=== PATIENT | male | born 1965 | race Caucasian/White ===

== ENCOUNTER 2019-02-21 18:21 | Inpatient (IN) | payer BC, MEDICARE ==
[~2019-02-21] VITALS: Ht 185.4 cm; Wt 113.2 kg
[2019-02-21 19:36] LABS: Basophils # (auto) 0 uL; Basophils % (auto) 0.6 % (0.0-2.0); Eosinophils # (auto) 0.2 uL; Eosinophils % (auto) 2.7 % (0.0-7.0); Hematocrit 32.6 % (41.0-53.0); Hemoglobin 11.1 g/dL (13.5-17.5); Lymphocytes # (auto) 1.1 uL; Lymphocytes % (auto) 12.2 % (10.0-50.0); Mean Corpuscular Hemoglobin 31.3 pg (28.0-32.0); Monocytes # (auto) 0.5 uL; Monocytes % (auto) 5.5 % (0.0-12.0); Neutrophils # (auto) 6.8 uL; Platelet Count (auto) 199 10^3/uL (140-450); Red Blood Cells 3.55 10^6/uL (4.5-5.90); Red Cell Distribution Width 13.8 % (11.8-14.3); White Blood Cell 8.6 10^3/uL (4.4-10.8)
[2019-02-21 20:05] LABS: Albumin 2.5 g/dL (3.4-5.0); BUN/Creatinine Ratio 9.4; Calcium 7.2 mg/dL (8.5-10.1); Potassium 3.9 mmol/L (3.5-5.1)
[2019-02-21 20:08] LABS: Bilirubin, Total 0.2 mg/dL (0.2-1.0); Total Protein 6.2 g/dL (6.4-8.2)
[2019-02-22] MEDS ORDERED: VANCOMYCIN 1GM/250ML 250 ML IV ONE (02:45)
[2019-02-22] MEDS ORDERED: cefTRIAXone 1GM/50ML D5W 50 ML IV ONE (02:45)
[2019-02-22] MEDS ORDERED: NITROGLYCERIN 0.4 MG SL TAB SL PRN (10:30)
[2019-02-22] MEDS ORDERED: MORPHINE SULF INJ 2 MG/ML SYRINGE 1ML IV PRN (10:30)
[2019-02-22] MEDS ORDERED: DEXTROSE (50%) 50ML SYRG IV PRN (10:30)
[2019-02-22] MEDS ORDERED: InsuLIN REG 1unit/0.01ml Soln (100units/ml) SC SCH (11:30)
[2019-02-22] MEDS: ACCU-CHEK COMFORT CURVE STRIP VI SCH ×3 (12:18→21:36)
[2019-02-22] MEDS: PIPERACILLIN-TAZOB 2.25GM 50 ML IV SCH ×3 (12:46→23:56)
[2019-02-22 13:45] VITALS: BP 150/72
[2019-02-22 13:51] VITALS: BP 150/72
[2019-02-22 16:45] VITALS: BP 151/76
[2019-02-22] MEDS: INSULIN 70/30 1unit/0.01ml Susp (100units/ml) SC SCH (17:29)
[2019-02-22] MEDS ORDERED: CARV6.2551 PO (18:56)
[2019-02-22] MEDS ORDERED: LEVO25TA6 PO (18:56)
[2019-02-22] MEDS ORDERED: PAR20T PO (18:56)
[2019-02-22] MEDS ORDERED: FERR1TAB17 PO (18:56)
[2019-02-22] MEDS ORDERED: ATOR20TA50 PO (18:56)
[2019-02-22] MEDS ORDERED: TAMS0.4C36 PO (18:56)
[2019-02-22] MEDS ORDERED: AMLO10TA13 PO (18:56)
[2019-02-22] MEDS ORDERED: HYDR50TA15 PO (18:56)
[2019-02-22] MEDS: INSULIN LANTUS (GLARGINE) 1 /0.01ml (100units/ml) SC SCH (21:36)
[2019-02-22 22:00] VITALS: BP 147/70
[2019-02-23 05:00] VITALS: BP 136/70
[2019-02-23 05:40] LABS: Albumin 2.3 g/dL (3.4-5.0); BUN/Creatinine Ratio 8.8; Calcium 8.4 mg/dL (8.5-10.1); Potassium 4.1 mmol/L (3.5-5.1)
[2019-02-23 05:41] LABS: Bilirubin, Total 0.3 mg/dL (0.2-1.0); Phosphorus 3.7 mg/dL (2.5-4.90); Total Protein 5.8 g/dL (6.4-8.2)
[2019-02-23] MEDS: PIPERACILLIN-TAZOB 2.25GM 50 ML IV SCH ×3 (05:53→17:38)
[2019-02-23] MEDS: ACCU-CHEK COMFORT CURVE STRIP VI SCH ×4 (06:37→21:15)
[2019-02-23] MEDS: INSULIN 70/30 1unit/0.01ml Susp (100units/ml) SC SCH ×3 (08:24→17:30)
[2019-02-23 08:58] VITALS: BP 150/75
[2019-02-23] MEDS: INSULIN LANTUS (GLARGINE) 1 /0.01ml (100units/ml) SC SCH ×2 (11:09→21:14)
[2019-02-23 12:30] VITALS: BP 152/77
[2019-02-23 16:54] VITALS: BP 161/75
[2019-02-23 22:00] VITALS: BP 153/67
[2019-02-23] MEDS: HYDROcodone-ACET 10/325MG TAB PO PRN (22:05)
[2019-02-24] MEDS: PIPERACILLIN-TAZOB 2.25GM 50 ML IV SCH ×2 (00:45→06:01)
[2019-02-24 05:00] VITALS: BP 154/72
[2019-02-24] MEDS: HYDROcodone-ACET 10/325MG TAB PO PRN ×2 (06:01→22:19)
[2019-02-24 08:00] VITALS: BP 157/83
[2019-02-24] MEDS: INSULIN 70/30 1unit/0.01ml Susp (100units/ml) SC SCH ×3 (08:00→17:30)
[2019-02-24] MEDS: ACCU-CHEK COMFORT CURVE STRIP VI SCH ×4 (08:01→22:11)
[2019-02-24 08:50] VITALS: BP 157/83
[2019-02-24] MEDS: INSULIN LANTUS (GLARGINE) 1 /0.01ml (100units/ml) SC SCH ×2 (10:31→22:11)
[2019-02-24 13:00] VITALS: BP 145/74
[2019-02-24] MEDS ORDERED: HEPARIN 1,000 UNITS/ml 1ML VIAL IV ONE ×2 (14:00)
[2019-02-24 17:00] VITALS: BP 150/70
[2019-02-24] MEDS: ceFAZolin 1GM/50ML 50 ML IV SCH (17:47)
[2019-02-24 22:00] VITALS: BP 141/66
[2019-02-25 05:34] VITALS: BP 139/68
[2019-02-25] MEDS: ACCU-CHEK COMFORT CURVE STRIP VI SCH ×2 (07:08→11:26)
[2019-02-25] MEDS: INSULIN 70/30 1unit/0.01ml Susp (100units/ml) SC SCH ×2 (08:00→12:51)
[2019-02-25 08:04] VITALS: BP 149/73
[2019-02-25 09:00] VITALS: BP 149/73
[2019-02-25] MEDS: ceFAZolin 1GM/50ML 50 ML IV SCH (10:06)
[2019-02-25] MEDS: INSULIN LANTUS (GLARGINE) 1 /0.01ml (100units/ml) SC SCH (10:07)
[2019-02-25 13:00] VITALS: BP 157/75
[2019-02-25 15:02] VITALS: BP 149/73
== END 2019-02-25 16:00 | disposition home health service (06) | DRG 314 ==
LOC: ER 18:21 → WEST WING 18:22 → TELE-WESTW 02-22 16:13 → WEST WING 02-24 11:22
PROVIDERS: ADMIT Specialist; ATTEND Specialist
PROC: 5A1D70Z Performance of Urinary Filtration, Intermittent, Less than 6 Hours Per Day (ICD-10-PCS; principal; 2019-02-24)
DX: T82.7XXA Infection and inflammatory reaction due to other cardiac and vascular devices, implants and grafts, initial encounter (principal); N18.6 End stage renal disease; I13.2 Hypertensive heart and chronic kidney disease with heart failure and with stage 5 chronic kidney disease, or end stage renal disease; L03.114 Cellulitis of left upper limb; D63.8 Anemia in other chronic diseases classified elsewhere; E10.22 Type 1 diabetes mellitus with diabetic chronic kidney disease; E10.65 Type 1 diabetes mellitus with hyperglycemia; L03.012 Cellulitis of left finger; Y83.2 Surgical operation with anastomosis, bypass or graft as the cause of abnormal reaction of the patient, or of later complication, without mention of misadventure at the time of the procedure; B95.61 Methicillin susceptible Staphylococcus aureus infection as the cause of diseases classified elsewhere; I50.9 Heart failure, unspecified; Z79.4 Long term (current) use of insulin; Z99.2 Dependence on renal dialysis; Y92.098 Other place in other non-institutional residence as the place of occurrence of the external cause
CPT/HCPCS: 36415; 80053; 82306; 82962; 83036; 83605; 83880; 83970; 84100; 84550; 85025; 87040; 87077; 87186; 87205; 93930; 96367; 96374; 96375; G0378; J0690; J0696; J1815; J2543

== ENCOUNTER 2019-08-04 15:00 | Emergency (ER) | payer BC, MEDICARE ==
[~2019-08-04] VITALS: Ht 185.4 cm; Wt 99.8 kg
[~2019-08-04 15:00] MED LIST: AMLO10TA13 PO; ATOR20TA50 PO; CARV6.2551 PO; FERR1TAB17 PO; HYDR50TA15 PO; LEVO25TA6 PO; PAR20T PO; TAMS0.4C36 PO
[2019-08-04 15:15] VITALS: BP 150/82
[2019-08-04 16:05] LABS: Basophils # (auto) 0 uL; Basophils % (auto) 0.6 % (0.0-2.0); Eosinophils # (auto) 0.2 uL; Eosinophils % (auto) 3.5 % (0.0-7.0); Hematocrit 33.6 % (41.0-53.0); Hemoglobin 11.6 g/dL (13.5-17.5); Lymphocytes # (auto) 1.7 uL; Lymphocytes % (auto) 24.6 % (10.0-50.0); Mean Corpuscular Hemoglobin 31.1 pg (28.0-32.0); Mean Corpuscular Hgb Conc. 34.4 g/dL (32.0-36.0); Mean Corpuscular Volume 90.3 fL (80.0-100.0); Monocytes # (auto) 0.5 uL; Neutrophils # (auto) 4.5 uL; Neutrophils % (auto) 64.3 % (37.0-80.0); Nucleated Red Blood Cells % 0.1 %; Platelet Count (auto) 224 10^3/uL (140-450); Red Blood Cells 3.72 10^6/uL (4.5-5.90); Red Cell Distribution Width 13.2 % (11.8-14.3)
[2019-08-04 16:24] LABS: Albumin 2.5 g/dL (3.4-5.0); Anion Gap 3 (5-15); Blood Urea Nitrogen 18 mg/dL (7-18); Calcium 7.7 mg/dL (8.5-10.1); Carbon Dioxide 32 mmol/L (21-32); Chloride 105 mmol/L (98-107); Glucose 81 mg/dL (74-106); Potassium 3.8 mmol/L (3.5-5.1); Sodium 140 mmol/L (136-145)
[2019-08-04 16:30] LABS: Alanine Aminotransferase 25 U/L (16-61); Alkaline Phosphatase 142 U/L (45-117); Aspartate Aminotransferase 21 U/L (15-37); BUN/Creatinine Ratio 6.9; Bilirubin, Total 0.2 mg/dL (0.2-1.0); GFR African American 33 mL/min; GFR Non-African American 27 mL/min; Total Protein 6.3 g/dL (6.4-8.2)
== END 2019-08-04 20:47 | disposition home or self-care (01) ==
LOC: EDBD 15:00 → ER 15:00
DX: R10.11 Right upper quadrant pain (principal); R10.31 Right lower quadrant pain; E44.0 Moderate protein-calorie malnutrition; I12.0 Hypertensive chronic kidney disease with stage 5 chronic kidney disease or end stage renal disease; E11.22 Type 2 diabetes mellitus with diabetic chronic kidney disease; N18.6 End stage renal disease; Z99.2 Dependence on renal dialysis
CPT/HCPCS: 36415; 71045; 74176; 80053; 82962; 83880; 84484; 85025

== ENCOUNTER → 2019-11-03 | Emergency (ER) | payer MEDICARE, MEDICAID ==
[~2019-11-03] VITALS: Ht 185.4 cm; Wt 108.9 kg
[~2019-11-03] MED LIST changes: +amLODIPine BESYLATE 5 MG TAB PO ONE
[2019-11-03 17:27] LABS: Basophils # (auto) 0 10 ^3/uL (0-0.2); Basophils % (auto) 0.7 % (0.0-2.0); Eosinophils # (auto) 0.2 10 ^3/uL (0-0.8); Eosinophils % (auto) 3.1 % (0.0-7.0); Hematocrit 28.3 % (41.0-53.0); Hemoglobin 9.4 g/dL (13.5-17.5); Lymphocytes # (auto) 1.4 10 ^3/uL (0.4-5.4); Lymphocytes % (auto) 20.7 % (10.0-50.0); Mean Corpuscular Hemoglobin 31.4 pg (28.0-32.0); Mean Corpuscular Hgb Conc. 33.3 g/dL (32.0-36.0); Mean Corpuscular Volume 94.2 fL (80.0-100.0); Monocytes # (auto) 0.5 10 ^3/uL (0-1.3); Monocytes % (auto) 6.5 % (0.0-12.0); Neutrophils # (auto) 4.8 10 ^3/uL (1.6-8.6); Platelet Count (auto) 232 10^3/uL (140-450); Red Cell Distribution Width 13.5 % (11.8-14.3); White Blood Cell 6.9 10^3/uL (4.4-10.8)
[2019-11-03 17:39] LABS: Albumin 2.3 g/dL (3.4-5.0); Anion Gap 6 (5-15); Calcium 7.3 mg/dL (8.5-10.1); Carbon Dioxide 29 mmol/L (21-32); Chloride 103 mmol/L (98-107); Glucose 156 mg/dL (74-106); Potassium 3.3 mmol/L (3.5-5.1); Sodium 138 mmol/L (136-145)
[2019-11-03 17:50] LABS: Alanine Aminotransferase 17 U/L (16-61); Alkaline Phosphatase 98 U/L (45-117); Aspartate Aminotransferase 14 U/L (15-37); BUN/Creatinine Ratio 6.5; Bilirubin, Total 0.3 mg/dL (0.2-1.0); Blood Urea Nitrogen 29 mg/dL (7-18); GFR African American 18 mL/min; GFR Non-African American 15 mL/min
[2019-11-03 18:00] VITALS: BP 176/72
== END | disposition home or self-care (01) ==
LOC: EDUNIT# 16:23 → EDBD 16:29 → ER 16:29
DX: E11.649 Type 2 diabetes mellitus with hypoglycemia without coma (principal); I12.0 Hypertensive chronic kidney disease with stage 5 chronic kidney disease or end stage renal disease; E11.22 Type 2 diabetes mellitus with diabetic chronic kidney disease; N18.6 End stage renal disease; E78.5 Hyperlipidemia, unspecified
CPT/HCPCS: 36415; 71045; 80053; 83735; 85025; 93005

== ENCOUNTER 2022-01-02 13:46 | Inpatient (IN) | payer MEDICARE, MEDICAID ==
[~2022-01-02] VITALS: Ht 185.4 cm; Wt 77.9 kg
[~2022-01-02 13:46] MED LIST changes: +AMLO-496 PO; -AMLO10TA13 PO; -amLODIPine BESYLATE 5 MG TAB PO ONE
[2022-01-02] MEDS ORDERED: LORazepam 2MG/ML-1ML VIAL IV ONE ×2 (14:00→18:30)
[2022-01-02] MEDS ORDERED: hydrALAZINE HCL 20 MG/ML VL IV ONE (16:00)
[2022-01-02 16:19] LABS: Basophils # (auto) 0 10 ^3/uL (0-0.2); Basophils % (auto) 0.5 % (0.0-2.0); Eosinophils # (auto) 0.1 10 ^3/uL (0-0.8); Eosinophils % (auto) 2.3 % (0.0-7.0); Hemoglobin 13.8 g/dL (13.5-17.5); Lymphocytes # (auto) 0.6 10 ^3/uL (0.4-5.4); Lymphocytes % (auto) 12.7 % (10.0-50.0); Mean Corpuscular Hemoglobin 32.3 pg (28.0-32.0); Mean Corpuscular Hgb Conc. 32.8 g/dL (32.0-36.0); Mean Corpuscular Volume 98.5 fL (80.0-100.0); Monocytes # (auto) 0.3 10 ^3/uL (0-1.3); Monocytes % (auto) 6.7 % (0.0-12.0); Neutrophils # (auto) 3.6 10 ^3/uL (1.6-8.6); Neutrophils % (auto) 77.8 % (37.0-80.0); Nucleated Red Blood Cells % 0.1 %; Red Blood Cells 4.27 10^6/uL (4.5-5.90); Red Cell Distribution Width 16.3 % (11.8-14.3); White Blood Cell 4.6 10^3/uL (4.4-10.8)
[2022-01-02 16:34] LABS: Albumin 2.8 g/dL (3.4-5.0); Anion Gap 7 (5-15); BUN/Creatinine Ratio 10.3; Blood Alcohol < 3.0 mg/dL (0-5); Blood Urea Nitrogen 28 mg/dL (7-18); Calcium 8.4 mg/dL (8.5-10.1); Carbon Dioxide 29 mmol/L (21-32); Chloride 103 mmol/L (98-107); GFR African American 31 mL/min; GFR Non-African American 26 mL/min; Glucose 52 mg/dL (74-106); Magnesium 2.3 mg/dL (1.6-2.6); Potassium 4.1 mmol/L (3.5-5.1); Sodium 139 mmol/L (136-145)
[2022-01-02 16:36] LABS: Alanine Aminotransferase 15 U/L (16-61); Alkaline Phosphatase 139 U/L (45-117); Aspartate Aminotransferase 12 U/L (15-37); Bilirubin, Total 0.3 mg/dL (0.2-1.0); Total Protein 6.9 g/dL (6.4-8.2)
[2022-01-02 16:40] LABS: INR 1.05 (0.9-1.15); Partial Thromboplastin Time 34.2 sec (24.6-33.4)
[2022-01-02] MEDS ORDERED: DEXTROSE (25%) 10 ML SYRG IV ONE (17:15)
[2022-01-02] MEDS ORDERED: DEXTROSE 10% 250 ML IV ONE (17:30)
[2022-01-02] MEDS ORDERED: NITROGLYCERIN 0.4 MG SL TAB SL PRN (21:30)
[2022-01-02] MEDS ORDERED: ACETAMINOPHEN 650 MG RECT SUPP PR PRN (21:30)
[2022-01-02] MEDS ORDERED: MORPHINE SULFATE INJ 2 MG/ml SYRG IV PRN (21:30)
[2022-01-02] MEDS ORDERED: PHENYTOIN IV DILANTIN 500 MG in SODIUM CHL 0.9% 100 ML IV ONE (21:30)
[2022-01-02] MEDS ORDERED: VANCOMYCIN 1GM/250ML 250 ML IV ONE (21:30)
[2022-01-02] MEDS ORDERED: VANCOMYCIN PER PHARMACY 0 MG IV SCH (21:30)
[2022-01-03] MEDS ORDERED: LABETALOL HCL 5 MG/ML 4ML SYRINGE IV ONE (00:15)
[2022-01-03] MEDS: MEROPENEM 500MG IVPB 50 ML IV SCH (01:28)
[2022-01-03] MEDS: hydrALAZINE HCL 20 MG/ML VL IV PRN ×3 (03:01→20:51)
[2022-01-03 04:31] LABS: Albumin 2.4 g/dL (3.4-5.0); Calcium 8.5 mg/dL (8.5-10.1); Potassium 4.7 mmol/L (3.5-5.1)
[2022-01-03 04:37] LABS: Phosphorus 2.9 mg/dL (2.5-4.90)
[2022-01-03] MEDS: DEXTROSE 10% 250 ML IV PRN ×4 (05:10→17:25)
[2022-01-03] MEDS ORDERED: ALBUTEROL SULF 2.5 MG/0.5ML(0.5%) NEB SOLN NEB PRN (09:15)
[2022-01-03] MEDS ORDERED: PHENYTOIN SODIUM 50 MG/ML 2ML VIAL IV ONE (09:45)
[2022-01-03] MEDS ORDERED: LORazepam 2MG/ML-1ML VIAL IV PRN ×2 (09:45)
[2022-01-03] MEDS: ASPirin 81 mg TAB PO SCH (10:00)
[2022-01-03] MEDS ORDERED: PHENYTOIN SODIUM 100 MG CAP PO SCH (10:00)
[2022-01-03 10:36] VITALS: BP 153/69
[2022-01-03] MEDS: PANTOPRAZOLE 40 MG/10 ML VIAL INJ IV SCH (10:45)
[2022-01-03] MEDS: PHENYTOIN SODIUM 50 MG/ML 2ML VIAL IV SCH ×2 (15:57→22:00)
[2022-01-03] MEDS: DEXTROSE 10% 1,000 ML IV SCH (15:58)
[2022-01-03] MEDS ORDERED: VANCOMYCIN 1GM/250ML 250 ML IV ONE (17:00)
[2022-01-03] MEDS: ATORVASTATIN 20 MG TAB PO SCH (22:00)
[2022-01-04 00:09] VITALS: BP 164/79
[2022-01-04] MEDS: MEROPENEM 500MG IVPB 50 ML IV SCH (01:56)
[2022-01-04 04:00] VITALS: BP 162/71
[2022-01-04] MEDS: hydrALAZINE HCL 20 MG/ML VL IV PRN (04:23)
[2022-01-04] MEDS: DEXTROSE 10% 250 ML IV PRN (06:08)
[2022-01-04 06:40] LABS: Albumin 2.3 g/dL (3.4-5.0); Calcium 8.3 mg/dL (8.5-10.1); Potassium 4.8 mmol/L (3.5-5.1)
[2022-01-04 06:42] LABS: BUN/Creatinine Ratio 9.3
[2022-01-04] MEDS: PHENYTOIN SODIUM 50 MG/ML 2ML VIAL IV SCH ×3 (06:46→22:17)
[2022-01-04 06:53] LABS: Basophils # (auto) 0 10 ^3/uL (0-0.2); Basophils % (auto) 0.6 % (0.0-2.0); Eosinophils # (auto) 0.2 10 ^3/uL (0-0.8); Eosinophils % (auto) 3.7 % (0.0-7.0); Hemoglobin 12.6 g/dL (13.5-17.5); Lymphocytes # (auto) 0.7 10 ^3/uL (0.4-5.4); Lymphocytes % (auto) 12.9 % (10.0-50.0); Mean Corpuscular Hemoglobin 33.4 pg (28.0-32.0); Mean Corpuscular Hgb Conc. 34.1 g/dL (32.0-36.0); Monocytes # (auto) 0.5 10 ^3/uL (0-1.3); Monocytes % (auto) 8.7 % (0.0-12.0); Neutrophils # (auto) 4.3 10 ^3/uL (1.6-8.6); Neutrophils % (auto) 74.1 % (37.0-80.0); Red Blood Cells 3.77 10^6/uL (4.5-5.90); Red Cell Distribution Width 16.1 % (11.8-14.3); White Blood Cell 5.8 10^3/uL (4.4-10.8)
[2022-01-04 09:00] VITALS: BP 178/57
[2022-01-04] MEDS: PANTOPRAZOLE 40 MG/10 ML VIAL INJ IV SCH (09:29)
[2022-01-04] MEDS: ASPirin 81 mg TAB PO SCH (09:36)
[2022-01-04] MEDS ORDERED: DEXTROSE (50%) 50ML SYRG IV PRN (10:30)
[2022-01-04] MEDS ORDERED: SODIUM CHL 0.9% 1000 ML BAG XX ONE (11:00)
[2022-01-04 13:00] VITALS: BP 165/78
[2022-01-04] MEDS: ACCU-CHEK COMFORT CURVE STRIP VI SCH ×3 (13:26→20:24)
[2022-01-04] MEDS: DEXTROSE 10% 1,000 ML IV SCH (16:10)
[2022-01-04 17:00] VITALS: BP 148/74
[2022-01-04] MEDS ORDERED: VANCOMYCIN 500 MG in D5W 5% 100 ML IV ONE (18:15)
[2022-01-04 22:00] VITALS: BP 129/48
[2022-01-04] MEDS: ATORVASTATIN 20 MG TAB PO SCH (22:00)
[2022-01-05] MEDS: MEROPENEM 500MG IVPB 50 ML IV SCH ×2 (00:07→23:43)
[2022-01-05] MEDS: ACCU-CHEK COMFORT CURVE STRIP VI SCH ×7 (00:07→23:43)
[2022-01-05 05:00] VITALS: BP 182/46
[2022-01-05 05:22] LABS: Basophils # (auto) 0 10 ^3/uL (0-0.2); Eosinophils # (auto) 0.2 10 ^3/uL (0-0.8); Eosinophils % (auto) 4.4 % (0.0-7.0); Hemoglobin 11.9 g/dL (13.5-17.5); Lymphocytes # (auto) 0.6 10 ^3/uL (0.4-5.4); Lymphocytes % (auto) 17.1 % (10.0-50.0); Mean Corpuscular Hgb Conc. 33.9 g/dL (32.0-36.0); Mean Corpuscular Volume 97.3 fL (80.0-100.0); Monocytes # (auto) 0.4 10 ^3/uL (0-1.3); Monocytes % (auto) 10.3 % (0.0-12.0); Neutrophils # (auto) 2.5 10 ^3/uL (1.6-8.6); Neutrophils % (auto) 67.2 % (37.0-80.0); Red Blood Cells 3.59 10^6/uL (4.5-5.90); Red Cell Distribution Width 15.9 % (11.8-14.3); White Blood Cell 3.8 10^3/uL (4.4-10.8)
[2022-01-05 05:42] LABS: Potassium 4.2 mmol/L (3.5-5.1)
[2022-01-05 05:47] LABS: Folate (Folic Acid) 14.86 ng/mL (5.38-24)
[2022-01-05] MEDS: PHENYTOIN SODIUM 50 MG/ML 2ML VIAL IV SCH ×3 (05:48→20:53)
[2022-01-05 05:49] LABS: BUN/Creatinine Ratio 7.9; Calcium 7.9 mg/dL (8.5-10.1)
[2022-01-05] MEDS: LABETALOL HCL 5 MG/ML 4ML SYRINGE IV PRN (06:05)
[2022-01-05 09:00] VITALS: BP 166/73
[2022-01-05] MEDS: ASPirin 81 mg TAB PO SCH (09:07)
[2022-01-05] MEDS: PANTOPRAZOLE 40 MG/10 ML VIAL INJ IV SCH (09:08)
[2022-01-05] MEDS: hydrALAZINE HCL 20 MG/ML VL IV PRN ×3 (12:43→21:51)
[2022-01-05 13:00] VITALS: BP 177/72
[2022-01-05] MEDS: DEXTROSE 10% 1,000 ML IV SCH (14:50)
[2022-01-05 17:00] VITALS: BP 176/72
[2022-01-05 19:00] VITALS: BP 176/72
[2022-01-05] MEDS: ATORVASTATIN 20 MG TAB PO SCH (20:54)
[2022-01-05 22:00] VITALS: BP_SYST 170; BP_SYST 176; BP_DIAS 65; BP_DIAS 72
[2022-01-06] VITALS: BP 168/65
[2022-01-06] MEDS ORDERED: DEXTROSE (50%) 50ML SYRG IV ONE (01:15)
[2022-01-06] MEDS: hydrALAZINE HCL 20 MG/ML VL IV PRN ×3 (04:17→22:53)
[2022-01-06 05:00] VITALS: BP 178/54
[2022-01-06] MEDS: InsuLIN REG 1unit/0.01ml Soln (100units/ml) SC SCH ×3 (06:20→17:00)
[2022-01-06] MEDS: PHENYTOIN SODIUM 50 MG/ML 2ML VIAL IV SCH ×3 (06:20→21:52)
[2022-01-06] MEDS: LABETALOL HCL 5 MG/ML 4ML SYRINGE IV PRN (06:22)
[2022-01-06] MEDS ORDERED: ACCU-CHEK COMFORT CURVE STRIP VI ONE (07:00)
[2022-01-06 09:00] VITALS: BP 158/69
[2022-01-06] MEDS: ASPirin 81 mg TAB PO SCH (09:41)
[2022-01-06] MEDS: PANTOPRAZOLE 40 MG/10 ML VIAL INJ IV SCH (09:41)
[2022-01-06 13:00] VITALS: BP 159/74
[2022-01-06 16:30] VITALS: BP 155/65
[2022-01-06] MEDS: ATORVASTATIN 20 MG TAB PO SCH (21:21)
[2022-01-06 22:00] VITALS: BP 158/65
[2022-01-07] MEDS: MEROPENEM 500MG IVPB 50 ML IV SCH (00:09)
[2022-01-07 01:33] VITALS: BP 158/65
[2022-01-07 05:00] VITALS: BP 164/68
[2022-01-07] MEDS: PHENYTOIN SODIUM 50 MG/ML 2ML VIAL IV SCH (05:57)
[2022-01-07] MEDS: InsuLIN REG 1unit/0.01ml Soln (100units/ml) SC SCH (06:16)
[2022-01-07 09:00] VITALS: BP 141/62
[2022-01-07] MEDS: PANTOPRAZOLE 40 MG/10 ML VIAL INJ IV SCH (10:00)
[2022-01-07] MEDS: ASPirin 81 mg TAB PO SCH (10:38)
== END 2022-01-07 11:30 | disposition home or self-care (01) | DRG 871 ==
LOC: EDBD 13:46 → ER 13:46 → TELE 21:26 → TELE-WESTW 01-03 22:51
PROVIDERS: ADMIT Specialist; ATTEND Specialist
PROC: 5A1D70Z Performance of Urinary Filtration, Intermittent, Less than 6 Hours Per Day (ICD-10-PCS; 2022-01-04)
PROC: 5A1D70Z Performance of Urinary Filtration, Intermittent, Less than 6 Hours Per Day (ICD-10-PCS; principal; 2022-01-06)
DX: A41.9 Sepsis, unspecified organism (principal); J18.9 Pneumonia, unspecified organism; N18.6 End stage renal disease; J96.00 Acute respiratory failure, unspecified whether with hypoxia or hypercapnia; I69.354 Hemiplegia and hemiparesis following cerebral infarction affecting left non-dominant side; I12.0 Hypertensive chronic kidney disease with stage 5 chronic kidney disease or end stage renal disease; J44.0 Chronic obstructive pulmonary disease with (acute) lower respiratory infection; J98.11 Atelectasis; G40.409 Other generalized epilepsy and epileptic syndromes, not intractable, without status epilepticus; E11.22 Type 2 diabetes mellitus with diabetic chronic kidney disease; E11.649 Type 2 diabetes mellitus with hypoglycemia without coma; G93.89 Other specified disorders of brain; E78.5 Hyperlipidemia, unspecified; E66.9 Obesity, unspecified; D63.1 Anemia in chronic kidney disease; R25.2 Cramp and spasm; F32.A Depression, unspecified; M10.9 Gout, unspecified; Z20.822 Contact with and (suspected) exposure to COVID-19; Z79.82 Long term (current) use of aspirin; Z99.2 Dependence on renal dialysis; Z79.899 Other long term (current) drug therapy; Z83.3 Family history of diabetes mellitus; Z90.49 Acquired absence of other specified parts of digestive tract; Z68.22 Body mass index [BMI] 22.0-22.9, adult
CPT/HCPCS: 36415; 70450; 70551; 71045; 80048; 80053; 80061; 80069; 80185; 80202; 80320; 82607; 82746; 82962; 83605; 83735; 85025; 85610; 85730; 87040; 87077; 87186; 90935; 92610; 93005; 95819; 96361; 96374; 96375; 96376; C9113; G0378; J1815; J2185; J3490; J7060

== ENCOUNTER 2022-01-23 21:37 | Emergency (ER) | payer MEDICARE, MEDICAID ==
[~2022-01-23] VITALS: Ht 177.8 cm; Wt 75.0 kg
[2022-01-23 23:23] LABS: Basophils # (auto) 0 10 ^3/uL (0-0.2); Basophils % (auto) 0.7 % (0.0-2.0); Eosinophils # (auto) 0.1 10 ^3/uL (0-0.8); Eosinophils % (auto) 1.9 % (0.0-7.0); Hematocrit 37.6 % (41.0-53.0); Hemoglobin 12.2 g/dL (13.5-17.5); Lymphocytes # (auto) 0.6 10 ^3/uL (0.4-5.4); Lymphocytes % (auto) 11.5 % (10.0-50.0); Mean Corpuscular Hemoglobin 31.5 pg (28.0-32.0); Mean Corpuscular Hgb Conc. 32.3 g/dL (32.0-36.0); Mean Corpuscular Volume 97.4 fL (80.0-100.0); Monocytes # (auto) 0.2 10 ^3/uL (0-1.3); Monocytes % (auto) 4.6 % (0.0-12.0); Neutrophils # (auto) 4.3 10 ^3/uL (1.6-8.6); Neutrophils % (auto) 81.3 % (37.0-80.0); Red Blood Cells 3.86 10^6/uL (4.5-5.90); Red Cell Distribution Width 14.4 % (11.8-14.3); White Blood Cell 5.3 10^3/uL (4.4-10.8)
[2022-01-23] MEDS ORDERED: hydrALAZINE HCL 20 MG/ML VL IV ONE (23:30)
[2022-01-23] MEDS ORDERED: PHENYTOIN SODIUM 50 MG/ML 2ML VIAL IV ONE (23:30)
[2022-01-23 23:39] LABS: INR 1.04 (0.9-1.15)
[2022-01-23 23:43] LABS: Alanine Aminotransferase 22 U/L (16-61); Albumin 2.5 g/dL (3.4-5.0); Anion Gap 8 (5-15); BUN/Creatinine Ratio 10.1; Blood Alcohol < 3.0 mg/dL (0-5); Blood Urea Nitrogen 29 mg/dL (7-18); Calcium 7.9 mg/dL (8.5-10.1); Carbon Dioxide 29 mmol/L (21-32); Chloride 102 mmol/L (98-107); GFR African American 29 mL/min; GFR Non-African American 24 mL/min; Glucose 100 mg/dL (74-106); Potassium 4.8 mmol/L (3.5-5.1); Sodium 139 mmol/L (136-145)
[2022-01-23 23:45] LABS: Alkaline Phosphatase 156 U/L (45-117); Aspartate Aminotransferase 19 U/L (15-37); Bilirubin, Total 0.3 mg/dL (0.2-1.0); Total Protein 6.6 g/dL (6.4-8.2)
[2022-01-24] MEDS ORDERED: PHENYTOIN SODIUM 50 MG/ML 2ML VIAL IV ONE (00:30)
[2022-01-24] MEDS ORDERED: hydrALAZINE HCL 20 MG/ML VL IV ONE (00:30)
[2022-01-24] MEDS ORDERED: IOHEXOL 350 MG/ML 100ML IJ ONE (02:50)
[2022-01-24] MEDS ORDERED: DEXTROSE 50% SYRINGE 50 ML IV ONE ×2 (07:08→07:33)
[2022-01-24 07:09] VITALS: BP 169/51
== END 2022-01-24 12:36 | disposition admitted as inpatient to this hospital (09) ==
LOC: ER 21:37 → EDUNIT# 21:37 → EDBD 21:37 → ER 01-24 12:36
DX: I63.89 Other cerebral infarction (principal); I16.0 Hypertensive urgency; I12.0 Hypertensive chronic kidney disease with stage 5 chronic kidney disease or end stage renal disease; E11.22 Type 2 diabetes mellitus with diabetic chronic kidney disease; N18.6 End stage renal disease; E78.5 Hyperlipidemia, unspecified; Z20.822 Contact with and (suspected) exposure to COVID-19; Z99.2 Dependence on renal dialysis; Z86.73 Personal history of transient ischemic attack (TIA), and cerebral infarction without residual deficits; Z79.899 Other long term (current) drug therapy
CPT/HCPCS: 36415; 70450; 70496; 70498; 71045; 80053; 80185; 80320; 82962; 84484; 85025; 85610; 87426; 93005; 96374; 96375; 96376; 99291; J0360; J1165; J7042; Q9967

== ENCOUNTER 2022-04-05 13:03 | Inpatient (IN) | payer MEDICARE, MEDICAID ==
[~2022-04-05] VITALS: Ht 175.3 cm; Wt 76.3 kg
[2022-04-05] MEDS ORDERED: SODIUM CHLORIDE 0.9% 1,000 ML IV ONE ×2 (13:15)
[2022-04-05] MEDS ORDERED: hydrALAZINE HCL 20 MG/ML VL IV ONE (13:30)
[2022-04-05 14:00] LABS: Basophils # (auto) 0 10 ^3/uL (0-0.2); Eosinophils # (auto) 0.1 10 ^3/uL (0-0.8); Hematocrit 25.3 % (41.0-53.0); Lymphocytes # (auto) 0.5 10 ^3/uL (0.4-5.4); Monocytes # (auto) 0.3 10 ^3/uL (0-1.3); Red Blood Cells 2.71 10^6/uL (4.5-5.90)
[2022-04-05 14:01] LABS: Eosinophils % (auto) 2.8 % (0.0-7.0); Hemoglobin 8.4 g/dL (13.5-17.5); Lymphocytes % (auto) 13.3 % (10.0-50.0); Mean Corpuscular Hemoglobin 31.1 pg (28.0-32.0); Mean Corpuscular Hgb Conc. 33.3 g/dL (32.0-36.0); Mean Corpuscular Volume 93.4 fL (80.0-100.0); Monocytes % (auto) 9.1 % (0.0-12.0); Neutrophils # (auto) 2.7 10 ^3/uL (1.6-8.6); Neutrophils % (auto) 73.8 % (37.0-80.0); Red Cell Distribution Width 19.7 % (11.8-14.3); White Blood Cell 3.7 10^3/uL (4.4-10.8)
[2022-04-05 14:30] LABS: Albumin 2.1 g/dL (3.4-5.0); Calcium 7.1 mg/dL (8.5-10.1); Potassium 4.3 mmol/L (3.5-5.1)
[2022-04-05 14:34] LABS: BUN/Creatinine Ratio 12.5; Bilirubin, Total 0.2 mg/dL (0.2-1.0); Total Protein 5.2 g/dL (6.4-8.2)
[2022-04-05] MEDS ORDERED: MAGNESIUM SULFATE 1GM/100ML 100 ML IV ONE (16:45)
[2022-04-05] MEDS ORDERED: ONDANSETRON HCL 4 MG/2 ML VIAL IV PRN (19:45)
[2022-04-05] MEDS ORDERED: MORPHINE SULFATE INJ 2 MG/ml SYRG IV PRN (19:45)
[2022-04-05] MEDS ORDERED: NITROGLYCERIN 0.4 MG SL TAB SL PRN (19:45)
[2022-04-05] MEDS: PHENYTOIN SODIUM 100 MG CAP PO SCH (22:49)
[2022-04-05] MEDS: CARVEDILOL 3.125 MG TAB PO SCH (22:50)
[2022-04-06 00:36] VITALS: BP 191/74
[2022-04-06] MEDS: hydrALAZINE HCL 25 MG TAB PO SCH ×4 (01:38→22:00)
[2022-04-06 05:00] VITALS: BP 189/80
[2022-04-06 06:33] LABS: Basophils # (auto) 0 10 ^3/uL (0-0.2); Eosinophils # (auto) 0.1 10 ^3/uL (0-0.8); Hemoglobin 7.9 g/dL (13.5-17.5); Monocytes # (auto) 0.3 10 ^3/uL (0-1.3)
[2022-04-06 06:34] LABS: Eosinophils % (auto) 3.1 % (0.0-7.0); Hematocrit 22.8 % (41.0-53.0); Lymphocytes # (auto) 0.7 10 ^3/uL (0.4-5.4); Lymphocytes % (auto) 16.2 % (10.0-50.0); Mean Corpuscular Hemoglobin 32.4 pg (28.0-32.0); Mean Corpuscular Hgb Conc. 34.8 g/dL (32.0-36.0); Mean Corpuscular Volume 93.2 fL (80.0-100.0); Monocytes % (auto) 7.8 % (0.0-12.0); Neutrophils % (auto) 71.9 % (37.0-80.0); Red Blood Cells 2.45 10^6/uL (4.5-5.90); Red Cell Distribution Width 19.9 % (11.8-14.3); White Blood Cell 4.2 10^3/uL (4.4-10.8)
[2022-04-06 06:39] LABS: Albumin 2.3 g/dL (3.4-5.0); Calcium 7.8 mg/dL (8.5-10.1)
[2022-04-06 06:43] LABS: BUN/Creatinine Ratio 13.9; Bilirubin, Total 0.3 mg/dL (0.2-1.0); Total Protein 5.5 g/dL (6.4-8.2)
[2022-04-06 06:50] LABS: Potassium 5.7 mmol/L (3.5-5.1)
[2022-04-06] MEDS ORDERED: LEVOTHYROXINE SODIUM 25 MCG TAB PO SCH (07:00)
[2022-04-06] MEDS ORDERED: SODIUM ZIRCONIUM CYCL 10 GM PAK PO ONE (08:00)
[2022-04-06] MEDS: amLODIPine BESYLATE 5 MG TAB PO SCH (08:55)
[2022-04-06] MEDS: FERROUS SULFATE 325mg EC TAB PO SCH ×2 (08:55→12:09)
[2022-04-06] MEDS: CARVEDILOL 3.125 MG TAB PO SCH (08:56)
[2022-04-06] MEDS: ATORVASTATIN 20 MG TAB PO SCH (08:56)
[2022-04-06] MEDS: PARoxetine 20 MG TAB PO SCH (08:56)
[2022-04-06] MEDS ORDERED: TAMSULOSIN HYDROCHLORIDE 0.4 MG CAP PO SCH (10:00)
[2022-04-06] MEDS ORDERED: PHE100C PO (10:05)
[2022-04-06 12:20] VITALS: BP 151/73
[2022-04-06 12:21] VITALS: BP 174/87
[2022-04-06] MEDS ORDERED: B-COMPLEX W/ C & FOLIC ACID(NEPHROVITE TAB) PO ONE (13:00)
[2022-04-06] MEDS ORDERED: GABA100C9 PO (13:14)
[2022-04-06] MEDS ORDERED: ASPI-498 PO (13:14)
[2022-04-06] MEDS ORDERED: POM PO (13:14)
[2022-04-06] MEDS ORDERED: FER325T PO (13:14)
[2022-04-06] MEDS ORDERED: PANTOPRAZOLE 40 MG TAB PO ONE (13:15)
[2022-04-06] MEDS: ACCU-CHEK COMFORT CURVE STRIP VI SCH ×2 (16:48→21:53)
[2022-04-06] MEDS: InsuLIN REG 1unit/0.01ml Soln (100units/ml) SC SCH ×2 (16:48→21:52)
[2022-04-06 17:06] VITALS: BP 185/72
[2022-04-06] MEDS ORDERED: PHENYTOIN IV DILANTIN 500 MG in SODIUM CHL 0.9% 100 ML IV ONE (21:15)
[2022-04-06] MEDS ORDERED: LORazepam 2MG/ML-1ML VIAL IV PRN (21:30)
[2022-04-06 21:40] VITALS: BP 190/70
[2022-04-06] MEDS: CARVEDILOL 12.5 MG TAB PO SCH (22:00)
[2022-04-06] MEDS: PHENYTOIN SODIUM 100 MG CAP PO SCH (22:00)
[2022-04-06] MEDS: hydrALAZINE HCL 20 MG/ML VL IV PRN (22:53)
[2022-04-07 01:00] VITALS: BP 170/80
[2022-04-07 04:59] VITALS: BP 169/75
[2022-04-07 05:50] LABS: Basophils # (auto) 0.1 10 ^3/uL (0-0.2); Eosinophils # (auto) 0.2 10 ^3/uL (0-0.8); Eosinophils % (auto) 3.3 % (0.0-7.0); Hematocrit 25.7 % (41.0-53.0); Hemoglobin 8.6 g/dL (13.5-17.5); Lymphocytes # (auto) 1.2 10 ^3/uL (0.4-5.4); Lymphocytes % (auto) 23.4 % (10.0-50.0); Mean Corpuscular Hemoglobin 31.4 pg (28.0-32.0); Mean Corpuscular Hgb Conc. 33.5 g/dL (32.0-36.0); Monocytes # (auto) 0.3 10 ^3/uL (0-1.3); Monocytes % (auto) 6.6 % (0.0-12.0); Neutrophils # (auto) 3.4 10 ^3/uL (1.6-8.6); Neutrophils % (auto) 65.7 % (37.0-80.0); Nucleated Red Blood Cells % 0.1 %; Red Blood Cells 2.73 10^6/uL (4.5-5.90); Red Cell Distribution Width 21.4 % (11.8-14.3); White Blood Cell 5.1 10^3/uL (4.4-10.8)
[2022-04-07 06:12] LABS: % Iron Saturation 27.3 % (20-55)
[2022-04-07 06:28] LABS: BUN/Creatinine Ratio 13.6; Calcium 8.3 mg/dL (8.5-10.1)
[2022-04-07] MEDS: InsuLIN REG 1unit/0.01ml Soln (100units/ml) SC SCH ×4 (06:32→21:08)
[2022-04-07] MEDS: ACCU-CHEK COMFORT CURVE STRIP VI SCH ×4 (06:32→21:08)
[2022-04-07] MEDS: DEXTROSE (50%) 50ML SYRG IV PRN (06:35)
[2022-04-07] MEDS: LEVOTHYROXINE SODIUM 25 MCG TAB PO SCH (06:54)
[2022-04-07] MEDS: hydrALAZINE HCL 20 MG/ML VL IV PRN (06:55)
[2022-04-07] MEDS ORDERED: SODIUM ZIRCONIUM CYCL 10 GM PAK PO ONE ×2 (07:15→08:00)
[2022-04-07] MEDS ORDERED: DEXTROSE 10% 1,000 ML IV ONE (08:00)
[2022-04-07] MEDS ORDERED: CALCIUM GLUC 1,000mg/50ml-NS 50 ML IV ONE (08:00)
[2022-04-07] MEDS: PANTOPRAZOLE 40 MG TAB PO SCH (08:52)
[2022-04-07] MEDS: amLODIPine BESYLATE 5 MG TAB PO SCH (08:52)
[2022-04-07] MEDS: PARoxetine 20 MG TAB PO SCH (08:53)
[2022-04-07] MEDS: B-COMPLEX W/ C & FOLIC ACID(NEPHROVITE TAB) PO SCH (08:53)
[2022-04-07] MEDS: CARVEDILOL 12.5 MG TAB PO SCH ×2 (08:54→21:38)
[2022-04-07] MEDS: ATORVASTATIN 20 MG TAB PO SCH (08:55)
[2022-04-07 13:00] VITALS: BP 187/84
[2022-04-07] MEDS: hydrALAZINE HCL 25 MG TAB PO SCH ×2 (13:20→21:37)
[2022-04-07] MEDS: PHENYTOIN SODIUM 100 MG CAP PO SCH (21:38)
[2022-04-07 21:46] VITALS: BP 151/58
[2022-04-08] MEDS: hydrALAZINE HCL 20 MG/ML VL IV PRN ×2 (04:31→13:35)
[2022-04-08 04:51] VITALS: BP 173/69
[2022-04-08] MEDS: LEVOTHYROXINE SODIUM 25 MCG TAB PO SCH (06:26)
[2022-04-08] MEDS: InsuLIN REG 1unit/0.01ml Soln (100units/ml) SC SCH ×2 (06:26→12:31)
[2022-04-08] MEDS: ACCU-CHEK COMFORT CURVE STRIP VI SCH ×2 (06:27→12:44)
[2022-04-08] MEDS: DEXTROSE (50%) 50ML SYRG IV PRN (06:28)
[2022-04-08] MEDS: B-COMPLEX W/ C & FOLIC ACID(NEPHROVITE TAB) PO SCH (08:49)
[2022-04-08] MEDS: hydrALAZINE HCL 25 MG TAB PO SCH (08:50)
[2022-04-08] MEDS: CARVEDILOL 12.5 MG TAB PO SCH (08:51)
[2022-04-08] MEDS: ATORVASTATIN 20 MG TAB PO SCH (08:51)
[2022-04-08] MEDS: amLODIPine BESYLATE 5 MG TAB PO SCH (08:52)
[2022-04-08] MEDS: PARoxetine 20 MG TAB PO SCH (08:52)
[2022-04-08] MEDS: PANTOPRAZOLE 40 MG TAB PO SCH (08:52)
[2022-04-08 09:18] VITALS: BP 176/70
[2022-04-08 12:37] VITALS: BP 164/64
[2022-04-08 14:40] VITALS: BP 150/64
[2022-04-09 12:46] LABS: Hepatitis A Ab IgM Negative; Hepatitis B Core IgM Negative; Hepatitis C Antibody Negative (Negative)
== END 2022-04-08 15:30 | disposition home or self-care (01) | DRG 100 ==
LOC: ER 13:03 → EDBD 13:03 → TELE 19:48 → TELE-WESTW 23:17
PROVIDERS: ADMIT Nurse Practitioner Family; ATTEND Internal Medicine
PROC: 5A1D70Z Performance of Urinary Filtration, Intermittent, Less than 6 Hours Per Day (ICD-10-PCS; principal; 2022-04-07)
DX: G40.409 Other generalized epilepsy and epileptic syndromes, not intractable, without status epilepticus (principal); I50.41 Acute combined systolic (congestive) and diastolic (congestive) heart failure; N18.6 End stage renal disease; I47.21 Torsades de pointes; J98.11 Atelectasis; I13.2 Hypertensive heart and chronic kidney disease with heart failure and with stage 5 chronic kidney disease, or end stage renal disease; E44.0 Moderate protein-calorie malnutrition; I69.354 Hemiplegia and hemiparesis following cerebral infarction affecting left non-dominant side; I16.0 Hypertensive urgency; D63.8 Anemia in other chronic diseases classified elsewhere; E11.22 Type 2 diabetes mellitus with diabetic chronic kidney disease; E03.9 Hypothyroidism, unspecified; E11.649 Type 2 diabetes mellitus with hypoglycemia without coma; E78.5 Hyperlipidemia, unspecified; E87.5 Hyperkalemia; F32.A Depression, unspecified; M10.9 Gout, unspecified; Z79.82 Long term (current) use of aspirin; Z79.899 Other long term (current) drug therapy; Z83.3 Family history of diabetes mellitus; Z90.49 Acquired absence of other specified parts of digestive tract; Z99.2 Dependence on renal dialysis; Z68.24 Body mass index [BMI] 24.0-24.9, adult; Z79.84 Long term (current) use of oral hypoglycemic drugs
CPT/HCPCS: 36415; 70450; 71045; 80048; 80053; 80074; 80185; 82962; 83036; 83540; 83550; 84443; 84484; 85025; 87426; 90935; 93005; 93306; 95819; 96365; 96375; G0378; J1815

== ENCOUNTER 2024-05-28 13:40 | Inpatient (IN) | payer MEDICARE, MEDICAID ==
[~2024-05-28] VITALS: Ht 182.9 cm; Wt 71.6 kg
[~2024-05-28 13:40] MED LIST changes: -AMLO-496 PO; +AMLO1TAB23 PO; +ASPI-498 PO; +FER325T PO; -FERR1TAB17 PO; +GABA-1308 PO; -HYDR50TA15 PO; +HYDR50TA47 PO; -LEVO25TA6 PO; +PHEN1CAP38 PO; +POM PO; -TAMS0.4C36 PO
[2024-05-28 14:49] LABS: Basophils # (auto) 0 10 ^3/uL (0-0.2); Lymphocytes # (auto) 0.6 10 ^3/uL (0.4-5.4); Nucleated Red Blood Cells % 0.1 %; Platelet Count (auto) 156 10^3/uL (140-450); White Blood Cell 3.3 10^3/uL (4.4-10.8)
[2024-05-28 14:51] LABS: Basophils % (auto) 0.8 % (0.0-2.0); Eosinophils # (auto) 0.2 10 ^3/uL (0-0.8); Eosinophils % (auto) 6.9 % (0.0-7.0); Hematocrit 20.7 % (41.0-53.0); Lymphocytes % (auto) 19.2 % (10.0-50.0); Mean Corpuscular Hemoglobin 33.4 pg (28.0-32.0); Mean Corpuscular Volume 98.4 fL (80.0-100.0); Monocytes # (auto) 0.2 10 ^3/uL (0-1.3); Monocytes % (auto) 7.5 % (0.0-12.0); Neutrophils # (auto) 2.2 10 ^3/uL (1.6-8.6); Neutrophils % (auto) 65.6 % (37.0-80.0); Red Blood Cells 2.11 10^6/uL (4.5-5.90); Red Cell Distribution Width 13.2 % (11.8-14.3)
[2024-05-28 14:58] LABS: Chloride 106 mmol/L (98-107); Potassium 3.9 mmol/L (3.5-5.1); Sodium 144 mmol/L (136-145)
[2024-05-28 14:59] LABS: Anion Gap 7 (5-15); Carbon Dioxide 31 mmol/L (20-31)
--- NOTE | 2024-05-28 15:01 | ED.PDOC ---
History of Present Illness HPI Comments 59 year old male brought in by presents to the ED with chief complaint of abnormal labs. reports patient was at dialysis today when they were informed that the patient's hemoglobin was noted to be 6.6 and needed to come to the ED for further evaluation. Patient relays that he feels fine at this time. Patient denies any chest pain, weakness, dizziness, N/V/D, bleeding, or SOB. Chief Complaint: Abnormal LAB's Time Seen by MD: 14:56 Primary Care Provider: UNKNOWN Reviewed Notes: Nurses Notes, Medications, Allergies Allergies: Coded Allergies: NO KNOWN ALLERGIES (Unverified , 02/21/19) Home Meds Reported Medications Aspirin (ASPIRIN 81) 81 Mg Tab, 81 MG PO DAILY, TAB 04/06/22 Gabapentin (Gabapentin) 100 Mg Cap, 100 MG PO EOD for 30 Days, MG 04/06/22 Patients Own Medication (PATIENTS OWN MEDICATION) ., 0.05 MCG PO DAILY PTS OWN MED-OBTAIN FROM PT AND SEND TO RX DRUG: FREQ: RX# EXP: DATE DISP: TECH: [facility]: 04/06/22 Ferrous Sulfate (FERROUS SULFATE) 325 Mg Tb, 1 TAB PO DAILY, #30 TAB 3 Refills 04/06/22 Phenytoin Sodium (DILANTIN CAPSULE) 100 Mg Cp, 300 MG PO DAILY, CAP 04/06/22 Atorvastatin Calcium (ATORVASTATIN CALCIUM) 20 Mg Tab, 1 TAB PO DAILY, #90 TAB 1 Refill 02/22/19 Hydralazine Hcl (Hydralazine Hcl) 50 Mg Tab, 100 MG PO BID, TAB 02/22/19 Carvedilol (Carvedilol) 6.25 Mg Tab, 2 TAB PO BID, #60 TAB 5 Refills 02/22/19 Paroxetine (PAXIL TABLET) 20 Mg Tb, 1 TAB PO DAILY, #90 TAB 3 Refills 02/22/19 Amlodipine Besylate (Amlodipine Besylate) 10 Mg Tab, 1 TAB PO DAILY, #90 TAB 3 Refills 02/22/19 Information Source: Patient, Spouse Mode of Arrival: Wheelchair Severity: Moderate Timing: Hours Duration: Since onset Prehospital treatment: None Past Medical History PAST MEDICAL HISTORY: CVA, DM, ESRD, Gout, High Lipids, HTN Surgical History: Appendectomy Family History Family History: Reviewed,noncontributory to illness, No family hx of Cancer Social History Smoker: Non-Smoker Alcohol: Denies ETOH Use Drugs: Denies Drug Use Lives In: Home Constitutional: denies: chills, diaphoresis, fatigue, fever, malaise, sweats, weakness, others EENTM: denies: blurred vision, double vision, ear bleeding, ear discharge, ear drainage, ear pain, ear ringing, eye pain, eye redness, hearing loss, mouth pain, mouth swelling, nasal discharge, nose bleeding, nose congestion, nose pa in, photophobia, tearing, throat pain, throat swelling, voice changes, others Respiratory: denies: cough, hemoptysis, orthopnea, SOB at rest, shortness of breath, SOB with excertion, stridor, wheezing, others Cardiovascular: denies: chest pain, dizzy spells, diaphoresis, Dyspnea on exertion, edema, irregular heart beat, left arm pain, lightheadedness, palpitations, PND, syncope, others Gastrointestinal: denies: abdomen distended, abdominal pain, blood streaked bowels, constipated, diarrhea, dysphagia, difficulty swallowing, hematemesis, melena, nausea, poor appetite, poor fluid intake, rectal bleeding, rectal pain, vomiting, others Genitourinary: denies: burning, dysuria, flank pain, frequency, hematuria, incontinence, penile discharge, penile sore, pain, testicle pain, testicle swelling, urgency, others Neurological: denies: dizziness, fainting, headache, left sided numbness, left sided weakness, numbness, paresthesia, pre-existing deficit, right sided numbness, right sided weakness, seizure, speech problems, tingling, tremors, weakness, others Musculoskeletal: denies: back pain, gout, joint pain, joint swelling, muscle pain, muscle stiffness, neck pain, others Integumetry: denies: bruises, change in color, change in hair/nails, dryness, laceration, lesions, lumps, rash, wounds, others Allergic/Immunocompromised: denies: Difficulty Healing, Frequent Infections, Hives, Itching, others Hematologic/Lymphatic: denies: anemia, blood clots, easy bleeding, easy bruising, swollen glands, others Endocrine: denies: excessive hunger, excessive sweating, excessive thirst, excessive urination, flushing, intolerance to cold, intolerance to heat, unexplained weight gain, unexplained weight loss, others Psychiatric: denies: anxiety, bipolar disorder, depression, hopeless, panic disorder, schizophrenia, sleepless, suicidal, others All Other Systems: Reviewed and Negative Physical Exam General Appearance: Moderate Distress, Normal HEENT: Normal ENT Inspection, PERRL/EOMI Neck: Full Range of Motion, Non-Tender, Normal, Normal Inspection Respiratory: Chest Non-Tender, Lungs Clear, No Accessory Muscle Use, No Respiratory Distress, Normal Breath Sounds Cardiovascular: No Edema, No JVD, No Murmur, No Gallop, Normal Peripheral Pulses, Regular Rate/Rhythm Breast Exam: Deferred Gastrointestinal: No Organomegaly, Non Tender, No Pulsatile Mass, Normal Bowel Sounds, Soft Genitalia: Deferred Pelvic: Deferred Rectal: Deferred Extremities: Decreased range of motion, No calf tenderness, Normal capillary refill Musculoskeletal : Apperance: Normal Neurologic: Alert Cerebellar Function: NOT DONE Reflexes: NOT DONE Skin: Dry, Normal Color, Warm Peripheral Pulses: 3+ Radial (R), 3+ Radial (L) Lymphatic: No Adenopathy Was a procedure done? Was a procedure done?: No Differential Dx Considerations may include: Anemia X-Ray, Labs, Meds, VS Vital Signs Date Time Temp Pulse Resp B/P (MAP) Pulse Ox O2 Delivery O2 Flow Rate FiO2 05/28/24 14:11 97.9 63 18 153/64 (93) 97 Lab Test 05/28/24 14:30 Range/Units White Blood Count 3.3 L 4.4-10.8 10^3/uL Red Blood Count 2.11 L 4.5-5.90 10^6/uL Hemoglobin 7.0 *L 13.5-17.5 g/dL Hematocrit 20.7 L 41.0-53.0 % Mean Corpuscular Volume 98.4 80.0-100.0 fL Mean Corpuscular Hemoglobin 33.4 H 28.0-32.0 pg Mean Corpuscular Hemoglobin Concent 34.0 32.0-36.0 g/dL Red Cell Distribution Width 13.2 11.8-14.3 % Platelet Count 156 140-450 10^3/uL Mean Platelet Volume 6.8 L 6.9-10.8 fL Neutrophils (%) (Auto) 65.6 37.0-80.0 % Lymphocytes (%) (Auto) 19.2 10.0-50.0 % Monocytes (%) (Auto) 7.5 0.0-12.0 % Eosinophils (%) (Auto) 6.9 0.0-7.0 % Basophils (%) (Auto) 0.8 0.0-2.0 % Neutrophils # (Auto) 2.2 1.6-8.6 10 ^3/uL Lymphocytes # (Auto) 0.6 0.4-5.4 10 ^3/uL Monocytes # (Auto) 0.2 0-1.3 10 ^3/uL Eosinophils # (Auto) 0.2 0-0.8 10 ^3/uL Basophils # (Auto) 0 0-0.2 10 ^3/uL Nucleated Red Blood Cells 0.1 % Sodium Level 144 136-145 mmol/L Potassium Level 3.9 3.5-5.1 mmol/L Chloride Level 106 98-107 mmol/L Carbon Dioxide Level 31 20-31 mmol/L Anion Gap 7 5-15 Blood Urea Nitrogen 23 9-23 mg/dL Creatinine 2.61 H 0.700-1.30 mg/dL Glomerular Filtration Rate Calc 27 >90 mL/min BUN/Creatinine Ratio 8.8 L 10.0-20.0 Serum Glucose 126 H 74-106 mg/dL Calcium Level 8.3 L 8.7-10.4 mg/dL Troponin I High Sensitivity 19 </=54 ng/L Patient alert. Sent from dialysis center for anemia. Hemoglobin 7. Vitals stable. Speech not affected from stroke. Extremities accept with the right upper extremity affected. Blood transfusion. Cardiac marker within normal limits. Reviewed his previous visit. Blood pressure slightly elevated. Explained to the family. Continue cardiac monitoring. Time of 1ST Reevaluation: 15:56 Reevaluation 1ST: Unchanged Patient Education/Counseling: Diagnosis, Treatment Family Education/Counseling: Diagnosis, Treatment Departure 1 Departure Time of Disposition: 17:54 Impression: Primary Impression: Severe anemia Additional Impressions: Acute CVA (cerebrovascular accident) Severe malnutrition Disposition: ADMITTED INPATIENT Admit to: Med Surg Condition: Guarded Critical Care Note Critical Care Time?: Yes (45 min-critical care time only) Stability Stability form required: No Heart Score Heart Score: Heart Score Response (Comments) Value History N/A 0 EKG N/A 0 Age N/A 0 Risk Factors N/A 0 Troponin N/A 0 Total 0 I personally scribed for SABRINA PERES MD ([email or web address]) on 05/28/24 at 15:01. Electronically submitted by Francisco J Mooney ([email or web address]). SABRINA PERES MD May 28, 2024 15:01
[2024-05-28 15:04] LABS: BUN/Creatinine Ratio 8.8 (10.0-20.0); Blood Urea Nitrogen 23 mg/dL (9-23); Calcium 8.3 mg/dL (8.7-10.4); Glucose 126 mg/dL (74-106)
[2024-05-28] MEDS ORDERED: DEXTROSE (50%) 50ML SYRG IV PRN (16:30)
[2024-05-28] MEDS ORDERED: TEMAZEPAM 15 MG CAP PO PRN (16:30)
[2024-05-28] MEDS ORDERED: ACETAMINOPHEN 325 MG TAB PO PRN (16:30)
[2024-05-28] MEDS ORDERED: DOCUSATE SOD 100 MG CAP PO PRN (16:30)
[2024-05-28] MEDS ORDERED: MAALOX PLUS or MAALOX 30 ML PO PRN (16:30)
[2024-05-28] MEDS ORDERED: HYDROcodone-ACET 5/325MG TAB PO PRN (16:30)
[2024-05-28] MEDS ORDERED: MORPHINE SULFATE INJ 2 MG/ml SYRG IV PRN (16:30)
[2024-05-28] MEDS ORDERED: ONDANSETRON HCL 4 MG/2 ML VIAL IV PRN (16:30)
--- NOTE | 2024-05-28 17:00 | DVHHP2 ---
History of Present Illness Reason for Visit: Abnormal lab History of Present Illness 59-year-old male with a past medical history of diabetes, hypertension, ESRD, hyperlipidemia, and CVA patient came to the ED stating that he was notified that his hemoglobin levels are way too low when he was evaluated in dialysis the previous day patient was stated to have a hemoglobin of 6.6 and was recommended to go to the ED for evaluation patient states that he feels fine has no other complaints no shortness a breath no chest pain but is noted to have ESRD and a low-level hemoglobin plan as of now is to admit the patient as per EP recommendations Heme/Onc: Iron deficiency Anemia Renal/: Chronic renal failure Review of Systems Constitutional: Yes: Weakness; No: Fever, Chills, Sweats, Malaise, Other Eyes: No: Pain, Vision change, Conjunctivae inflammation, Eyelid inflammation, Other, Redness ENT: No: Ear pain, Ear discharge, Nose pain, Nose discharge, Nose congestion, Mouth pain, Mouth swelling, Throat pain, Throat swelling, Other Respiratory: No: Cough, Dry, Shortness of breath, SOB with excertion, Wheezing, Hemoptysis, Pleuritic Pain, Sputum, Wheezing, Other Cardiovascular: No: Chest Pain, Palpitations, Orthopnea, Paroxysmal Noc. Dyspnea, Edema, Lt Headedness, Other Gastrointestinal: No: Nausea, Vomiting, Abdominal Pain, Diarrhea, Constipation, Melena, Hematochezia, Other Genitourinary: No Dysuria, No Frequency, No Incontinence, No Hematuria, No Retention, No Other Musculoskeletal: No: other, neck pain, shoulder pain, arm pain, back pain, hand pain, leg pain, foot pain Skin: No: Rash, Lesions, Jaundice, Bruising, Other Neurological: No: Weakness, Numbness, Incoordination, Change in speech, Confusion, Seizures, Other Allergies: Coded Allergies: NO KNOWN ALLERGIES (Unverified , 02/21/19) Exam Vital Signs Vital Signs Date Time Temp Pulse Resp B/P (MAP) Pulse Ox O2 Delivery O2 Flow Rate FiO2 05/28/24 14:11 97.9 63 18 153/64 (93) 97 General Appearance: Alert, Oriented X3, Cooperative HEENT: Atraumatic, PERRLA, EOMI Respiratory: Clear to auscultation, Normal air movement Cardiovascular: Regular rate, Normal S1, Normal S2 Abdominal: Normal bowel sounds, Soft, No tenderness Extremities: No clubbing, No cyanosis, No edema Skin: No rashes, No breakdown Neuro: Normal gait, Normal speech Psych/Mental Status: Mood NL Labs/Xrays Labs Test 05/28/24 14:30 Range/Units White Blood Count 3.3 L 4.4-10.8 10^3/uL Red Blood Count 2.11 L 4.5-5.90 10^6/uL Hemoglobin 7.0 *L 13.5-17.5 g/dL Hematocrit 20.7 L 41.0-53.0 % Mean Corpuscular Volume 98.4 80.0-100.0 fL Mean Corpuscular Hemoglobin 33.4 H 28.0-32.0 pg Mean Corpuscular Hemoglobin Concent 34.0 32.0-36.0 g/dL Red Cell Distribution Width 13.2 11.8-14.3 % Platelet Count 156 140-450 10^3/uL Mean Platelet Volume 6.8 L 6.9-10.8 fL Neutrophils (%) (Auto) 65.6 37.0-80.0 % Lymphocytes (%) (Auto) 19.2 10.0-50.0 % Monocytes (%) (Auto) 7.5 0.0-12.0 % Eosinophils (%) (Auto) 6.9 0.0-7.0 % Basophils (%) (Auto) 0.8 0.0-2.0 % Neutrophils # (Auto) 2.2 1.6-8.6 10 ^3/uL Lymphocytes # (Auto) 0.6 0.4-5.4 10 ^3/uL Monocytes # (Auto) 0.2 0-1.3 10 ^3/uL Eosinophils # (Auto) 0.2 0-0.8 10 ^3/uL Basophils # (Auto) 0 0-0.2 10 ^3/uL Nucleated Red Blood Cells 0.1 % Sodium Level 144 136-145 mmol/L Potassium Level 3.9 3.5-5.1 mmol/L Chloride Level 106 98-107 mmol/L Carbon Dioxide Level 31 20-31 mmol/L Anion Gap 7 5-15 Blood Urea Nitrogen 23 9-23 mg/dL Creatinine 2.61 H 0.700-1.30 mg/dL Glomerular Filtration Rate Calc 27 >90 mL/min BUN/Creatinine Ratio 8.8 L 10.0-20.0 Serum Glucose 126 H 74-106 mg/dL Calcium Level 8.3 L 8.7-10.4 mg/dL Troponin I High Sensitivity 19 </=54 ng/L Assessment/Plan Assessment/Plan [facility] Anemia suspected due chronic kidney failure IV hydration Type and screen 1 unit packed RBCs History of ESRD Renal consult Plan discussed with: Patient My Orders Orders - SIMON LARIOS MD Procedure Category Date Status Time Glucose Blood PHA 05/28/24 Logged (Accu-Chek Comfort 20:00 Insulin R (Human) PHA 05/28/24 Logged (Insulin R) 20:00 Dextrose 50% Syringe PHA 05/28/24 Logged 16:30 Admit ADMIT 05/28/24 Transmitted 16:29 Code Status CODE 05/28/24 Transmitted 16:29 Vital Signs [facility] 05/28/24 In Process 16:29 Review Orders With JAMILA 05/28/24 In Process Adm.Md 16:29 Regular Diet DIET 05/28/24 Transmitted Dinner Alum & Mag PHA 05/28/24 Logged Hydrox-Simethicone 16:30 Docusate Sodium [facility] 05/28/24 Logged Capsule (Colace 16:30 Acetaminophen Tablet PHA 05/28/24 Logged (Tylenol Tablet) 16:30 Temazepam (Restoril) PHA 05/28/24 Logged 16:30 Notify Md Of Changes [facility] 05/28/24 In Process From Base 16:29 Advance Directive JAMILA 05/28/24 In Process 16:29 Basic Metabolic Panel LAB 05/29/24 Verified 04:00 Urinalysis LAB 05/28/24 Logged 16:29 Complete Blood Count LAB 05/29/24 Verified 04:00 Patient Condition ORDERS 05/28/24 Transmitted 16:29 Allergies JAMILA 05/28/24 In Process 16:29 Hydrocodone-Acet PHA 05/28/24 Logged 5/325mg Tab ([place] 16:30 Ondansetron Hcl PHA 05/28/24 Logged (Zofran) 16:30 Morphine Sulfate PHA 05/28/24 Logged Injection 16:30 Notify Of Changes [facility] 05/28/24 In Process From Base 16:29 Oxygen By Nasal RT 05/28/24 Transmitted Cannula 16:29 Packedcell-Noactive BBK 05/28/24 Logged Bleeding 16:29 Type And Screen BBK 05/28/24 Logged 16:29 Atorvastatin (Lipitor) PHA 05/29/24 Logged 10:00 Ferrous Sulfate Tablet PHA 05/29/24 Logged 10:00 Gabapentin Capsule PHA 05/30/24 Logged (Neurontin Capsule) 10:00 Paroxetine Tablet PHA 05/29/24 Logged (Paxil Tablet) 10:00 Phenytoin Capsule PHA 05/29/24 Logged (Dilantin Capsule) 10:00 (Nf) Amlodipine PHA 05/29/24 Logged Besylate 10:00 (Nf) Carvedilol PHA 05/28/24 Logged 22:00 (Nf) Hydralazine Hcl PHA 05/28/24 Logged 22:00 *[facility] CONS 05/28/24 Transmitted -[place] 16:41 Problem List: (1) Anemia due to chronic kidney disease (2) End stage chronic kidney disease (3) Severe malnutrition Date of Service: May 28, 2024 Billing Provider: SIMON LAROIS MD Common Visit Codes: [id number] INP/OBS CARE (HIGH) SIMON LARIOS MD May 28, 2024 17:00
[2024-05-28 19:05] VITALS: PULSE 67; RESP 12; O2SAT 92
[2024-05-28 19:30] VITALS: PULSE 67; RESP 12; O2SAT 92
[2024-05-28] MEDS: ACCU-CHEK COMFORT CURVE STRIP VI SCH (20:00)
[2024-05-28] MEDS: InsuLIN REG 1unit/0.01ml Soln (100units/ml) SC SCH (20:00)
[2024-05-28] MEDS: levETIRAcetam 500 MG TAB PO SCH (20:35)
[2024-05-28] MEDS: hydrALAZINE HCL 25 MG TAB PO SCH (20:35)
[2024-05-28] MEDS: CARVEDILOL 12.5 MG TAB PO SCH (20:36)
[2024-05-28 23:30] VITALS: BP 195/68; PULSE 67; RESP 10; TEMP 97.6
[2024-05-28 23:45] VITALS: BP 180/71; PULSE 63; RESP 10; TEMP 97.6
[2024-05-29] VITALS (8 sets, daily range): BP systolic 156–179; BP diastolic 55–69; PULSE 62–65; RESP 12–20; TEMP 97.9–98.7; O2SAT 95–100
[2024-05-29] MEDS ORDERED: cloNIDine HCL 0.1 MG TAB PO PRN (00:30)
[2024-05-29] MEDS: TRESIBA SC SCH (08:30)
[2024-05-29] MEDS: FERROUS SULFATE 325mg EC TAB PO SCH (08:53)
[2024-05-29] MEDS: amLODIPine BESYLATE 5 MG TAB PO SCH (08:54)
[2024-05-29] MEDS: ATORVASTATIN 20 MG TAB PO SCH (08:54)
[2024-05-29] MEDS: PARoxetine 20 MG TAB PO SCH (08:54)
[2024-05-29 09:08] LABS: Basophils # (auto) 0 10 ^3/uL (0-0.2); Eosinophils # (auto) 0.2 10 ^3/uL (0-0.8); Lymphocytes # (auto) 0.7 10 ^3/uL (0.4-5.4); Monocytes # (auto) 0.3 10 ^3/uL (0-1.3); Neutrophils # (auto) 2.1 10 ^3/uL (1.6-8.6); Nucleated Red Blood Cells % 0.2 %
[2024-05-29 09:11] LABS: Basophils % (auto) 0.9 % (0.0-2.0); Eosinophils % (auto) 5.9 % (0.0-7.0); Hematocrit 23.7 % (41.0-53.0); Lymphocytes % (auto) 21.7 % (10.0-50.0); Mean Corpuscular Hemoglobin 32.4 pg (28.0-32.0); Mean Corpuscular Hgb Conc. 33.8 g/dL (32.0-36.0); Monocytes % (auto) 8.2 % (0.0-12.0); Neutrophils % (auto) 63.3 % (37.0-80.0); Platelet Count (auto) 150 10^3/uL (140-450); Red Blood Cells 2.47 10^6/uL (4.5-5.90); Red Cell Distribution Width 15.5 % (11.8-14.3); White Blood Cell 3.4 10^3/uL (4.4-10.8)
[2024-05-29 09:19] LABS: Chloride 107 mmol/L (98-107); Potassium 4.3 mmol/L (3.5-5.1); Sodium 144 mmol/L (136-145)
[2024-05-29 09:20] LABS: Anion Gap 5 (5-15)
[2024-05-29 09:25] LABS: BUN/Creatinine Ratio 10.2 (10.0-20.0); Glucose 86 mg/dL (74-106)
[2024-05-29 09:37] LABS: Blood Urea Nitrogen 38 mg/dL (9-23); Calcium 8.2 mg/dL (8.7-10.4); Carbon Dioxide 32 mmol/L (20-31)
[2024-05-29] MEDS ORDERED: PHENYTOIN SODIUM 100 MG CAP PO SCH (10:00)
--- NOTE | 2024-05-29 13:15 | DVHPN2 ---
Reviewed: Care Plan, H&P, Labs, Medications, Previous Orders, Radiology Changes from previous H/P or p: No Changes Eyes: No Pain, No Vision change, No Conjunctivae inflammation, No Eyelid inflammation, No Other, No Redness ENT: No Ear pain, No Ear discharge, No Nose pain, No Nose discharge, No Nose congestion, No Mouth pain, No Mouth swelling, No Throat pain, No Throat swelling, No Other Cardiovascular: No Chest Pain, No Palpitations, No Orthopnea, No Paroxysmal Noc. Dyspnea, No Edema, No Lt Headedness, No Other Respiratory: No Cough, No Dry, No Shortness of breath, No SOB with excertion, No Wheezing, No Hemoptysis, No Pleuritic Pain, No Sputum, No Other Gastrointestinal: No Nausea, No Vomiting, No Abdominal Pain, No Diarrhea, No Constipation, No Melena, No Hematochezia, No Other Genitourinary: No Dysuria, No Frequency, No Incontinence, No Hematuria, No Retention, No Other Musculoskeletal: No other, No neck pain, No shoulder pain, No arm pain, No back pain, No hand pain, No leg pain, No foot pain Skin: No Rash, No Lesions, No Jaundice, No Bruising, No Other Objective Vitals Vital Signs Date Time Temp Pulse Resp B/P (MAP) Pulse Ox O2 Delivery O2 Flow Rate FiO2 05/29/24 09:00 98.1 65 18 173/67 (102) 95 98.1 05/28/24 19:30 Room Air* 0 21 Intake/Output Intake and Output 05/29/24 07:00 Intake Total 720 ml Output Total 0 ml Balance 720 ml Intake Oral 120 ml Blood Product 600 ml Output Urine Total 0 ml Medications Current Medications Medications Dose Ordered Sig/Tomasa Route Start Time Stop Time Status Last Admin Dose Admin Diagnostic Test (Pha) 1 strip IQ4HR 05/28/24 20:00 05/29/24 08:39 1 STRIP Insulin Human Regular IQ4HR SC 05/28/24 20:00 Dextrose 50 ml UD PRN IV 05/28/24 16:30 Al Hydrox/Mg Hydrox/Simethicone 30 ml Q6HP PRN PO 05/28/24 16:30 Docusate Sodium 100 mg BIDPRN PRN PO 05/28/24 16:30 Acetaminophen 650 mg Q6HP PRN PO 05/28/24 16:30 Temazepam 15 mg QHSP PRN PO 05/28/24 16:30 Acetaminophen/ Hydrocodone Bitart 1 tab Q4HP PRN PO 05/28/24 16:30 Ondansetron HCl 4 mg Q4HP PRN IV 05/28/24 16:30 Morphine Sulfate 2 mg Q4HPRN PRN IV 05/28/24 16:30 Atorvastatin Calcium 20 mg DAILY PO 05/29/24 10:00 05/29/24 08:54 20 MG Ferrous Sulfate 325 mg DAILY PO 05/29/24 10:00 05/29/24 08:53 325 MG Gabapentin 100 mg EOD PO 05/30/24 10:00 Paroxetine HCl 20 mg DAILY PO 05/29/24 10:00 05/29/24 08:54 20 MG Phenytoin Sodium 200 mg DAILY PO 05/29/24 10:00 Hold Amlodipine Besylate 10 mg DAILY PO 05/29/24 10:00 05/29/24 08:54 10 MG Carvedilol 12.5 mg BID PO 05/28/24 22:00 05/29/24 08:43 12.5 MG Hydralazine HCl 100 mg BID PO 05/28/24 22:00 05/29/24 08:53 100 MG Levetiracetam 250 mg Q12H PO 05/28/24 20:00 05/29/24 08:35 250 MG Patient Own Medication 12 unit DAILY SC 05/29/24 08:30 Clonidine HCl 0.2 mg Q6HP PRN PO 05/29/24 00:30 Laboratory Results Laboratory Tests 05/29/24 08:37 Chemistry Test 05/28/24 14:30 05/29/24 08:37 Calcium Level 8.3 mg/dL (8.7-10.4) L 8.2 mg/dL (8.7-10.4) L Labs and/or images reviewed: Labs reviewed by me, Image(s) reviewed by me Assessment/Plan Assessment/Plan Severe symptomatic anemia hemoglobin 7.0, improved to 8.0 after 1 unit RBC transfusion Diabetes Hypertension ESRD on hemodialysis , consult for Dr. Sebastien Horne Hypercholesterolemia History of CVA History of seizures Severe malnutrition Condition guarded Time spent 65 minutes Advanced care planning time 20 minutes Patient is full code Plan discussed with: Patient Date of Service: May 29, 2024 Billing Provider: EULALIA LAND MD Common Visit Codes: [id number] CARE 30-74 MIN EULALIA LAND MD May 29, 2024 13:15
[2024-05-29] MEDS: PHENYTOIN SODIUM 100 MG CAP PO SCH (15:00)
--- NOTE | 2024-05-29 16:05 | DVHINCON2 ---
Date of service: May 29, [address] Kaiser Reason for Consultation ESRD History of Present Illness Mr. 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 He received 1 unit packed RBCs currently seen in his room awake alert conversant, patient's is at the bedside. There is no history of enteral blood loss. Past Medical History ESRD Diabetes Anemia Hypertension Allergies: Coded Allergies: NO KNOWN ALLERGIES (Unverified , 02/21/19) Home Meds Reported Medications Aspirin (ASPIRIN 81) 81 Mg Tab, 81 MG PO DAILY, TAB 04/06/22 Gabapentin (Gabapentin) 100 Mg Cap, 100 MG PO EOD for 30 Days, MG 04/06/22 Patients Own Medication (PATIENTS OWN MEDICATION) ., 0.05 MCG PO DAILY PTS OWN MED-OBTAIN FROM PT AND SEND TO RX DRUG: FREQ: RX# EXP: DATE DISP: TECH: RPH: 04/06/22 Ferrous Sulfate (FERROUS SULFATE) 325 Mg Tb, 1 TAB PO DAILY, #30 TAB 3 Refills 04/06/22 Phenytoin Sodium (DILANTIN CAPSULE) 100 Mg Cp, 300 MG PO DAILY, CAP 04/06/22 Atorvastatin Calcium (ATORVASTATIN CALCIUM) 20 Mg Tab, 1 TAB PO DAILY, #90 TAB 1 Refill 02/22/19 Hydralazine Hcl (Hydralazine Hcl) 50 Mg Tab, 100 MG PO BID, TAB 02/22/19 Carvedilol (Carvedilol) 6.25 Mg Tab, 2 TAB PO BID, #60 TAB 5 Refills 02/22/19 Paroxetine (PAXIL TABLET) 20 Mg Tb, 1 TAB PO DAILY, #90 TAB 3 Refills 02/22/19 Amlodipine Besylate (Amlodipine Besylate) 10 Mg Tab, 1 TAB PO DAILY, #90 TAB 3 Refills 02/22/19 Current Medications Current Medications Medications (Trade) Dose Ordered Sig/Tomasa Route PRN Reason Start Time Stop Time Status Last Admin Diagnostic Test (Pha) (Accu-Chek Comfort Curve T) 1 strip IQ4HR 05/28/24 20:00 05/29/24 08:39 Insulin Human Regular (InsuLIN R) IQ4HR SC 05/28/24 20:00 Dextrose 50 ml UD PRN IV Blood Sugar LESS THAN 60 05/28/24 16:30 Al Hydrox/Mg Hydrox/Simethicone (Maalox Plus) 30 ml Q6HP PRN PO FOR STOMACH DISTRESS 05/28/24 16:30 Docusate Sodium (Colace Capsule) 100 mg BIDPRN PRN PO FOR CONSTIPATION 05/28/24 16:30 Acetaminophen (Tylenol Tablet) 650 mg Q6HP PRN PO PAIN SCALE 1-3 OR TEMP>100.4 05/28/24 16:30 Temazepam (Restoril) 15 mg QHSP PRN PO FOR INSOMNIA 05/28/24 16:30 Acetaminophen/ Hydrocodone Bitart ([place] 5/325MG Tab) 1 tab Q4HP PRN PO MODERATE PAIN (4-6 PAIN SCALE) 05/28/24 16:30 Ondansetron HCl (Zofran) 4 mg Q4HP PRN IV NAUSEA / VOMITING 05/28/24 16:30 Morphine Sulfate 2 mg Q4HPRN PRN IV SEVERE PAIN (7-10 PAIN SCALE) 05/28/24 16:30 Atorvastatin Calcium (Lipitor) 20 mg DAILY PO 05/29/24 10:00 05/29/24 08:54 Ferrous Sulfate 325 mg DAILY PO 05/29/24 10:00 05/29/24 08:53 Gabapentin (Neurontin Capsule) 100 mg EOD PO 05/30/24 10:00 Paroxetine HCl (Paxil Tablet) 20 mg DAILY PO 05/29/24 10:00 05/29/24 08:54 Phenytoin Sodium (Dilantin Capsule) 200 mg DAILY PO 05/29/24 10:00 05/29/24 14:44 DC Amlodipine Besylate (Norvasc Tablet) 10 mg DAILY PO 05/29/24 10:00 05/29/24 08:54 Carvedilol (Coreg Tablet) 12.5 mg BID PO 05/28/24 22:00 05/29/24 08:43 Hydralazine HCl (Apresoline Tablet) 100 mg BID PO 05/28/24 22:00 05/29/24 08:53 Levetiracetam (Keppra Tablet) 250 mg Q12H PO 05/28/24 20:00 05/29/24 08:35 Patient Own Medication 12 unit DAILY SC 05/29/24 08:30 Clonidine HCl (Catapres Tablet) 0.2 mg Q6HP PRN PO SBP>160 05/29/24 00:30 Phenytoin Sodium (Dilantin Capsule) 200 mg DAILY@1400 PO 05/29/24 15:00 Family History: Diabetes mellitus G8 MOTHER G8 SISTER Review of Systems Denies gross hematuria, dysuria, tea or Coca-Cola colored urine Denies excessive use of recent NSAIDs, foamy urine, recent IV contrast studies Denies recent chest pain, dyspnea, PND, orthopnea Denies fever, chills, nausea, vomiting, diarrhea Denies unintentional weight loss, night sweats Denies focal weakness, numbness H&P Exam Vital Signs/I&O Vital Sign Date Time Temp Pulse Resp B/P (MAP) Pulse Ox O2 Delivery O2 Flow Rate FiO2 05/29/24 09:00 98.1 65 18 173/67 (102) 95 98.1 05/28/24 19:30 Room Air* 0 21 Intake and Output 05/28/24 05/29/24 19:00 07:00 Intake Total 720 ml Output Total 0 ml Balance 720 ml Intake Oral 120 ml Blood Product 600 ml Output Urine Total 0 ml Physical Exam Gen: nad, cachectic heent: nc/at, mmm lungs: cta anteriorly cvs: no rub abd: soft, bowel sounds audible ext: no edema skin: no rash neuro: alert and oriented Labs/Diagnostic Data Labs/Diagnostic Data Laboratory Tests Test 05/29/24 12:11 05/29/24 08:38 05/29/24 08:37 05/29/24 08:36 Range/Units POC Glucose 234 H 92 85 70-106 mg/dl White Blood Count 3.4 L 4.4-10.8 10^3/uL Red Blood Count 2.47 L 4.5-5.90 10^6/uL Hemoglobin 8.0 L 13.5-17.5 g/dL Hematocrit 23.7 #L 41.0-53.0 % Mean Corpuscular Volume 96.0 80.0-100.0 fL Mean Corpuscular Hemoglobin 32.4 H 28.0-32.0 pg Mean Corpuscular Hemoglobin Concent 33.8 32.0-36.0 g/dL Red Cell Distribution Width 15.5 H 11.8-14.3 % Platelet Count 150 140-450 10^3/uL Mean Platelet Volume 7.2 6.9-10.8 fL Neutrophils (%) (Auto) 63.3 37.0-80.0 % Lymphocytes (%) (Auto) 21.7 10.0-50.0 % Monocytes (%) (Auto) 8.2 0.0-12.0 % Eosinophils (%) (Auto) 5.9 0.0-7.0 % Basophils (%) (Auto) 0.9 0.0-2.0 % Neutrophils # (Auto) 2.1 1.6-8.6 10 ^3/uL Lymphocytes # (Auto) 0.7 0.4-5.4 10 ^3/uL Monocytes # (Auto) 0.3 0-1.3 10 ^3/uL Eosinophils # (Auto) 0.2 0-0.8 10 ^3/uL Basophils # (Auto) 0 0-0.2 10 ^3/uL Nucleated Red Blood Cells 0.2 % Sodium Level 144 136-145 mmol/L Potassium Level 4.3 3.5-5.1 mmol/L Chloride Level 107 98-107 mmol/L Carbon Dioxide Level 32 H 20-31 mmol/L Anion Gap 5 5-15 Blood Urea Nitrogen 38 #H 9-23 mg/dL Creatinine 3.72 H 0.700-1.30 mg/dL Glomerular Filtration Rate Calc 18 >90 mL/min BUN/Creatinine Ratio 10.2 10.0-20.0 Serum Glucose 86 74-106 mg/dL Calcium Level 8.2 L 8.7-10.4 mg/dL Phenytoin (Dilantin) Level 2.3 L 10-20 ug/mL Test 05/29/24 06:18 05/28/24 23:53 05/28/24 22:11 05/28/24 14:30 Range/Units POC Glucose 117 H 221 H 235 H 70-106 mg/dl White Blood Count 3.3 L 4.4-10.8 10^3/uL Red Blood Count 2.11 L 4.5-5.90 10^6/uL Hemoglobin 7.0 *L 13.5-17.5 g/dL Hematocrit 20.7 L 41.0-53.0 % Mean Corpuscular Volume 98.4 80.0-100.0 fL Mean Corpuscular Hemoglobin 33.4 H 28.0-32.0 pg Mean Corpuscular Hemoglobin Concent 34.0 32.0-36.0 g/dL Red Cell Distribution Width 13.2 11.8-14.3 % Platelet Count 156 140-450 10^3/uL Mean Platelet Volume 6.8 L 6.9-10.8 fL Neutrophils (%) (Auto) 65.6 37.0-80.0 % Lymphocytes (%) (Auto) 19.2 10.0-50.0 % Monocytes (%) (Auto) 7.5 0.0-12.0 % Eosinophils (%) (Auto) 6.9 0.0-7.0 % Basophils (%) (Auto) 0.8 0.0-2.0 % Neutrophils # (Auto) 2.2 1.6-8.6 10 ^3/uL Lymphocytes # (Auto) 0.6 0.4-5.4 10 ^3/uL Monocytes # (Auto) 0.2 0-1.3 10 ^3/uL Eosinophils # (Auto) 0.2 0-0.8 10 ^3/uL Basophils # (Auto) 0 0-0.2 10 ^3/uL Nucleated Red Blood Cells 0.1 % Sodium Level 144 136-145 mmol/L Potassium Level 3.9 3.5-5.1 mmol/L Chloride Level 106 98-107 mmol/L Carbon Dioxide Level 31 20-31 mmol/L Anion Gap 7 5-15 Blood Urea Nitrogen 23 9-23 mg/dL Creatinine 2.61 H 0.700-1.30 mg/dL Glomerular Filtration Rate Calc 27 >90 mL/min BUN/Creatinine Ratio 8.8 L 10.0-20.0 Serum Glucose 126 H 74-106 mg/dL Calcium Level 8.3 L 8.7-10.4 mg/dL Troponin I High Sensitivity 19 </=54 ng/L Assessment IMP: 1) ESRD on dialysis 2) acute on chronic anemia 3) hypertension 4) diabetes 5) dyslipidemia REC: Dialysis May 30 if patient remains in the hospital Ultrafiltration as tolerated. Dialyze without heparin. Clinically stable for discharge tomorrow from Nephrology perspective Plan discussed with: Patient, Spouse HEIDE MIKE MD May 29, 2024 16:05
[2024-05-30] VITALS (10 sets, daily range): BP systolic 138–170; BP diastolic 53–66; PULSE 56–81; RESP 14–18; TEMP 97.1–99; O2SAT 92–100
--- NOTE | 2024-05-30 07:44 | DVHPN2 ---
Reviewed: Care Plan, H&P, Labs, Medications, Previous Orders, Radiology Changes from previous H/P or p: No Changes Eyes: No Pain, No Vision change, No Conjunctivae inflammation, No Eyelid inflammation, No Other, No Redness ENT: No Ear pain, No Ear discharge, No Nose pain, No Nose discharge, No Nose congestion, No Mouth pain, No Mouth swelling, No Throat pain, No Throat swelling, No Other Cardiovascular: No Chest Pain, No Palpitations, No Orthopnea, No Paroxysmal Noc. Dyspnea, No Edema, No Lt Headedness, No Other Respiratory: No Cough, No Dry, No Shortness of breath, No SOB with excertion, No Wheezing, No Hemoptysis, No Pleuritic Pain, No Sputum, No Other Gastrointestinal: No Nausea, No Vomiting, No Abdominal Pain, No Diarrhea, No Constipation, No Melena, No Hematochezia, No Other Genitourinary: No Dysuria, No Frequency, No Incontinence, No Hematuria, No Retention, No Other Musculoskeletal: No other, No neck pain, No shoulder pain, No arm pain, No back pain, No hand pain, No leg pain, No foot pain Skin: No Rash, No Lesions, No Jaundice, No Bruising, No Other Objective Vitals Vital Signs Date Time Temp Pulse Resp B/P (MAP) Pulse Ox O2 Delivery O2 Flow Rate FiO2 05/30/24 05:00 98.1 56 17 153/60 (91) 100 98.1 05/29/24 20:00 Nasal Cannula* 1 24 Intake/Output Intake and Output 05/30/24 07:00 Intake Total 1280 ml Balance 1280 ml Intake Oral 1280 ml # Bowel Movements 1 Medications Current Medications Medications Dose Ordered Sig/Tomasa Route Start Time Stop Time Status Last Admin Dose Admin Diagnostic Test (Pha) 1 strip IQ4HR 05/28/24 20:00 05/30/24 04:14 1 STRIP Insulin Human Regular IQ4HR SC 05/28/24 20:00 Dextrose 50 ml UD PRN IV 05/28/24 16:30 Al Hydrox/Mg Hydrox/Simethicone 30 ml Q6HP PRN PO 05/28/24 16:30 Docusate Sodium 100 mg BIDPRN PRN PO 05/28/24 16:30 Acetaminophen 650 mg Q6HP PRN PO 05/28/24 16:30 Temazepam 15 mg QHSP PRN PO 05/28/24 16:30 Acetaminophen/ Hydrocodone Bitart 1 tab Q4HP PRN PO 05/28/24 16:30 Ondansetron HCl 4 mg Q4HP PRN IV 05/28/24 16:30 Morphine Sulfate 2 mg Q4HPRN PRN IV 05/28/24 16:30 Atorvastatin Calcium 20 mg DAILY PO 05/29/24 10:00 05/29/24 08:54 20 MG Ferrous Sulfate 325 mg DAILY PO 05/29/24 10:00 05/29/24 08:53 325 MG Gabapentin 100 mg EOD PO 05/30/24 10:00 Paroxetine HCl 20 mg DAILY PO 05/29/24 10:00 05/29/24 08:54 20 MG Amlodipine Besylate 10 mg DAILY PO 05/29/24 10:00 05/29/24 08:54 10 MG Carvedilol 12.5 mg BID PO 05/28/24 22:00 05/29/24 21:38 12.5 MG Hydralazine HCl 100 mg BID PO 05/28/24 22:00 05/29/24 21:37 100 MG Levetiracetam 250 mg Q12H PO 05/28/24 20:00 05/29/24 20:15 250 MG Patient Own Medication 12 unit DAILY SC 05/29/24 08:30 05/29/24 16:48 12 UNIT Clonidine HCl 0.2 mg Q6HP PRN PO 05/29/24 00:30 Phenytoin Sodium 200 mg DAILY@1400 PO 05/29/24 15:00 Laboratory Results Laboratory Tests 05/29/24 08:37 Chemistry Test 05/29/24 08:37 Calcium Level 8.2 mg/dL (8.7-10.4) L Labs and/or images reviewed: Labs reviewed by me, Image(s) reviewed by me Assessment/Plan Assessment/Plan Severe symptomatic anemia hemoglobin 7.0, improved to 8.0 after 1 unit RBC transfusion Diabetes Hypertension ESRD on hemodialysis , consult by Dr. Crowe appreciated Hypercholesterolemia History of CVA History of seizures Severe malnutrition Condition guarded Time spent 55 minutes Advanced care planning time 20 minutes Patient is full code [facility] [phone] Plan discussed with: Patient My Orders Orders - EULALIA LAND MD Procedure Category Date Status Time *Dr. Crowe Group CONS 05/29/24 Transmitted -[place] 13:13 *Dr. Crowe Group CONS 05/29/24 Transmitted -[place] 13:52 * Wound Consult CONS 05/29/24 Transmitted Date of Service: May 30, 2024 Billing Provider: EULALIA LAND MD Common Visit Codes: [id number] INP/OBS CARE(HIGH) EULALIA LAND MD May 30, 2024 07:44
--- NOTE | 2024-05-30 07:48 | DVHPN2 ---
Reviewed: Care Plan, H&P, Labs, Medications, Previous Orders, Radiology Changes from previous H/P or p: No Changes Eyes: No Pain, No Vision change, No Conjunctivae inflammation, No Eyelid inflammation, No Other, No Redness ENT: No Ear pain, No Ear discharge, No Nose pain, No Nose discharge, No Nose congestion, No Mouth pain, No Mouth swelling, No Throat pain, No Throat swelling, No Other Cardiovascular: No Chest Pain, No Palpitations, No Orthopnea, No Paroxysmal Noc. Dyspnea, No Edema, No Lt Headedness, No Other Respiratory: No Cough, No Dry, No Shortness of breath, No SOB with excertion, No Wheezing, No Hemoptysis, No Pleuritic Pain, No Sputum, No Other Gastrointestinal: No Nausea, No Vomiting, No Abdominal Pain, No Diarrhea, No Constipation, No Melena, No Hematochezia, No Other Genitourinary: No Dysuria, No Frequency, No Incontinence, No Hematuria, No Retention, No Other Musculoskeletal: No other, No neck pain, No shoulder pain, No arm pain, No back pain, No hand pain, No leg pain, No foot pain Skin: No Rash, No Lesions, No Jaundice, No Bruising, No Other Objective Vitals Vital Signs Date Time Temp Pulse Resp B/P (MAP) Pulse Ox O2 Delivery O2 Flow Rate FiO2 05/30/24 05:00 98.1 56 17 153/60 (91) 100 98.1 05/29/24 20:00 Nasal Cannula* 1 24 Intake/Output Intake and Output 05/30/24 07:00 Intake Total 1280 ml Balance 1280 ml Intake Oral 1280 ml # Bowel Movements 1 Medications Current Medications Medications Dose Ordered Sig/Tomasa Route Start Time Stop Time Status Last Admin Dose Admin Diagnostic Test (Pha) 1 strip IQ4HR 05/28/24 20:00 05/30/24 04:14 1 STRIP Insulin Human Regular IQ4HR SC 05/28/24 20:00 Dextrose 50 ml UD PRN IV 05/28/24 16:30 Al Hydrox/Mg Hydrox/Simethicone 30 ml Q6HP PRN PO 05/28/24 16:30 Docusate Sodium 100 mg BIDPRN PRN PO 05/28/24 16:30 Acetaminophen 650 mg Q6HP PRN PO 05/28/24 16:30 Temazepam 15 mg QHSP PRN PO 05/28/24 16:30 Acetaminophen/ Hydrocodone Bitart 1 tab Q4HP PRN PO 05/28/24 16:30 Ondansetron HCl 4 mg Q4HP PRN IV 05/28/24 16:30 Morphine Sulfate 2 mg Q4HPRN PRN IV 05/28/24 16:30 Atorvastatin Calcium 20 mg DAILY PO 05/29/24 10:00 05/29/24 08:54 20 MG Ferrous Sulfate 325 mg DAILY PO 05/29/24 10:00 05/29/24 08:53 325 MG Gabapentin 100 mg EOD PO 05/30/24 10:00 Paroxetine HCl 20 mg DAILY PO 05/29/24 10:00 05/29/24 08:54 20 MG Amlodipine Besylate 10 mg DAILY PO 05/29/24 10:00 05/29/24 08:54 10 MG Carvedilol 12.5 mg BID PO 05/28/24 22:00 05/29/24 21:38 12.5 MG Hydralazine HCl 100 mg BID PO 05/28/24 22:00 05/29/24 21:37 100 MG Levetiracetam 250 mg Q12H PO 05/28/24 20:00 05/29/24 20:15 250 MG Patient Own Medication 12 unit DAILY SC 05/29/24 08:30 05/29/24 16:48 12 UNIT Clonidine HCl 0.2 mg Q6HP PRN PO 05/29/24 00:30 Phenytoin Sodium 200 mg DAILY@1400 PO 05/29/24 15:00 Laboratory Results Laboratory Tests 05/29/24 08:37 Chemistry Test 05/29/24 08:37 Calcium Level 8.2 mg/dL (8.7-10.4) L Assessment/Plan Assessment/Plan Severe symptomatic anemia hemoglobin 7.0, improved to 8.0 after 1 unit RBC transfusion, we will check CBC today Diabetes Hypertension ESRD on hemodialysis , consult by Dr. Crowe appreciated, getting hemodialysis today Hypercholesterolemia History of CVA History of seizures Severe malnutrition Condition guarded Time spent 55 minutes Advanced care planning time 20 minutes Patient is full code [facility] [phone] Plan discussed with: Patient My Orders Orders - EULALIA LAND MD Procedure Category Date Status Time *Dr. Crowe Group CONS 05/29/24 Transmitted -[place] 13:13 *Dr. Crowe Group CONS 05/29/24 Transmitted -[place] 13:52 * Wound Consult CONS 05/29/24 Transmitted Complete Blood Count LAB 05/30/24 Transmitted 07:46 Comprehensive LAB 05/30/24 Transmitted Metabolic Panel 07:46 Date of Service: May 30, 2024 Billing Provider: EULALIA LAND MD Common Visit Codes: [id number] INP/OBS CARE(HIGH) EULALIA LAND MD May 30, 2024 07:48
[2024-05-30] MEDS: GABAPENTIN 100 MG CAP PO SCH (08:35)
[2024-05-30] MEDS ORDERED: SODIUM CHL 0.9% 1000 ML BAG XX ONE (10:00)
[2024-05-30 11:41] LABS: Basophils # (auto) 0 10 ^3/uL (0-0.2); Eosinophils # (auto) 0.2 10 ^3/uL (0-0.8); Lymphocytes # (auto) 0.6 10 ^3/uL (0.4-5.4); Monocytes # (auto) 0.2 10 ^3/uL (0-1.3); Platelet Count (auto) 136 10^3/uL (140-450)
[2024-05-30 11:44] LABS: Eosinophils % (auto) 4.5 % (0.0-7.0); Hematocrit 19.9 % (41.0-53.0); Lymphocytes % (auto) 17.4 % (10.0-50.0); Mean Corpuscular Hemoglobin 33.3 pg (28.0-32.0); Mean Corpuscular Hgb Conc. 35.2 g/dL (32.0-36.0); Mean Corpuscular Volume 94.6 fL (80.0-100.0); Neutrophils # (auto) 2.5 10 ^3/uL (1.6-8.6); Neutrophils % (auto) 71.1 % (37.0-80.0); Nucleated Red Blood Cells % 0.2 %; Red Cell Distribution Width 14.6 % (11.8-14.3); White Blood Cell 3.5 10^3/uL (4.4-10.8)
--- NOTE | 2024-05-30 12:47 | DVHPN2 ---
Progress Note - Dictate Date Seen: May 30, 2024 Medical Necessity Reason Pt with a Central, PICC or Fol: No Subjective patient seen on dialysis. vital signs Vital Sign Date Time Temp Pulse Resp B/P (MAP) Pulse Ox O2 Delivery O2 Flow Rate FiO2 05/30/24 12:28 62 159/86 05/30/24 09:00 98.3 14 96 98.3 05/30/24 08:00 Nasal Cannula* 1 24 Total Intake and Output 05/29/24 05/29/24 05/30/24 15:00 23:00 07:00 Intake Total 800 ml 480 ml Balance 800 ml 480 ml medications Current Medications Medications Dose Ordered Sig/Tomasa Route Start Time Stop Time Status Last Admin Dose Admin Diagnostic Test (Pha) 1 strip IQ4HR 05/28/24 20:00 05/30/24 12:28 1 STRIP Insulin Human Regular IQ4HR SC 05/28/24 20:00 Dextrose 50 ml UD PRN IV 05/28/24 16:30 Al Hydrox/Mg Hydrox/Simethicone 30 ml Q6HP PRN PO 05/28/24 16:30 Docusate Sodium 100 mg BIDPRN PRN PO 05/28/24 16:30 Acetaminophen 650 mg Q6HP PRN PO 05/28/24 16:30 Temazepam 15 mg QHSP PRN PO 05/28/24 16:30 Acetaminophen/ Hydrocodone Bitart 1 tab Q4HP PRN PO 05/28/24 16:30 Ondansetron HCl 4 mg Q4HP PRN IV 05/28/24 16:30 Morphine Sulfate 2 mg Q4HPRN PRN IV 05/28/24 16:30 Atorvastatin Calcium 20 mg DAILY PO 05/29/24 10:00 05/30/24 08:33 20 MG Ferrous Sulfate 325 mg DAILY PO 05/29/24 10:00 05/30/24 08:35 325 MG Gabapentin 100 mg EOD PO 05/30/24 10:00 05/30/24 08:35 100 MG Paroxetine HCl 20 mg DAILY PO 05/29/24 10:00 05/30/24 08:33 20 MG Amlodipine Besylate 10 mg DAILY PO 05/29/24 10:00 05/30/24 08:31 10 MG Carvedilol 12.5 mg BID PO 05/28/24 22:00 05/30/24 08:35 12.5 MG Hydralazine HCl 100 mg BID PO 05/28/24 22:00 05/30/24 08:33 100 MG Levetiracetam 250 mg Q12H PO 05/28/24 20:00 05/30/24 08:30 250 MG Patient Own Medication 12 unit DAILY SC 05/29/24 08:30 05/29/24 16:48 12 UNIT Clonidine HCl 0.2 mg Q6HP PRN PO 05/29/24 00:30 Phenytoin Sodium 200 mg DAILY@1400 PO 05/29/24 15:00 objective gen: nad lungs: cta ext: no edema laboratory and microbiology Laboratory Tests 05/30/24 11:01 05/29/24 08:37 Test 05/29/24 08:37 Range/Units Serum Glucose 86 74-106 mg/dL Assessment/Plan IMP: 1) ESRD on dialysis 2) acute on chronic anemia 3) hypertension 4) diabetes 5) dyslipidemia REC: plan to UF approximately 2 L today. Clinical stable from nephrology perspective Noted drop in hemoglobin, per patient's no sign symptoms of enteral blood loss Plan discussed with: Patient, Spouse CC Plasma Assessment Blood Product Administration S: [id number] HEIDE MIKE MD May 30, 2024 12:47
[2024-05-30 16:42] LABS: Albumin 3.2 g/dL (3.2-4.8); Anion Gap 6 (5-15); BUN/Creatinine Ratio 7.9 (10.0-20.0); Blood Urea Nitrogen 22 mg/dL (9-23); Chloride 104 mmol/L (98-107); Potassium 4.1 mmol/L (3.5-5.1); Sodium 142 mmol/L (136-145)
[2024-05-30 16:44] LABS: Alanine Aminotransferase 56 U/L (7-40); Alkaline Phosphatase 225 U/L (46-116); Aspartate Aminotransferase 50 U/L (13-40); Bilirubin, Total < 0.2 mg/dL (0.2-1.0); Calcium 8.4 mg/dL (8.7-10.4); Carbon Dioxide 32 mmol/L (20-31); Glucose 241 mg/dL (74-106); Total Protein 5.6 g/dL (5.7-8.2)
[2024-05-31] VITALS (7 sets, daily range): BP systolic 148–171; BP diastolic 59–66; PULSE 54–64; RESP 12–18; TEMP 97.6–98.9; O2SAT 90–97
--- NOTE | 2024-05-31 08:24 | DVHDS2 ---
Discharge Summary Date of Admission May 28, 2024 at 16:29 Date of Discharge: May 31, 2024 Admitting Diagnosis Generalized weakness Wounds: None Labs/Diagnostic Data: Laboratory Results Test 05/30/24 20:04 05/30/24 15:30 05/30/24 11:01 05/29/24 08:37 POC Glucose 411 mg/dl (70-106) Sodium Level 142 mmol/L (136-145) Potassium Level 4.1 mmol/L (3.5-5.1) Chloride Level 104 mmol/L (98-107) Carbon Dioxide Level 32 mmol/L (20-31) Anion Gap 6 (5-15) Blood Urea Nitrogen 22 mg/dL (9-23) Creatinine 2.78 mg/dL (0.700-1.30) Glomerular Filtration Rate Calc 25 mL/min (>90) BUN/Creatinine Ratio 7.9 (10.0-20.0) Serum Glucose 241 mg/dL (74-106) Calcium Level 8.4 mg/dL (8.7-10.4) Total Bilirubin < 0.2 mg/dL (0.2-1.0) Aspartate Amino Transferase (AST) 50 U/L (13-40) Alanine Aminotransferase (ALT) 56 U/L (7-40) Alkaline Phosphatase 225 U/L (46-116) Total Protein 5.6 g/dL (5.7-8.2) Albumin 3.2 g/dL (3.2-4.8) White Blood Count 3.5 10^3/uL (4.4-10.8) Red Blood Count 2.10 10^6/uL (4.5-5.90) Hemoglobin 7.0 g/dL (13.5-17.5) Hematocrit 19.9 % (41.0-53.0) Mean Corpuscular Volume 94.6 fL (80.0-100.0) Mean Corpuscular Hemoglobin 33.3 pg (28.0-32.0) Mean Corpuscular Hemoglobin Concent 35.2 g/dL (32.0-36.0) Red Cell Distribution Width 14.6 % (11.8-14.3) Platelet Count 136 10^3/uL (140-450) Mean Platelet Volume 6.8 fL (6.9-10.8) Neutrophils (%) (Auto) 71.1 % (37.0-80.0) Lymphocytes (%) (Auto) 17.4 % (10.0-50.0) Monocytes (%) (Auto) 6.0 % (0.0-12.0) Eosinophils (%) (Auto) 4.5 % (0.0-7.0) Basophils (%) (Auto) 1.0 % (0.0-2.0) Neutrophils # (Auto) 2.5 10 ^3/uL (1.6-8.6) Lymphocytes # (Auto) 0.6 10 ^3/uL (0.4-5.4) Monocytes # (Auto) 0.2 10 ^3/uL (0-1.3) Eosinophils # (Auto) 0.2 10 ^3/uL (0-0.8) Basophils # (Auto) 0 10 ^3/uL (0-0.2) Nucleated Red Blood Cells 0.2 % Phenytoin (Dilantin) Level 2.3 ug/mL (10-20) Test 05/28/24 14:30 Troponin I High Sensitivity 19 ng/L (</=54) Other Laboratory Tests 05/30/24 15:30 05/30/24 11:01 Brief Hx & Hospital Course: 59-year-old male with a history of ESRD on dialysis hypercholesterolemia history of CVA seizures hypertension diabetes brought in from the dialysis center for generalized weakness hemoglobin was low 7.0 2 units RBC transfusion given and hemoglobin is improved. Patient received hemodialysis by Dr. Crowe. is requesting patient to be discharged. He has an appointment with his PCP Dr. Chilo Alston in [place] tomorrow. General condition satisfactory at the time of discharge. Consults/Reason for consult Nephrology Dr. Crowe Operations or Procedures RBC transfusion Condition at Discharge: Fair Final Diagnosis/Problems List Severe symptomatic anemia hemoglobin 7.0, 2 units RBC transfusion given Diabetes Hypertension ESRD on hemodialysis , consult by Dr. 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 Chilo Alston in [place] tomorrow Continue all previous home medications Medications: None 35 (Time taken for discharge summary 35 minutes) Discharge Statement: "Patient was advised to return to the ER or call 911 if any headaches, dizziness, shortness of breath, chest pain, abdominal pain, bleeding, fevers, or worsening of medical condition. Patient was counseled about treatment plan, medications, possible side effects, patientverbalized understanding. All questions were answered to the best of my ability. This discharge took greater then 30 minutes in planning, reviewing documentation, counseling the patient, and discussing with other team members." ASSESSMENT ASSESSMENT Hospital Course Improved Assessment Severe symptomatic anemia hemoglobin 7.0, 2 units RBC transfusion given Diabetes Hypertension ESRD on hemodialysis , consult by Dr. Crowe appreciated, getting hemodialysis today Hypercholesterolemia History of CVA History of seizures Severe malnutrition Date of Service: May 31, 2024 Billing Provider: EULALIA LAND MD Common Visit Codes: [id number] DISCH DAY >30min EULALIA LAND MD May 31, 2024 08:24
[2024-05-31 11:33] LABS: Basophils # (auto) 0 10 ^3/uL (0-0.2); Basophils % (auto) 0.9 % (0.0-2.0); Eosinophils # (auto) 0.2 10 ^3/uL (0-0.8); Eosinophils % (auto) 5.4 % (0.0-7.0); Hematocrit 25.2 % (41.0-53.0); Hemoglobin 8.5 g/dL (13.5-17.5); Lymphocytes # (auto) 0.7 10 ^3/uL (0.4-5.4); Lymphocytes % (auto) 16.5 % (10.0-50.0); Mean Corpuscular Hemoglobin 32.3 pg (28.0-32.0); Mean Corpuscular Hgb Conc. 33.6 g/dL (32.0-36.0); Mean Corpuscular Volume 96.2 fL (80.0-100.0); Monocytes # (auto) 0.3 10 ^3/uL (0-1.3); Monocytes % (auto) 7.4 % (0.0-12.0); Neutrophils # (auto) 2.8 10 ^3/uL (1.6-8.6); Neutrophils % (auto) 69.8 % (37.0-80.0); Nucleated Red Blood Cells % 0.1 %; Platelet Count (auto) 131 10^3/uL (140-450); Red Blood Cells 2.62 10^6/uL (4.5-5.90); White Blood Cell 4.1 10^3/uL (4.4-10.8)
--- NOTE | 2024-05-31 16:39 | DVHPN2 ---
Progress Note - Dictate Date Seen: May 31, 2024 Medical Necessity Reason Pt with a Central, PICC or Fol: No Subjective patient seen earlier today, patient's at bedside again. Noted plans for discharge. vital signs Vital Sign Date Time Temp Pulse Resp B/P (MAP) Pulse Ox O2 Delivery O2 Flow Rate FiO2 05/31/24 13:58 98.9 62 18 91 05/31/24 13:00 148/63 (91) 05/31/24 08:00 Nasal Cannula* 1 24 Total Intake and Output 05/30/24 05/30/24 05/31/24 15:00 23:00 07:00 Intake Total 1000 ml 1650 ml Balance 1000 ml 1650 ml medications Current Medications Medications Dose Ordered Sig/Tomasa Route Start Time Stop Time Status Last Admin Dose Admin Diagnostic Test (Pha) 1 strip IQ4HR 05/28/24 20:00 05/31/24 12:12 1 STRIP Insulin Human Regular IQ4HR SC 05/28/24 20:00 Dextrose 50 ml UD PRN IV 05/28/24 16:30 Al Hydrox/Mg Hydrox/Simethicone 30 ml Q6HP PRN PO 05/28/24 16:30 Docusate Sodium 100 mg BIDPRN PRN PO 05/28/24 16:30 Acetaminophen 650 mg Q6HP PRN PO 05/28/24 16:30 Temazepam 15 mg QHSP PRN PO 05/28/24 16:30 Acetaminophen/ Hydrocodone Bitart 1 tab Q4HP PRN PO 05/28/24 16:30 Ondansetron HCl 4 mg Q4HP PRN IV 05/28/24 16:30 Morphine Sulfate 2 mg Q4HPRN PRN IV 05/28/24 16:30 Atorvastatin Calcium 20 mg DAILY PO 05/29/24 10:00 05/31/24 08:38 20 MG Ferrous Sulfate 325 mg DAILY PO 05/29/24 10:00 05/31/24 08:38 325 MG Gabapentin 100 mg EOD PO 05/30/24 10:00 05/30/24 08:35 100 MG Paroxetine HCl 20 mg DAILY PO 05/29/24 10:00 05/31/24 08:38 20 MG Amlodipine Besylate 10 mg DAILY PO 05/29/24 10:00 05/31/24 08:36 10 MG Carvedilol 12.5 mg BID PO 05/28/24 22:00 05/31/24 08:38 12.5 MG Hydralazine HCl 100 mg BID PO 05/28/24 22:00 05/31/24 08:36 100 MG Levetiracetam 250 mg Q12H PO 05/28/24 20:00 05/31/24 08:37 250 MG Patient Own Medication 12 unit DAILY SC 05/29/24 08:30 05/31/24 13:36 12 UNIT Clonidine HCl 0.2 mg Q6HP PRN PO 05/29/24 00:30 Phenytoin Sodium 200 mg DAILY@1400 PO 05/29/24 15:00 05/31/24 13:36 200 MG objective gen: nad lungs: cta ext: no edema laboratory and microbiology Laboratory Tests 05/31/24 11:19 05/30/24 15:30 Test 05/30/24 15:30 Range/Units Serum Glucose 241 #H 74-106 mg/dL Assessment/Plan IMP: 1) ESRD on dialysis 2) acute on chronic anemia 3) hypertension 4) diabetes 5) dyslipidemia REC: discussed with patient's regarding going to outpatient dialysis Saturday of this week. She expressed understanding. Plan discussed with: Spouse CC Plasma Assessment Blood Product Administration S: [id number] HEIDE MIKE MD May 31, 2024 16:39
== END 2024-05-31 16:01 | disposition home or self-care (01) | DRG 682 ==
LOC: ER 13:40 → OVERFLOW 16:29 → CENTRAL 05-29 07:00
PROVIDERS: ADMIT Hospitalist; ATTEND Family Medicine
PROC: 30233N1 Transfusion of Nonautologous Red Blood Cells into Peripheral Vein, Percutaneous Approach (ICD-10-PCS; principal; 2024-05-28)
DX: I12.0 Hypertensive chronic kidney disease with stage 5 chronic kidney disease or end stage renal disease (principal); E43 Unspecified severe protein-calorie malnutrition; N18.6 End stage renal disease; D50.9 Iron deficiency anemia, unspecified; E11.22 Type 2 diabetes mellitus with diabetic chronic kidney disease; M10.9 Gout, unspecified; E78.00 Pure hypercholesterolemia, unspecified; Z99.2 Dependence on renal dialysis; Z86.73 Personal history of transient ischemic attack (TIA), and cerebral infarction without residual deficits; Z83.3 Family history of diabetes mellitus; Z68.21 Body mass index [BMI] 21.0-21.9, adult; Z79.899 Other long term (current) drug therapy; Z79.4 Long term (current) use of insulin; D63.1 Anemia in chronic kidney disease
CPT/HCPCS: 36415; 80048; 80053; 80185; 82962; 83880; 84484; 85025; 86850; 86900; 86901; 86920; 99291; G0378

== ENCOUNTER 2024-06-09 13:10 | Emergency (ER) | payer MEDICARE, MEDICAID ==
[~2024-06-09] VITALS: Ht 185.4 cm; Wt 84.5 kg
[2024-06-09] MEDS: levETIRAcetam 1000 mg/100ml 100 ML IV ONE (13:45)
--- NOTE | 2024-06-09 13:49 | ED.PDOC ---
HPI (NEURO) HPI Comments 59 Y M, with PMHX of seizure, ESRD, HTN, CVA, HLD, DM presents to the ED with CC of seizure. Per patient's patient received dialysis today and on his was home with dialysis funeral limousine driver he began to experience a seizure. Patient's states that she instructed funeral limousine driver to bring patient to ED. Dialysis funeral limousine driver states, that patient's seizure lasted 1-2minutes with convulsing like activity. Per , patient has not had a seizure in over a year and currently takes Keppra bid. Chief Complaint: Seizure Time Seen by MD: 13:20 Primary Care Provider: UNKNOWN Reviewed Notes: Nurses Notes, Medications, Allergies Information Source: Patient, Significant Other Mode of Arrival: Wheelchair Severity: Moderate Timing: Minutes Duration: Minutes Symptoms: None During: Trauma: None History of: None Modifying factors: Nothing Associated Signs and Symptoms: None Past Medical History PAST MEDICAL HISTORY: CVA, DM, ESRD, Gout, High Lipids, HTN Surgical History: Appendectomy Family History Family History: Reviewed,noncontributory to illness, No family hx of Cancer Social History Smoker: Non-Smoker Alcohol: Denies ETOH Use Drugs: Denies Drug Use Lives In: Home Constitutional: denies: chills, diaphoresis, fatigue, fever, malaise, sweats, weakness, others EENTM: denies: blurred vision, double vision, ear bleeding, ear discharge, ear drainage, ear pain, ear ringing, eye pain, eye redness, hearing loss, mouth pain, mouth swelling, nasal discharge, nose bleeding, nose congestion, nose pain, photophobia, tearing, throat pain, throat swelling, voice changes, others Respiratory: denies: cough, hemoptysis, orthopnea, SOB at rest, shortness of breath, SOB with excertion, stridor, wheezing, others Cardiovascular: denies: chest pain, dizzy spells, diaphoresis, Dyspnea on exertion, edema, irregular heart beat, left arm pain, lightheadedness, palpitations, PND, syncope, others Gastrointestinal: denies: abdomen distended, abdominal pain, blood streaked bowels, constipated, diarrhea, dysphagia, difficulty swallowing, hematemesis, melena, nausea, poor appetite, poor fluid intake, rectal bleeding, rectal pain, vomiting, others Genitourinary: denies: burning, dysuria, flank pain, frequency, hematuria, incontinence, penile discharge, penile sore, pain, testicle pain, testicle swel ling, urgency, others Neurological: denies: dizziness, fainting, headache, left sided numbness, left sided weakness, numbness, paresthesia, pre-existing deficit, right sided numbness, right sided weakness, seizure, speech problems, tingling, tremors, weakness, others Musculoskeletal: denies: back pain, gout, joint pain, joint swelling, muscle pain, muscle stiffness, neck pain, others Integumetry: denies: bruises, change in color, change in hair/nails, dryness, laceration, lesions, lumps, rash, wounds, others Allergic/Immunocompromised: denies: Difficulty Healing, Frequent Infections, Hives, Itching, others Hematologic/Lymphatic: denies: anemia, blood clots, easy bleeding, easy bruising, swollen glands, others Endocrine: denies: excessive hunger, excessive sweating, excessive thirst, excessive urination, flushing, intolerance to cold, intolerance to heat, unexplained weight gain, unexplained weight loss, others Psychiatric: denies: anxiety, bipolar disorder, depression, hopeless, panic disorder, schizophrenia, sleepless, suicidal, others All Other Systems: Reviewed and Negative Physical Exam General Appearance: No Apparent Distress, Other (Chronically ill-appearing) HEENT: PERRL/EOMI Neck: Non-Tender Respiratory: No Respiratory Distress Cardiovascular: Regular Rate/Rhythm Breast Exam: Deferred Gastrointestinal: Normal Bowel Sounds Genitalia: Deferred Pelvic: Deferred Rectal: Deferred Extremities: Non-tender Neurologic: Other (Postictal well-appearing not answering questions) Cerebellar Function: NOT DONE Reflexes: NOT DONE Skin: Dry, Normal Color, Warm Lymphatic: No Adenopathy EKG EKG : Pulse Rate (adult): 70 Wilson: Normal Cardiac Rhythm: NSR Block: None Hypertrophy: LVH ST: Normal Was a procedure done? Was a procedure done?: No Differential Diagnosis (SZ) Seizure: CVA/TIA X-Ray, Labs, Meds, VS Vital Signs Date Time Temp Pulse Resp B/P (MAP) Pulse Ox O2 Delivery O2 Flow Rate FiO2 06/09/24 15:50 98.0 74 18 117/64 (81) 99 98.0 06/09/24 13:49 70 06/09/24 13:29 70 06/09/24 13:18 98.1 70 16 186/78 (114) 94 Lab Test 06/09/24 13:54 06/09/24 13:24 Range/Units White Blood Count 4.6 4.4-10.8 10^3/uL Red Blood Count 2.86 L 4.5-5.90 10^6/uL Hemoglobin 9.3 L 13.5-17.5 g/dL Hematocrit 27.7 L 41.0-53.0 % Mean Corpuscular Volume 96.8 80.0-100.0 fL Mean Corpuscular Hemoglobin 32.6 H 28.0-32.0 pg Mean Corpuscular Hemoglobin Concent 33.7 32.0-36.0 g/dL Red Cell Distribution Width 15.1 H 11.8-14.3 % Platelet Count 218 140-450 10^3/uL Mean Platelet Volume 6.7 L 6.9-10.8 fL Neutrophils (%) (Auto) 72.6 37.0-80.0 % Lymphocytes (%) (Auto) 12.2 10.0-50.0 % Monocytes (%) (Auto) 10.2 0.0-12.0 % Eosinophils (%) (Auto) 4.2 0.0-7.0 % Basophils (%) (Auto) 0.8 0.0-2.0 % Neutrophils # (Auto) 3.3 1.6-8.6 10 ^3/uL Lymphocytes # (Auto) 0.6 0.4-5.4 10 ^3/uL Monocytes # (Auto) 0.5 0-1.3 10 ^3/uL Eosinophils # (Auto) 0.2 0-0.8 10 ^3/uL Basophils # (Auto) 0 0-0.2 10 ^3/uL Nucleated Red Blood Cells 0.2 % Sodium Level 140 136-145 mmol/L Potassium Level 4.2 3.5-5.1 mmol/L Chloride Level 105 98-107 mmol/L Carbon Dioxide Level 27 20-31 mmol/L Anion Gap 8 5-15 Blood Urea Nitrogen 31 H 9-23 mg/dL Creatinine 3.17 H 0.700-1.30 mg/dL Glomerular Filtration Rate Calc 22 >90 mL/min BUN/Creatinine Ratio 9.8 L 10.0-20.0 Serum Glucose 156 H 74-106 mg/dL Calcium Level 8.1 L 8.7-10.4 mg/dL Troponin I High Sensitivity 18 </=54 ng/L POC Glucose 146 H 70-106 mg/dl Current Medications Medications (Trade) Dose Ordered Sig/Tomasa Route Start Time Stop Time Status Last Admin Midazolam HCl (Versed Injection) 5 mg ONCE ONCE IM 06/09/24 15:15 06/09/24 15:16 DC 06/09/24 15:26 Time of 1ST Reevaluation: 13:50 Reevaluation 1ST: Unchanged Patient Education/Counseling: Diagnosis, Treatment Family Education/Counseling: Diagnosis, Treatment Additional Information I reviewed the following notes from patient's past medical encounters: 05/31/24 DX: Anemia, ESRD The following tests were ordered, and results were reviewed by me: TROPONIN, CBC,CMP, EKG Additional Information was gathered from interviewing the following independent historians: FAMILY I discussed treatment and results with medical personnel and: FAMILY Departure 1 Departure Time of Disposition: 17:26 (Patient has returned to baseline and family would like to take him home. We will discharge patient with outpatient follow up) Impression: Primary Impression: Breakthrough seizure Disposition: 01 HOME / SELF CARE / HOMELESS Condition: Stable Additional Instructions: You had a breakthrough seizure today. It is important to take your seizure medication. You should stay well rested and well hydrated. You should follow up with your regular doctor within 1 week. If your symptoms worsen or you have any other concerns then please return to the emergency room. Discharged With: Self Critical Care Note Critical Care Time?: No Stability Stability form required: No Heart Score Heart Score: Heart Score Response (Comments) Value History N/A 0 EKG N/A 0 Age N/A 0 Risk Factors N/A 0 Troponin N/A 0 Total 0 I personally scribed for MARII MATHIS MD ([email or web address]) on 06/09/24 at 13:49. Electronically submitted by Natalie Acuña ([email or web address]). I personally scribed for MARII MATHIS MD ([email or web address]) on 06/09/24 at 14:40. Electronically submitted by Natalie Acuña ([email or web address]). MARII MATHIS MD Jun 09, 2024 13:49
[2024-06-09 14:00] VITALS: PULSE 71; RESP 17
[2024-06-09 14:20] LABS: Basophils # (auto) 0 10 ^3/uL (0-0.2); Basophils % (auto) 0.8 % (0.0-2.0); Eosinophils # (auto) 0.2 10 ^3/uL (0-0.8); Eosinophils % (auto) 4.2 % (0.0-7.0); Hematocrit 27.7 % (41.0-53.0); Hemoglobin 9.3 g/dL (13.5-17.5); Lymphocytes # (auto) 0.6 10 ^3/uL (0.4-5.4); Lymphocytes % (auto) 12.2 % (10.0-50.0); Mean Corpuscular Hemoglobin 32.6 pg (28.0-32.0); Mean Corpuscular Hgb Conc. 33.7 g/dL (32.0-36.0); Mean Corpuscular Volume 96.8 fL (80.0-100.0); Monocytes # (auto) 0.5 10 ^3/uL (0-1.3); Monocytes % (auto) 10.2 % (0.0-12.0); Neutrophils # (auto) 3.3 10 ^3/uL (1.6-8.6); Neutrophils % (auto) 72.6 % (37.0-80.0); Nucleated Red Blood Cells % 0.2 %; Platelet Count (auto) 218 10^3/uL (140-450); Red Blood Cells 2.86 10^6/uL (4.5-5.90); Red Cell Distribution Width 15.1 % (11.8-14.3); White Blood Cell 4.6 10^3/uL (4.4-10.8)
[2024-06-09 14:22] LABS: Chloride 105 mmol/L (98-107); Potassium 4.2 mmol/L (3.5-5.1); Sodium 140 mmol/L (136-145)
[2024-06-09 14:23] LABS: Anion Gap 8 (5-15); Carbon Dioxide 27 mmol/L (20-31)
[2024-06-09 14:28] LABS: BUN/Creatinine Ratio 9.8 (10.0-20.0)
[2024-06-09 14:30] LABS: Blood Urea Nitrogen 31 mg/dL (9-23); Calcium 8.1 mg/dL (8.7-10.4); Glucose 156 mg/dL (74-106)
[2024-06-09] MEDS: MIDAZOLAM HCL 5 MG/ML-1ML VIAL IM ONE (15:26)
[2024-06-09 17:56] VITALS: BP 130/79; PULSE 71; RESP 18; TEMP 98.3; O2SAT 100
--- NOTE | 2024-06-10 02:06 | ECG ---
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
== END 2024-06-09 18:15 | disposition home or self-care (01) ==
LOC: ER 13:10
DX: G40.909 Epilepsy, unspecified, not intractable, without status epilepticus (principal); E78.5 Hyperlipidemia, unspecified; I12.0 Hypertensive chronic kidney disease with stage 5 chronic kidney disease or end stage renal disease; E11.22 Type 2 diabetes mellitus with diabetic chronic kidney disease; N18.6 End stage renal disease; Z99.2 Dependence on renal dialysis; Z86.73 Personal history of transient ischemic attack (TIA), and cerebral infarction without residual deficits
CPT/HCPCS: 36415; 80048; 82962; 84484; 85025; 93005; 96372; 99285; J2250

== ENCOUNTER 2024-10-01 20:08 | Inpatient (IN) | payer MEDICARE, MEDICAID ==
[~2024-10-01] VITALS: Ht 182.9 cm; Wt 74.4 kg
[~2024-10-01 20:08] MED LIST changes: +ASPI81CH59 PO; +CARV12.544 PO; +EMPA1TAB3 PO; +HYDR100T10 PO; +LEVE250T78 PO; +LEVO25TA6 PO; +LEVO500T91 PO; +OMEP-448 PO; +PARO10TA93 PO; +PHEN125S PO; +SUCR5CHW PO
--- NOTE | 2024-10-01 20:29 | ED.PDOC ---
History of Present Illness HPI Comments 59-year-old male came to ER via EMS for shortness of breath. Per EMS, patient picked up at home, patient is bed-bound, does have history of hypertension, diabetes, CVA, CHF, COPD, ESRD, on dialysis every es, Th, Sat. Patient is normally A&O 1. Patient was noted by family members to be short of breath earlier, saturating 80s at room air. Patient underwent dialysis, however shortness of breath appeared to persist. Upon arrival of paramedics patient saturating at 92% on room air. Chief Complaint: Shortness of Breath Time Seen by MD: 20:27 Reviewed Notes: Retail Store Associate Notes Allergies: Coded Allergies: NO KNOWN ALLERGIES (Unverified , 10/01/24) Home Meds Reported Medications Amlodipine Besylate (Amlodipine Besylate) 10 Mg Tab, 1 TAB PO DAILY 10/02/24 Levetiracetam (Levetiracetam) 500 Mg Tab, 1 TAB PO BID 10/02/24 Information Source: Patient, Emergency Med Personnel Mode of Arrival: EMS Severity: Moderate Timing: Hours Duration: Since onset Review of Systems REVIEW OF SYSTEMS: Unable to obtain due to dementia (+) Patient at baseline A&0 1 Lungs: Shortness of breath Vital Signs Vital Signs Date Time Temp Pulse Resp B/P (MAP) Pulse Ox O2 Delivery O2 Flow Rate FiO2 10/01/24 23:27 98.7 64 12 167/38 (81) 94 98.7 10/01/24 23:27 Nasal Cannula* 2 28 Physical Exam General: Awake, alert and oriented. No acute distress. Skin: Skin in warm, dry and intact. Appropriate color for ethnicity. Nailbeds pink with no cyanosis. HEENT: The head is normocephalic and atraumatic. Conjunctivae are clear without exudates or hemorrhage. Sclera is non-icteric. EOM are intact. No signs of nystagmus. Left eyelid drooping noted. Nasal cannula in place Neck: The neck is supple No JVD. Cardiac: Heart rate and rhythm are normal. Gallop auscultated Respiratory: No signs of respiratory distress. Lung sounds are clear in all lobes bilaterally without rales, rhonchi, or wheezes. Abdominal: Abdomen is soft, non-tender with distention. Bowel sounds are present and normoactive in all four quadrants. Extremities: Left upper and lower extremity contractions noted. Neurological: The patient is awake, alert and oriented only to person, there is confusion with following commands. Speech is clear. There is facial asymmetry. Psychiatric: Appropriate mood and affect. Good judgement and insight. No visual or auditory hallucinations. Past Medical History PAST MEDICAL HISTORY: CHF, COPD, CVA (Left-sided deficits), DM, ESRD, HTN Surgical History (Other): Dialysis every Saturday Family History Family History: Reviewed,noncontributory to illness Social History Smoker: Non-Smoker Alcohol: Denies ETOH Use Drugs: Denies Drug Use Lives In: Home Was a procedure done? Was a procedure done?: No EKG EKG : Pulse Rate (adult): 64 Cardiac Rhythm: NSR Comments Prolonged QT interval Differential Dx Considerations may include: Anemia, electrolyte imbalance, end-stage renal disease, CHF, COPD, pulmonary embolism, acute coronary syndrome, pneumonia, URI, pulmonary edema, viral illness, other X-Ray, Labs, Meds, VS Vital Signs Date Time Temp Pulse Resp B/P (MAP) Pulse Ox O2 Delivery O2 Flow Rate FiO2 10/01/24 23:27 98.7 64 12 167/38 (81) 94 98.7 10/01/24 23:27 98.7 64 12 167/38 (81) 94 98.7 10/01/24 23:27 64 12 97 Nasal Cannula* 2 28 10/01/24 21:05 64 10/01/24 20:23 64 10/01/24 20:20 98.3 63 16 192/77 (115) 97 98.3 Lab Test 10/01/24 21:08 10/01/24 21:01 Range/Units White Blood Count 3.7 L 4.4-10.8 10^3/uL Red Blood Count 3.16 L 4.5-5.90 10^6/uL Hemoglobin 10.6 L 13.5-17.5 g/dL Hematocrit 32.1 L 41.0-53.0 % Mean Corpuscular Volume 101.5 H 80.0-100.0 fL Mean Corpuscular Hemoglobin 33.5 H 28.0-32.0 pg Mean Corpuscular Hemoglobin Concent 33.0 32.0-36.0 g/dL Red Cell Distribution Width 13.3 11.8-14.3 % Platelet Count 99 L 140-450 10^3/uL Mean Platelet Volume 8.2 6.9-10.8 fL Neutrophils (%) (Auto) 71.6 37.0-80.0 % Lymphocytes (%) (Auto) 14.7 10.0-50.0 % Monocytes (%) (Auto) 6.5 0.0-12.0 % Eosinophils (%) (Auto) 6.1 0.0-7.0 % Basophils (%) (Auto) 1.1 0.0-2.0 % Neutrophils # (Auto) 2.7 1.6-8.6 10 ^3/uL Lymphocytes # (Auto) 0.6 0.4-5.4 10 ^3/uL Monocytes # (Auto) 0.2 0-1.3 10 ^3/uL Eosinophils # (Auto) 0.2 0-0.8 10 ^3/uL Basophils # (Auto) 0 0-0.2 10 ^3/uL Nucleated Red Blood Cells 0.2 % Sodium Level 143 136-145 mmol/L Potassium Level 4.9 3.5-5.1 mmol/L Chloride Level 105 98-107 mmol/L Carbon Dioxide Level 29 20-31 mmol/L Anion Gap 9 5-15 Blood Urea Nitrogen 60 H 9-23 mg/dL Creatinine 3.72 H 0.700-1.30 mg/dL Glomerular Filtration Rate Calc 18 >90 mL/min BUN/Creatinine Ratio 16.1 10.0-20.0 Serum Glucose 303 H 74-106 mg/dL Calcium Level 8.2 L 8.7-10.4 mg/dL Magnesium Level 2.2 1.6-2.6 mg/dL Total Bilirubin < 0.2 L 0.2-1.0 mg/dL Aspartate Amino Transferase (AST) 26 13-40 U/L Alanine Aminotransferase (ALT) 39 7-40 U/L Alkaline Phosphatase 202 H 46-116 U/L Troponin I High Sensitivity 18 </=54 ng/L Total Protein 5.7 5.7-8.2 g/dL Albumin 3.2 3.2-4.8 g/dL Blood Gas Specimen Type Arterial Blood Gas Sample Site Right radial Blood Gas Patient Temperature 37.0 Arterial Blood Date Drawn [id number] Arterial Blood pH 7.425 7.350-7.450 Arterial Blood Partial Pressure CO2 46.0 35.0-48.0 mmHg Arterial Blood Partial Pressure O2 61.0 L 83.0-108.0 mmHg Arterial Blood HCO3 29.5 H 21.0-28.0 mmol/L Arterial Blood Oxygen Saturation 89.8 L 94.0-98.0 % Arterial Blood Base Excess 4.5 H -2.0-3.0 mmol/L Arterial Blood Oxyhemoglobin 88.3 L 94.0-98.0 % Arterial Blood Carboxyhemoglobin 1.4 0.5-1.5 % Arterial Blood Methemoglobin 0.3 0.0-1.5 % Warner Test Yes Blood Gas Total Hemoglobin 10.60 L 13.5-17.5 g/dL Blood Gas Liter Flow 1.00 Blood Gas Modality Nasal cannula FiO2 % 24.0 CHEST RADIOGRAPH Indication: Short of breath Technique: Single frontal view of the chest was obtained Comparison: None FINDINGS: Lines and Tubes: None Lungs: Patient's left hand is superimposed over the left lower lung field. Airspace disease is noted in the lung bases bilaterally right worse than left. Pleura: No effusion. No pneumothorax. Cardiomediastinal contours: Cardiomegaly Bones: No acute osseous abnormality. IMPRESSION: 1. Airspace disease in both lung bases right worse than left. 2. Cardiomegaly HS:Y Time of 1ST Reevaluation: 20:22 Reevaluation 1ST: Unchanged Patient Education/Counseling: Other (Patient has a history of dementia) Family Education/Counseling: No Family Present Departure 1 Departure Time of Disposition: 22:16 Impression: Primary Impression: Pneumonia Additional Impression: Hypoxemia Disposition: ADMITTED INPATIENT Condition: Stable Comments 59-year-old male with history of dementia and end-stage renal disease on dialysis presents with shortness of breath. Chest x-ray suggestive of pneumonia. Antibiotics initiated in the emergency department. Patient admitted for further treatment, evaluation and monitoring. Extensive evaluation was performed in attempt to identify or rule out: (See differential diagnosis section) The following tests were ordered, and results were reviewed by me and discussed with patient: (See diagnostic results section) The following test were independently interpreted by me: EKG chest x-ray I reviewed and agreed with the following test results read by other providers: Chest x-ray I reviewed the following notes from the pt's past medical encounters: None available at this time Additional information was gathered from interviewing the following independent historians: EMS personnel Discussion of management or test interpretation with external physician/other qualified health behavioral health care manager: N/A Addressed an acute or chronic illness that poses a threat to life or bodily function: Shortness of breath Decision regarding hospitalization or escalation of hospital level of care: Risk and benefits of admission for further treatment of patient's condition was considered. Due to patient's current clinical condition, high risk of decline and poor outcome if discharged and need for further inpatient management and monitoring, patient will be admitted to the hospital. Drug therapy requiring intensive monitoring for toxicity: N/A Parenteral controlled substances: N/A Decision regarding elective major surgery with identified patient or procedure risk factors: N/A Decision regarding emergency major surgery: N/A Decision not to resuscitate or to de-escalate care because of poor prognosis: N/A Diagnosis or treatment significantly limited by social determinants of health: N/A Critical Care Note Critical Care Time?: Yes (35 min-critical care time only) Critical care comment: Hypertensive urgency, hyperglycemia, altered level of consciousness, shortness of breath Stability Stability form required: No Heart Score Heart Score: Heart Score Response (Comments) Value History Moderate Suspicious 1 EKG Repolarization Disturb 1 Age >65 2 Risk Factors >3 or Hx ASHD 2 Troponin Normal limit 0 Total 6 I personally scribed for LEANDRO ALCANTARA MD ([email or web address]) on 10/01/24 at 20:29. Electronically submitted by Cliff Nunez ([email or web address]). I personally scribed for LEANDRO ALCANTARA MD ([email or web address]) on 10/01/24 at 21:05. Electronically submitted by Cliff Nunez ([email or web address]). I personally scribed for LEANDRO ALCANTARA MD ([email or web address]) on 10/01/24 at 21:57. Electronically submitted by Cliff Nunez ([email or web address]). LEANDRO ALCANTARA MD Oct 01, 2024 20:29
[2024-10-01 21:20] LABS: Base Excess 4.5 mmol/L (-2.0-3.0)
[2024-10-01 21:24] LABS: Basophils # (auto) 0 10 ^3/uL (0-0.2); Basophils % (auto) 1.1 % (0.0-2.0); Eosinophils # (auto) 0.2 10 ^3/uL (0-0.8); Eosinophils % (auto) 6.1 % (0.0-7.0); Hematocrit 32.1 % (41.0-53.0); Hemoglobin 10.6 g/dL (13.5-17.5); Lymphocytes # (auto) 0.6 10 ^3/uL (0.4-5.4); Lymphocytes % (auto) 14.7 % (10.0-50.0); Mean Corpuscular Hemoglobin 33.5 pg (28.0-32.0); Mean Corpuscular Volume 101.5 fL (80.0-100.0); Monocytes # (auto) 0.2 10 ^3/uL (0-1.3); Monocytes % (auto) 6.5 % (0.0-12.0); Neutrophils # (auto) 2.7 10 ^3/uL (1.6-8.6); Neutrophils % (auto) 71.6 % (37.0-80.0); Nucleated Red Blood Cells % 0.2 %; Platelet Count (auto) 99 10^3/uL (140-450); Red Blood Cells 3.16 10^6/uL (4.5-5.90); Red Cell Distribution Width 13.3 % (11.8-14.3); White Blood Cell 3.7 10^3/uL (4.4-10.8)
--- NOTE | 2024-10-01 21:35 | DVH ---
CHEST RADIOGRAPH Indication: Short of breath Technique: Single frontal view of the chest was obtained Comparison: None FINDINGS: Lines and Tubes: None Lungs: Patient's left hand is superimposed over the left lower lung field. Airspace disease is noted in the lung bases bilaterally right worse than left. Pleura: No effusion. No pneumothorax. Cardiomediastinal contours: Cardiomegaly Bones: No acute osseous abnormality. IMPRESSION: 1. Airspace disease in both lung bases right worse than left. 2. Cardiomegaly HS:Y
[2024-10-01 21:36] LABS: Alanine Aminotransferase 39 U/L (7-40); Albumin 3.2 g/dL (3.2-4.8); Anion Gap 9 (5-15); Aspartate Aminotransferase 26 U/L (13-40); BUN/Creatinine Ratio 16.1 (10.0-20.0); Carbon Dioxide 29 mmol/L (20-31); Chloride 105 mmol/L (98-107); Magnesium 2.2 mg/dL (1.6-2.6); Potassium 4.9 mmol/L (3.5-5.1); Sodium 143 mmol/L (136-145)
[2024-10-01 21:37] LABS: Alkaline Phosphatase 202 U/L (46-116); Bilirubin, Total < 0.2 mg/dL (0.2-1.0); Blood Urea Nitrogen 60 mg/dL (9-23); Calcium 8.2 mg/dL (8.7-10.4); Glucose 303 mg/dL (74-106); Total Protein 5.7 g/dL (5.7-8.2)
[2024-10-01] MEDS: cefTRIAXone 1GM/50ML D5W 50 ML IV ONE (23:08)
[2024-10-01 23:27] VITALS: PULSE 64; RESP 12; O2SAT 97
--- NOTE | 2024-10-01 23:31 | DVHHPRES ---
History of Present Illness Resident Creating Document: ACOSTA GAN RESIDENT History of Present Illness 59-year-old male with past medical history of stroke in 2019 after which patient become alert and oriented times 1 which is baseline, CHF, COPD, diabetes mellitus type 2, end-stage renal disease with dialysis on Saturday, hypertension presented in the ER because of noticed that patient started having trouble breathing and had gurgling sounds for last one day. Patient is alert and oriented x1 in the ER and can not communicate and does not answer to any questions asked and primary communication is done with the . denied any other symptoms Past medical history stroke in 2019 after which patient become alert and oriented times 1 which is baseline, CHF, COPD, diabetes mellitus type 2, end-stage renal disease with dialysis on Saturday, hypertension Past surgical history Denied recent surgery Social history Denied smoking, marijuana, alcohol and any other recreational drugs Family history Nonsignificant Review of Systems Review of Systems Can not be done because patient does not communicate and does not answer to the questions Allergies: Coded Allergies: NO KNOWN ALLERGIES (Unverified , 10/01/24) Medications Current Medications Medications Dose Ordered Sig/Tomasa Route Start Time Stop Time Status Last Admin Dose Admin Vancomycin HCl 200 ml @ 200 mls/hr Q1H IV 10/01/24 22:30 10/02/24 00:29 Exam Vital Signs Vital Signs Date Time Temp Pulse Resp B/P (MAP) Pulse Ox O2 Delivery O2 Flow Rate FiO2 10/01/24 21:05 64 10/01/24 20:20 98.3 16 192/77 (115) 97 98.3 Exam Examination General Appearance: Alert, oriented x1, confused, at his baseline Respiratory: Clear to auscultation, Normal air movement Cardiovascular: Regular rate, Normal S1, Normal S2 Abdominal: Normal bowel sounds Extremities: No cyanosis, No edema, Normal pulses, No tenderness/swelling, av fistula in the left arm Skin: No rashes, No breakdown Neuro: Motor deficit in the left side Labs/Xrays Labs Test 10/01/24 21:08 10/01/24 21:01 Range/Units White Blood Count 3.7 L 4.4-10.8 10^3/uL Red Blood Count 3.16 L 4.5-5.90 10^6/uL Hemoglobin 10.6 L 13.5-17.5 g/dL Hematocrit 32.1 L 41.0-53.0 % Mean Corpuscular Volume 101.5 H 80.0-100.0 fL Mean Corpuscular Hemoglobin 33.5 H 28.0-32.0 pg Mean Corpuscular Hemoglobin Concent 33.0 32.0-36.0 g/dL Red Cell Distribution Width 13.3 11.8-14.3 % Platelet Count 99 L 140-450 10^3/uL Mean Platelet Volume 8.2 6.9-10.8 fL Neutrophils (%) (Auto) 71.6 37.0-80.0 % Lymphocytes (%) (Auto) 14.7 10.0-50.0 % Monocytes (%) (Auto) 6.5 0.0-12.0 % Eosinophils (%) (Auto) 6.1 0.0-7.0 % Basophils (%) (Auto) 1.1 0.0-2.0 % Neutrophils # (Auto) 2.7 1.6-8.6 10 ^3/uL Lymphocytes # (Auto) 0.6 0.4-5.4 10 ^3/uL Monocytes # (Auto) 0.2 0-1.3 10 ^3/uL Eosinophils # (Auto) 0.2 0-0.8 10 ^3/uL Basophils # (Auto) 0 0-0.2 10 ^3/uL Nucleated Red Blood Cells 0.2 % Sodium Level 143 136-145 mmol/L Potassium Level 4.9 3.5-5.1 mmol/L Chloride Level 105 98-107 mmol/L Carbon Dioxide Level 29 20-31 mmol/L Anion Gap 9 5-15 Blood Urea Nitrogen 60 H 9-23 mg/dL Creatinine 3.72 H 0.700-1.30 mg/dL Glomerular Filtration Rate Calc 18 >90 mL/min BUN/Creatinine Ratio 16.1 10.0-20.0 Serum Glucose 303 H 74-106 mg/dL Calcium Level 8.2 L 8.7-10.4 mg/dL Magnesium Level 2.2 1.6-2.6 mg/dL Total Bilirubin < 0.2 L 0.2-1.0 mg/dL Aspartate Amino Transferase (AST) 26 13-40 U/L Alanine Aminotransferase (ALT) 39 7-40 U/L Alkaline Phosphatase 202 H 46-116 U/L Troponin I High Sensitivity 18 </=54 ng/L Total Protein 5.7 5.7-8.2 g/dL Albumin 3.2 3.2-4.8 g/dL Blood Gas Specimen Type Arterial Blood Gas Sample Site Right radial Blood Gas Patient Temperature 37.0 Arterial Blood Date Drawn [id number] Arterial Blood pH 7.425 7.350-7.450 Arterial Blood Partial Pressure CO2 46.0 35.0-48.0 mmHg Arterial Blood Partial Pressure O2 61.0 L 83.0-108.0 mmHg Arterial Blood HCO3 29.5 H 21.0-28.0 mmol/L Arterial Blood Oxygen Saturation 89.8 L 94.0-98.0 % Arterial Blood Base Excess 4.5 H -2.0-3.0 mmol/L Arterial Blood Oxyhemoglobin 88.3 L 94.0-98.0 % Arterial Blood Carboxyhemoglobin 1.4 0.5-1.5 % Arterial Blood Methemoglobin 0.3 0.0-1.5 % Warner Test Yes Blood Gas Total Hemoglobin 10.60 L 13.5-17.5 g/dL Blood Gas Liter Flow 1.00 Blood Gas Modality Nasal cannula FiO2 % 24.0 Assessment/Plan Assessment/Plan Assessment and Plan #AHRF due to pneumonia -on 2L #CAP, gram +/-, possible aspiration pneumonia considering patient has stroke and is bed-bound -iv ceftriaxone and iv azithromycin -CXR reveals 1. Airspace disease in both lung bases right worse than left 2. Cardiomegaly #CHF systolic/diastolic -not in exacerbation -resume home meds #COPD -stable -duonebs PRN #History of stroke -continue home meds #DM2 -sliding scale insulin #ESRD on HD (TTS) -nephrology consult #Hypertension -resume home meds DVT prophylaxis Heparin 5000 b.i.d. Code status, will discuss with , FULL CODE as of now ( pt is alert but oriented X1 which is his baseline ) Plan discussed with: Patient, Other My Orders Orders - ACOSTA GAN RESIDENT Procedure Category Date Status Time Admit ADMIT 10/01/24 Transmitted 23:28 Oxygen By Nasal RT 10/01/24 Transmitted Cannula 23:28 Stat Ekg For Chest JAMILA 10/01/24 In Process Pain 23:28 Notify Of Changes JAMILA 10/01/24 In Process From Base 23:28 Surgical First Assistant For JAMILA 10/01/24 In Process 24 Hours 23:28 Emergency Dysrhythmia [facility] 10/01/24 In Process Protocol 23:28 Rhythm Strips Once [facility] 10/01/24 In Process Every Shift 23:28 Date of Service: Oct 01, 2024 Billing Provider: SALO PAYTON MD Common Visit Codes: [id number] INP/OBS CARE (HIGH) ACOSTA GAN RESIDENT Oct 01, 2024 23:31 SALO PAYTON MD Oct 02, 2024 19:37
[2024-10-02] MEDS: VANCOMYCIN 1GM/200ML PM 200 ML IV SCH (00:08)
[2024-10-02] MEDS: AZITHROMYCIN 500MG/ 250ML 250 ML IV SCH (01:15)
[2024-10-02] MEDS ORDERED: DEXTROSE (50%) 50ML SYRG IV PRN (02:15)
[2024-10-02] MEDS: hydrALAZINE HCL 10 MG TAB PO ONE (02:35)
--- NOTE | 2024-10-02 04:52 | ECG ---
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
[2024-10-02] MEDS: InsuLIN REG 1unit/0.01ml Soln (100units/ml) SC SCH (06:00)
[2024-10-02 06:01] LABS: Basophils # (auto) 0 10 ^3/uL (0-0.2); Basophils % (auto) 1.1 % (0.0-2.0); Eosinophils # (auto) 0.2 10 ^3/uL (0-0.8); Eosinophils % (auto) 6.3 % (0.0-7.0); Hematocrit 29.1 % (41.0-53.0); Hemoglobin 9.5 g/dL (13.5-17.5); Lymphocytes # (auto) 0.5 10 ^3/uL (0.4-5.4); Lymphocytes % (auto) 15.7 % (10.0-50.0); Mean Corpuscular Hemoglobin 33.2 pg (28.0-32.0); Mean Corpuscular Hgb Conc. 32.8 g/dL (32.0-36.0); Mean Corpuscular Volume 101.2 fL (80.0-100.0); Monocytes # (auto) 0.2 10 ^3/uL (0-1.3); Monocytes % (auto) 8.1 % (0.0-12.0); Neutrophils # (auto) 2.1 10 ^3/uL (1.6-8.6); Neutrophils % (auto) 68.8 % (37.0-80.0); Nucleated Red Blood Cells % 0.1 %; Platelet Count (auto) 91 10^3/uL (140-450); Red Blood Cells 2.87 10^6/uL (4.5-5.90); Red Cell Distribution Width 13.1 % (11.8-14.3)
[2024-10-02] MEDS: ACCU-CHEK COMFORT CURVE STRIP VI SCH (06:03)
[2024-10-02] MEDS: hydrALAZINE HCL 10 MG TAB PO SCH (06:03)
[2024-10-02 06:27] LABS: Chloride 106 mmol/L (98-107); Potassium 4.9 mmol/L (3.5-5.1); Sodium 142 mmol/L (136-145)
[2024-10-02 06:28] LABS: Anion Gap 9 (5-15); Carbon Dioxide 27 mmol/L (20-31)
[2024-10-02 06:33] LABS: Calcium 8.4 mg/dL (8.7-10.4)
[2024-10-02 06:37] LABS: Magnesium 2.2 mg/dL (1.6-2.6)
[2024-10-02 06:41] LABS: BUN/Creatinine Ratio 16.3 (10.0-20.0); Blood Urea Nitrogen 68 mg/dL (9-23); Glucose 397 mg/dL (74-106)
[2024-10-02 07:30] VITALS: PULSE 54; RESP 10; O2SAT 99
[2024-10-02 08:22] LABS: COVID19 ANTIGEN SOFIA FIA NEGATIVE (NEGATIVE)
[2024-10-02 08:23] LABS: Rapid Influenza A Negative (Negative); Rapid Influenza B Negative (Negative)
[2024-10-02] MEDS ORDERED: LEVE500T3 PO (09:37)
[2024-10-02] MEDS: HEPARIN SODIUM (PORCINE) 5000 UNITS/ML 1ML VIAL SC SCH (10:00)
[2024-10-02] MEDS ORDERED: ENOXAPARIN SOD 40 MG/0.4 ML SYRINGE SC SCH (10:00)
[2024-10-02] MEDS: ASPirin 81 mg TAB PO SCH (10:18)
[2024-10-02] MEDS: levETIRAcetam 500 MG TAB PO SCH (10:18)
[2024-10-02] MEDS: cefTRIAXone 1GM/50ML D5W 50 ML IV SCH (10:18)
--- NOTE | 2024-10-02 13:11 | DVHPNRES ---
Progress Note Date Seen: Oct 02, 2024 Resident Creating Document: TREY DRAKE RESIDENT Has the PT tested + for MRSA If YES, has PT been informed?: No Medical Necessity Reason Pt with a Central, PICC or Fol: No Medical Necessity Reason History and Physical History and physical 59-year-old male with past medical history of stroke in 2019 after which patient become alert and oriented times 1 which is baseline, CHF, COPD, diabetes mellitus type 2, end-stage renal disease with dialysis on Saturday, hypertension presented in the ER because of noticed that patient started having trouble breathing and had gurgling sounds for last one day. Patient is alert and oriented x1 in the ER and can not communicate and does not answer to any questions asked and primary communication is done with the . denied any other symptoms Past medical history: stroke in 2019 after which patient become alert and oriented times 1 which is baseline, CHF, COPD, diabetes mellitus type1, end- stage renal disease with dialysis on TThS, hypertension Past surgical history: cholecystectomy Social history:Denied smoking, marijuana, alcohol and any other recreational drugs PN: 10/02/2024 Patient is a 59-year-old male with past medical history significant for end- stage renal disease on hemodialysis every TThS, hypertension, diabetes, CVA, CHF, and COPD, who is admitted secondary to shortness of breath and hypoxemia. On admission Nephrology is consulted to manage hemodialysis. Patient was sleeping at the time of my assessment. History taken from the at bedside. said she noted an unusual sound from during his breathing and it sound raspy. So, she brought him to the ED to be evaluated. Initial blood work showed wbc of 3.7--> 3.0, hgb A1c:7.7. Chest x-ray showed Airspace disease in both lung bases right worse than left. Cardiomegaly Subjective Review of Systems Unable to enquire as patient was sleeping Objective vital signs Vital Sign Date Time Temp Pulse Resp B/P (MAP) Pulse Ox O2 Delivery O2 Flow Rate FiO2 10/02/24 12:20 166/44 10/02/24 11:09 55 13 100 10/02/24 07:30 97.2 97.2 10/02/24 07:30 Nasal Cannula* 2 28 Total Intake and Output 10/01/24 10/01/24 10/02/24 15:00 23:00 07:00 Intake Total 450 ml Balance 450 ml medications Current Medications Medications Dose Ordered Sig/Tomasa Route Start Time Stop Time Status Last Admin Dose Admin Ceftriaxone Sodium 50 ml @ 100 mls/hr DAILY IV 10/02/24 10:00 10/02/24 10:18 100 MLS/HR Azithromycin 250 ml @ 125 mls/hr DAILY IV 10/02/24 01:15 10/02/24 10:48 125 MLS/HR Hydralazine HCl 10 mg Q6HR PO 10/02/24 06:00 10/02/24 12:20 10 MG Diagnostic Test (Pha) 1 strip Q6HR 10/02/24 06:00 10/02/24 12:14 1 STRIP Insulin Human Regular Q6HR SC 10/02/24 06:00 Dextrose 50 ml UD PRN IV 10/02/24 02:15 Aspirin 81 mg DAILY PO 10/02/24 10:00 10/02/24 10:18 81 MG Atorvastatin Calcium 40 mg HS PO 10/02/24 22:00 Heparin Sodium (Porcine) 5,000 units Q12HR SC 10/02/24 10:00 Levetiracetam 500 mg BID PO 10/02/24 10:00 10/02/24 10:18 500 MG Examination General Appearance: Alert, Oriented X3, Cooperative, No acute distress, S leeping HEENT: sleeping Respiratory: Crackles Cardiovascular: Regular rate, Normal S1, Normal S2, No murmurs, no chest wall tenderness Abdominal: NO distention, no tenderness, bowel sounds present, no scars noted Extremities: left leg externally rotated, left arm flexed and weak Skin: Rashes on his right upper extremity Neuro: defered Psych/Mental Status: Mental status NL, Mood NL laboratory and microbiology Laboratory Tests 10/02/24 05:40 Test 10/02/24 05:40 Range/Units Serum Glucose 397 H 74-106 mg/dL Problem List/Assessment/Plan Problem List/Assessment/Plan Assessment AHRF due to possible aspiration pneumonia --> on 2L, Spo2 100% CAP gram +/-, possible aspiration pneumonia considering patient has stroke and is bed-bound --> IV Ceftriaxone and iv azithromycin --> CXR revealed Airspace disease in both lung bases right worse than left CHF systolic/diastolic Cardiomegaly -not in exacerbation -resume home meds COPD --> stable --> duonebs PRN History of stroke with residual left sided weakness -->continue home meds Diabetes type I since age 18 -sliding scale insulin ESRD on HD (TTS) --> Nephrology consult, [facility] --> for HD tomorrow Hypertension --> resume home meds DVT prophylaxis Heparin 5000 b.i.d. Goal of care discussed for 18 minutes. Code status per : FULL CODE Case and plan discussed + Dr. Alexander Plan discussed with: Patient My Orders My Orders Orders - TREY DRAKE Procedure Category Date Status Time Levetiracetam Tablet PHA 10/02/24 In Process (Keppra Tablet) 10:00 * Wound Consult CONS 10/02/24 Transmitted Date of Service: Oct 02, 2024 Billing Provider: PAUL ALEXANDER MD Common Visit Codes: [id number] INP/OBS CARE(HIGH) TREY DRAKE Oct 02, 2024 13:11 PAUL ALEXANDER MD Oct 07, 2024 21:52
--- NOTE | 2024-10-02 18:13 | DVHINCON2 ---
Date of service: Oct 02, [address] Tatum Reason for Consultation End-stage renal disease to manage hemodialysis History of Present Illness Patient is a 59-year-old male with past medical history significant for end- stage renal disease on hemodialysis every Saturday and Saturday, hypertension, diabetes, CVA, CHF, and COPD, who is admitted secondary to shortness of breath and hypoxemia. On admission Nephrology is consulted to manage hemodialysis Past Medical History End-stage renal disease on hemodialysis hypertension, diabetes, CVA, CHF, COPD, Past Surgical History Hemodialysis catheter Allergies: Coded Allergies: NO KNOWN ALLERGIES (Unverified , 10/01/24) Home Meds Reported Medications Amlodipine Besylate (Amlodipine Besylate) 10 Mg Tab, 1 TAB PO DAILY 10/02/24 Levetiracetam (Levetiracetam) 500 Mg Tab, 1 TAB PO BID 10/02/24 Current Medications Current Medications Medications (Trade) Dose Ordered Sig/Tomasa Route PRN Reason Start Time Stop Time Status Last Admin Atorvastatin Calcium (Lipitor) 40 mg HS PO 10/02/24 22:00 10/02/24 22:17 Amlodipine Besylate (Norvasc Tablet) 10 mg DAILY PO 10/03/24 10:00 Review of Systems All 12 item review of systems reviewed with the patient nonsignificant except what is mentioned in the history of present illness H&P Exam Vital Signs/I&O Vital Sign Date Time Temp Pulse Resp B/P (MAP) Pulse Ox O2 Delivery O2 Flow Rate FiO2 10/03/24 10:00 163/74 10/03/24 08:00 62 10/03/24 06:10 14 93 10/02/24 22:37 Nasal Cannula* 2 28 10/02/24 22:32 97.8 97.8 Physical Exam Patient is awake alert, at the bedside Lungs clear to auscultation bilaterally Cardiac exam regular rate and rhythm GI soft bowel sounds are present was normal Extremity 1+ edema Neuro patient is awake and alert Labs/Diagnostic Data Labs/Diagnostic Data Laboratory Tests Test 10/03/24 08:00 10/02/24 18:42 10/02/24 18:10 10/02/24 11:51 Range/Units White Blood Count 4.0 #L 4.4-10.8 10^3/uL Red Blood Count 3.22 L 4.5-5.90 10^6/uL Hemoglobin 10.4 L 13.5-17.5 g/dL Hematocrit 31.8 L 41.0-53.0 % Mean Corpuscular Volume 98.6 80.0-100.0 fL Mean Corpuscular Hemoglobin 32.3 H 28.0-32.0 pg Mean Corpuscular Hemoglobin Concent 32.7 32.0-36.0 g/dL Red Cell Distribution Width 13.2 11.8-14.3 % Platelet Count 116 L 140-450 10^3/uL Mean Platelet Volume 8.4 6.9-10.8 fL Neutrophils (%) (Auto) 65.9 37.0-80.0 % Lymphocytes (%) (Auto) 16.8 10.0-50.0 % Monocytes (%) (Auto) 7.9 0.0-12.0 % Eosinophils (%) (Auto) 8.6 H 0.0-7.0 % Basophils (%) (Auto) 0.8 0.0-2.0 % Neutrophils # (Auto) 2.7 1.6-8.6 10 ^3/uL Lymphocytes # (Auto) 0.7 0.4-5.4 10 ^3/uL Monocytes # (Auto) 0.3 0-1.3 10 ^3/uL Eosinophils # (Auto) 0.3 0-0.8 10 ^3/uL Basophils # (Auto) 0 0-0.2 10 ^3/uL Nucleated Red Blood Cells 0.0 % Sodium Level 141 136-145 mmol/L Potassium Level 5.6 *H 3.5-5.1 mmol/L Chloride Level 105 98-107 mmol/L Carbon Dioxide Level 26 20-31 mmol/L Anion Gap 10 5-15 Blood Urea Nitrogen 96 #*H 9-23 mg/dL Creatinine 5.27 H 0.700-1.30 mg/dL Glomerular Filtration Rate Calc 12 >90 mL/min BUN/Creatinine Ratio 18.2 10.0-20.0 Serum Glucose 60 #L 74-106 mg/dL Calcium Level 8.7 8.7-10.4 mg/dL Total Bilirubin < 0.2 L 0.2-1.0 mg/dL Aspartate Amino Transferase (AST) 18 13-40 U/L Alanine Aminotransferase (ALT) 34 7-40 U/L Alkaline Phosphatase 177 H 46-116 U/L Total Protein 6.1 5.7-8.2 g/dL Albumin 3.5 3.2-4.8 g/dL Phosphorus Level 5.5 H 2.4-5.1 mg/dL Magnesium Level 2.3 1.6-2.6 mg/dL POC Glucose 165 H 262 H 70-106 mg/dl Test 10/02/24 06:38 10/02/24 06:02 10/02/24 05:40 10/01/24 23:40 Range/Units Influenza Type A Antigen Negative Negative Influenza Type B Antigen Negative Negative SARS-CoV-2 Antigen (Rapid) Negative NEGATIVE POC Glucose 316 H 70-106 mg/dl White Blood Count 3.0 L 4.4-10.8 10^3/uL Red Blood Count 2.87 L 4.5-5.90 10^6/uL Hemoglobin 9.5 L 13.5-17.5 g/dL Hematocrit 29.1 L 41.0-53.0 % Mean Corpuscular Volume 101.2 H 80.0-100.0 fL Mean Corpuscular Hemoglobin 33.2 H 28.0-32.0 pg Mean Corpuscular Hemoglobin Concent 32.8 32.0-36.0 g/dL Red Cell Distribution Width 13.1 11.8-14.3 % Platelet Count 91 L 140-450 10^3/uL Mean Platelet Volume 8.0 6.9-10.8 fL Neutrophils (%) (Auto) 68.8 37.0-80.0 % Lymphocytes (%) (Auto) 15.7 10.0-50.0 % Monocytes (%) (Auto) 8.1 0.0-12.0 % Eosinophils (%) (Auto) 6.3 0.0-7.0 % Basophils (%) (Auto) 1.1 0.0-2.0 % Neutrophils # (Auto) 2.1 1.6-8.6 10 ^3/uL Lymphocytes # (Auto) 0.5 0.4-5.4 10 ^3/uL Monocytes # (Auto) 0.2 0-1.3 10 ^3/uL Eosinophils # (Auto) 0.2 0-0.8 10 ^3/uL Basophils # (Auto) 0 0-0.2 10 ^3/uL Nucleated Red Blood Cells 0.1 % Sodium Level 142 136-145 mmol/L Potassium Level 4.9 3.5-5.1 mmol/L Chloride Level 106 98-107 mmol/L Carbon Dioxide Level 27 20-31 mmol/L Anion Gap 9 5-15 Blood Urea Nitrogen 68 H 9-23 mg/dL Creatinine 4.17 H 0.700-1.30 mg/dL Glomerular Filtration Rate Calc 16 >90 mL/min BUN/Creatinine Ratio 16.3 10.0-20.0 Serum Glucose 397 H 74-106 mg/dL Hemoglobin A1c 7.7 H <5.7 % A1C Calcium Level 8.4 L 8.7-10.4 mg/dL Magnesium Level 2.2 1.6-2.6 mg/dL Vitamin D 25-Hydroxy 24.0 L 30.0-100 ng/mL Lactic Acid Level 1.1 0.4-2.0 mmol/L Test 10/01/24 21:08 10/01/24 21:01 Range/Units White Blood Count 3.7 L 4.4-10.8 10^3/uL Red Blood Count 3.16 L 4.5-5.90 10^6/uL Hemoglobin 10.6 L 13.5-17.5 g/dL Hematocrit 32.1 L 41.0-53.0 % Mean Corpuscular Volume 101.5 H 80.0-100.0 fL Mean Corpuscular Hemoglobin 33.5 H 28.0-32.0 pg Mean Corpuscular Hemoglobin Concent 33.0 32.0-36.0 g/dL Red Cell Distribution Width 13.3 11.8-14.3 % Platelet Count 99 L 140-450 10^3/uL Mean Platelet Volume 8.2 6.9-10.8 fL Neutrophils (%) (Auto) 71.6 37.0-80.0 % Lymphocytes (%) (Auto) 14.7 10.0-50.0 % Monocytes (%) (Auto) 6.5 0.0-12.0 % Eosinophils (%) (Auto) 6.1 0.0-7.0 % Basophils (%) (Auto) 1.1 0.0-2.0 % Neutrophils # (Auto) 2.7 1.6-8.6 10 ^3/uL Lymphocytes # (Auto) 0.6 0.4-5.4 10 ^3/uL Monocytes # (Auto) 0.2 0-1.3 10 ^3/uL Eosinophils # (Auto) 0.2 0-0.8 10 ^3/uL Basophils # (Auto) 0 0-0.2 10 ^3/uL Nucleated Red Blood Cells 0.2 % Sodium Level 143 136-145 mmol/L Potassium Level 4.9 3.5-5.1 mmol/L Chloride Level 105 98-107 mmol/L Carbon Dioxide Level 29 20-31 mmol/L Anion Gap 9 5-15 Blood Urea Nitrogen 60 H 9-23 mg/dL Creatinine 3.72 H 0.700-1.30 mg/dL Glomerular Filtration Rate Calc 18 >90 mL/min BUN/Creatinine Ratio 16.1 10.0-20.0 Serum Glucose 303 H 74-106 mg/dL Calcium Level 8.2 L 8.7-10.4 mg/dL Magnesium Level 2.2 1.6-2.6 mg/dL Total Bilirubin < 0.2 L 0.2-1.0 mg/dL Aspartate Amino Transferase (AST) 26 13-40 U/L Alanine Aminotransferase (ALT) 39 7-40 U/L Alkaline Phosphatase 202 H 46-116 U/L Troponin I High Sensitivity 18 </=54 ng/L Total Protein 5.7 5.7-8.2 g/dL Albumin 3.2 3.2-4.8 g/dL Blood Gas Specimen Type Arterial Blood Gas Sample Site Right radial Blood Gas Patient Temperature 37.0 Arterial Blood Date Drawn [id number] Arterial Blood pH 7.425 7.350-7.450 Arterial Blood Partial Pressure CO2 46.0 35.0-48.0 mmHg Arterial Blood Partial Pressure O2 61.0 L 83.0-108.0 mmHg Arterial Blood HCO3 29.5 H 21.0-28.0 mmol/L Arterial Blood Oxygen Saturation 89.8 L 94.0-98.0 % Arterial Blood Base Excess 4.5 H -2.0-3.0 mmol/L Arterial Blood Oxyhemoglobin 88.3 L 94.0-98.0 % Arterial Blood Carboxyhemoglobin 1.4 0.5-1.5 % Arterial Blood Methemoglobin 0.3 0.0-1.5 % Warner Test Yes Blood Gas Total Hemoglobin 10.60 L 13.5-17.5 g/dL Blood Gas Liter Flow 1.00 Blood Gas Modality Nasal cannula FiO2 % 24.0 Assessment End-stage renal disease on hemodialysis Acute respiratory failure Congestive heart failure exacerbation CVA Diabetes mellitus type 2 Hypertension Anemia of chronic kidney disease Recommendations Hemodialysis tomorrow Epogen 35819 subQ with hemodialysis Resume home medication Blood pressure control Insulin sliding scale Renal diet We will continue to follow Patient seen and examined by myself. I discussed my plan of care with the at the bedside and the primary nurse I would like to thank Dr. Tatum for the consult, will follow Plan discussed with: Patient, Spouse NARCISO JONES MD Oct 02, 2024 18:13
[2024-10-02 19:34] LABS: Magnesium 2.3 mg/dL (1.6-2.6)
[2024-10-02 19:37] LABS: Phosphorus 5.5 mg/dL (2.4-5.1)
[2024-10-02] MEDS: ATORVASTATIN 20 MG TAB PO SCH (22:17)
[2024-10-02 22:37] VITALS: PULSE 58; RESP 12; O2SAT 99
[2024-10-03] VITALS (7 sets, daily range): BP systolic 155–177; BP diastolic 36–56; PULSE 57–84; RESP 14–18; TEMP 98.1–98.5; O2SAT 91–100
[2024-10-03] MEDS: hydrALAZINE HCL 20 MG/ML VL IV ONE (03:04)
[2024-10-03] MEDS: SODIUM CHL 0.9% 1000 ML BAG XX ONE (07:00)
[2024-10-03 08:49] LABS: Basophils # (auto) 0 10 ^3/uL (0-0.2); Basophils % (auto) 0.8 % (0.0-2.0); Eosinophils # (auto) 0.3 10 ^3/uL (0-0.8); Eosinophils % (auto) 8.6 % (0.0-7.0); Hematocrit 31.8 % (41.0-53.0); Hemoglobin 10.4 g/dL (13.5-17.5); Lymphocytes # (auto) 0.7 10 ^3/uL (0.4-5.4); Lymphocytes % (auto) 16.8 % (10.0-50.0); Mean Corpuscular Hemoglobin 32.3 pg (28.0-32.0); Mean Corpuscular Hgb Conc. 32.7 g/dL (32.0-36.0); Mean Corpuscular Volume 98.6 fL (80.0-100.0); Monocytes # (auto) 0.3 10 ^3/uL (0-1.3); Monocytes % (auto) 7.9 % (0.0-12.0); Neutrophils # (auto) 2.7 10 ^3/uL (1.6-8.6); Neutrophils % (auto) 65.9 % (37.0-80.0); Platelet Count (auto) 116 10^3/uL (140-450); Red Blood Cells 3.22 10^6/uL (4.5-5.90); Red Cell Distribution Width 13.2 % (11.8-14.3)
[2024-10-03 08:53] LABS: Alanine Aminotransferase 34 U/L (7-40); Albumin 3.5 g/dL (3.2-4.8); Anion Gap 10 (5-15); Aspartate Aminotransferase 18 U/L (13-40); BUN/Creatinine Ratio 18.2 (10.0-20.0); Calcium 8.7 mg/dL (8.7-10.4); Carbon Dioxide 26 mmol/L (20-31); Chloride 105 mmol/L (98-107); Sodium 141 mmol/L (136-145); Total Protein 6.1 g/dL (5.7-8.2)
[2024-10-03 09:02] LABS: Alkaline Phosphatase 177 U/L (46-116); Bilirubin, Total < 0.2 mg/dL (0.2-1.0); Glucose 60 mg/dL (74-106)
[2024-10-03 09:05] LABS: Blood Urea Nitrogen 96 mg/dL (9-23); Potassium 5.6 mmol/L (3.5-5.1)
[2024-10-03] MEDS: amLODIPine BESYLATE 5 MG TAB PO SCH (10:00)
--- NOTE | 2024-10-03 11:29 | DVHPN2 ---
Progress Note Date Seen: Oct 03, 2024 Has the PT tested + for MRSA If YES, has PT been informed?: No Medical Necessity Reason Pt with a Central, PICC or Fol: No Subjective Patient reports: No new complaints Other Systems: Patient seen and examined by myself today in follow-up, patient remained in the ER, at the bedside Objective vital signs Vital Sign Date Time Temp Pulse Resp B/P (MAP) Pulse Ox O2 Delivery O2 Flow Rate FiO2 10/03/24 10:00 163/74 10/03/24 08:00 62 10/03/24 06:10 14 93 10/02/24 22:37 Nasal Cannula* 2 28 10/02/24 22:32 97.8 97.8 medications Current Medications Medications Dose Ordered Sig/Tomasa Route Start Time Stop Time Status Last Admin Dose Admin Ceftriaxone Sodium 50 ml @ 100 mls/hr DAILY IV 10/02/24 10:00 10/03/24 10:23 Azithromycin 250 ml @ 125 mls/hr DAILY IV 10/02/24 01:15 10/03/24 10:44 Hydralazine HCl 10 mg Q6HR PO 10/02/24 06:00 10/02/24 12:20 Diagnostic Test (Pha) 1 strip Q6HR 10/02/24 06:00 10/02/24 18:10 Insulin Human Regular Q6HR SC 10/02/24 06:00 Dextrose 50 ml UD PRN IV 10/02/24 02:15 Aspirin 81 mg DAILY PO 10/02/24 10:00 10/03/24 10:23 Atorvastatin Calcium 40 mg HS PO 10/02/24 22:00 10/02/24 22:17 Heparin Sodium (Porcine) 5,000 units Q12HR SC 10/02/24 10:00 10/03/24 10:47 Levetiracetam 500 mg BID PO 10/02/24 10:00 10/03/24 10:22 Amlodipine Besylate 10 mg DAILY PO 10/03/24 10:00 Examination: LUNGS:Normal, CVS:Normal, MSK:Abnormal laboratory and microbiology Laboratory Tests 10/03/24 08:00 Test 10/03/24 08:00 Range/Units Serum Glucose 60 #L 74-106 mg/dL Microbiology Date/Time Source Procedure Growth Status 10/01/24 23:40 Blood Blood Culture - Preliminary NO GROWTH AFTER 24 HOURS OF INCUBATION. Resulted Problem List/Assessment/Plan Problem List/Assessment/Plan End-stage renal disease on hemodialysis Acute respiratory failure Congestive heart failure exacerbation CVA Diabetes mellitus type 2 Hypertension Hyperkalemia Anemia of chronic kidney disease Recommendations Hemodialysis today for fluid removal Epogen 21733 subQ with hemodialysis Resume home medication Blood pressure control Insulin sliding scale Renal diet Lokelma 10 g p.o. q.8 hours x3 doses We will continue to follow Plan discussed with: Patient, Spouse My Orders My Orders Orders - NARCISO JONES MD Procedure Category Date Status Time Document Fluid Input JAMILA 10/03/24 In Process And Outpu 07:00 Epoetin Julius-Epbx PHA 10/03/24 In Process (Retacrit) 21:00 Hepatitis B Surface LAB 10/02/24 In Process Antigen 18:13 Sodium Zirconium PHA 10/03/24 Transmitted Cyclosilicate 14:00 Hemodialysis Orders ORDERS 10/03/24 Verified 11:28 NARCISO JONES MD Oct 03, 2024 11:29
[2024-10-03] MEDS: SODIUM ZIRCONIUM CYCL 10 GM PAK PO SCH (15:19)
[2024-10-03] MEDS: SODIUM ZIRCONIUM CYCL 10 GM PAK PO ONE (16:30)
--- NOTE | 2024-10-03 16:39 | DVHPNRES ---
Progress Note Date Seen: Oct 03, 2024 Resident Creating Document: TREY DRAKE RESIDENT Has the PT tested + for MRSA If YES, has PT been informed?: No Medical Necessity Reason Pt with a Central, PICC or Fol: No Medical Necessity Reason History and physical 59-year-old male with past medical history of stroke in 2019 after which patient become alert and oriented times 1 which is baseline, CHF, COPD, diabetes mellitus type 2, end-stage renal disease with dialysis on Saturday, hypertension presented in the ER because of noticed that patient started having trouble breathing and had gurgling sounds for last one day. Patient is alert and oriented x1 in the ER and can not communicate and does not answer to any questions asked and primary communication is done with the . denied any other symptoms Past medical history: stroke in 2019 after which patient become alert and oriented times 1 which is baseline, CHF, COPD, diabetes mellitus type1, end- stage renal disease with dialysis on TThS, hypertension Past surgical history: cholecystectomy Social history: Denied smoking, marijuana, alcohol and any other recreational drugs PN: 10/02/2024 Patient is a 59-year-old male with past medical history significant for end- stage renal disease on hemodialysis every TThS, hypertension, diabetes, CVA, CHF, and COPD, who is admitted secondary to shortness of breath and hypoxemia. On admission Nephrology is consulted to manage hemodialysis. Patient was sleeping at the time of my assessment. History taken from the at bedside. said she noted an unusual sound from during his breathing and it sound raspy. So, she brought him to the ED to be evaluated. Initial blood work showed wbc of 3.7--> 3.0, hgb A1c:7.7. Chest x-ray showed Airspace disease in both lung bases right worse than left. Cardiomegaly PN 10/03/2024 Patient is awake and very alert and oriented. He know he is in the hospital and he answers all question. by the beside. She gives the patient Tresiba 12 UNITS (Insulin) from home because she said she feels more comfortable with it than the regular insulin at the hospital and also she has been giving his the Tresiba for years. She gives the Tresiba 12 unit daily in the morning. This morning patient's FBS was 50. She gave him some protein and oat meal. We spoke to the patient that we will follow protocol and give the patient lantus 6 units and lispros 2 unit per each meal. was a little uncomfortable but we made her know that we will keep a close eye on his blood sugar. Patient was supposed to have dialysis today, but the dialysis nurses could not make it today. So, hopefully tomorrow. In the mean time, his potassium is 5.6 and BUN 96. Will give patient lokelma and Albuterol. No lasix because patient is anuric. Subjective Review of Systems Constitutional: Denies fever no chills no feeling of malaise HEENT: Denies headache, ear pain, ear discharges, conjunctivitis, nasal discharge throat pain Cardiovascular: Denies chest pain, palpitation, orthopnea, PND, or pedal edema Respiratory: Denies shortness of breath, cough cough, sputum production, hemoptysis, GI: Denies abdominal pain, nausea, vomiting, diarrhea, hematemesis, hematochezia, : Denies frequency, urgency, hematuria, Endocrine: Denies unintentional weight gain or weight loss, feeling of hot flashes, Randal: Denies easy bruising, bleeding disorders, epistaxis Musculoskeletal: Denies joint pains, muscle aches Psych: No evidence of depression, paul, suicidal ideation Objective vital signs Vital Sign Date Time Temp Pulse Resp B/P (MAP) Pulse Ox O2 Delivery O2 Flow Rate FiO2 10/03/24 14:00 61 13 173/38 (83) 93 10/03/24 12:00 98.0 98.0 10/03/24 07:35 Nasal Cannula* 2 28 medications Current Medications Medications Dose Ordered Sig/Tomasa Route Start Time Stop Time Status Last Admin Dose Admin Ceftriaxone Sodium 50 ml @ 100 mls/hr DAILY IV 10/02/24 10:00 10/03/24 10:23 100 MLS/HR Azithromycin 250 ml @ 125 mls/hr DAILY IV 10/02/24 01:15 10/03/24 10:44 125 MLS/HR Hydralazine HCl 10 mg Q6HR PO 10/02/24 06:00 10/03/24 12:47 10 MG Diagnostic Test (Pha) 1 strip Q6HR 10/02/24 06:00 10/03/24 12:00 1 STRIP Insulin Human Regular Q6HR SC 10/02/24 06:00 Dextrose 50 ml UD PRN IV 10/02/24 02:15 Aspirin 81 mg DAILY PO 10/02/24 10:00 10/03/24 10:23 81 MG Atorvastatin Calcium 40 mg HS PO 10/02/24 22:00 10/02/24 22:17 40 MG Heparin Sodium (Porcine) 5,000 units Q12HR SC 10/02/24 10:00 10/03/24 10:47 5,000 UNITS Levetiracetam 500 mg BID PO 10/02/24 10:00 10/03/24 10:22 500 MG Amlodipine Besylate 10 mg DAILY PO 10/03/24 10:00 Zirconium Oxide 10 gm Q8HR PO 10/03/24 14:00 10/04/24 06:01 10/03/24 15:19 10 GM Examination General Appearance: Alert, Oriented X3, Cooperative, No acute distress No acute distress HEENT: Atraumatic, PERRLA, EOMI, Mucous membrane moist/pink Respiratory: Clear to auscultation, Normal air movement Cardiovascular: Regular rate, Normal S1, Normal S2, No murmurs, no chest wall tenderness Abdominal: NO distention, no tenderness, bowel sounds present, no scars noted Extremities: Left sided weakness from stroke Skin: No rashes, No breakdown, No significant lesion Neuro: bed and wheel chair bound, slightly slurredspeech,Sensation intact, mouth right sided deviated on speaking Psych/Mental Status: Mental status NL, Mood NL laboratory and microbiology Laboratory Tests 10/03/24 08:00 Test 10/03/24 08:00 Range/Units Serum Glucose 60 #L 74-106 mg/dL Microbiology Date/Time Source Procedure Growth Status 10/02/24 16:56 Nose MRSA Screen - Final Complete 10/01/24 23:40 Blood Blood Culture - Preliminary NO GROWTH AFTER 24 HOURS OF INCUBATION. Resulted Problem List/Assessment/Plan Problem List/Assessment/Plan Assessment Acute hypoxic respiratory failure due to possible aspiration pneumonia --> on 2L, Spo2 100% CAP gram +/-, possible aspiration pneumonia considering patient has stroke and is bed-bound --> IV Ceftriaxone and iv azithromycin --> CXR revealed Airspace disease in both lung bases right worse than left CHF systolic/diastolic Cardiomegaly -not in exacerbation -resume home meds COPD --> stable --> duonebs PRN History of stroke with residual left sided weakness -->continue home meds Diabetes type I since age 18 -sliding scale insulin ESRD on HD (TTS) --> Nephrology consult, [facility] --> for HD tomorrow Hypertension --> resume home meds DVT prophylaxis Heparin 5000 b.i.d. Note: is giving patient home insulin (Tresiba) 12 unit. Will stop that tomorrow 10/04/2024 and give him Lantus 6 units and Lispros 2 units per meal will add 75% Glucerna and 25% Goal of care discussed for 18 minutes. Code status per : FULL CODE Case and plan discussed + Dr. Alexander Plan discussed with: Patient, Spouse, Other (Nurse) My Orders My Orders Orders - TREY DRAKE Procedure Category Date Status Time Amlodipine Tablet PHA 10/03/24 In Process (Norvasc Tablet) 10:00 Date of Service: Oct 03, 2024 Billing Provider: PAUL ALEXANDER MD Common Visit Codes: [id number] INP/OBS CARE(HIGH) TREY DRAKE RESIDENT Oct 03, 2024 16:39 PAUL ALEXANDER MD Oct 07, 2024 22:04
[2024-10-03] MEDS: ALBUTEROL SULF 2.5 MG/0.5ML(0.5%) NEB SOLN NEB ONE (16:57)
[2024-10-03] MEDS: EPOETIN ALFA-EPBX 10,000 UNIT/1ML VIAL SC ONE (22:34)
[2024-10-04] VITALS (8 sets, daily range): BP systolic 146–190; BP diastolic 34–60; PULSE 59–81; RESP 16–20; TEMP 97.5–98.2; O2SAT 90–98
[2024-10-04] MEDS: LACTULOSE 20Gm/30ML SOLN PO ONE (00:47)
[2024-10-04 08:56] LABS: Basophils # (auto) 0 10 ^3/uL (0-0.2); Eosinophils # (auto) 0.3 10 ^3/uL (0-0.8); Monocytes # (auto) 0.3 10 ^3/uL (0-1.3)
[2024-10-04 08:57] LABS: Basophils % (auto) 0.9 % (0.0-2.0); Eosinophils % (auto) 8.9 % (0.0-7.0); Hematocrit 28.3 % (41.0-53.0); Hemoglobin 9.2 g/dL (13.5-17.5); Lymphocytes # (auto) 0.7 10 ^3/uL (0.4-5.4); Lymphocytes % (auto) 19.8 % (10.0-50.0); Mean Corpuscular Hemoglobin 34.1 pg (28.0-32.0); Mean Corpuscular Hgb Conc. 32.6 g/dL (32.0-36.0); Mean Corpuscular Volume 104.5 fL (80.0-100.0); Neutrophils # (auto) 2.2 10 ^3/uL (1.6-8.6); Neutrophils % (auto) 62.4 % (37.0-80.0); Nucleated Red Blood Cells % 0.1 %; Platelet Count (auto) 102 10^3/uL (140-450); Red Blood Cells 2.71 10^6/uL (4.5-5.90); Red Cell Distribution Width 13.6 % (11.8-14.3); White Blood Cell 3.6 10^3/uL (4.4-10.8)
[2024-10-04 09:04] LABS: Chloride 105 mmol/L (98-107); Sodium 138 mmol/L (136-145)
[2024-10-04 09:05] LABS: Anion Gap 11 (5-15); Carbon Dioxide 22 mmol/L (20-31)
[2024-10-04 09:11] LABS: BUN/Creatinine Ratio 13.4 (10.0-20.0)
[2024-10-04 09:17] LABS: Calcium 8.4 mg/dL (8.7-10.4); Glucose 133 mg/dL (74-106)
[2024-10-04 09:19] LABS: Blood Urea Nitrogen 84 mg/dL (9-23); Potassium 5.8 mmol/L (3.5-5.1)
[2024-10-04] MEDS: InsuLIN REG 1unit/0.01ml Soln (100units/ml) IV ONE (10:00)
[2024-10-04] MEDS ORDERED: DEXTROSE (50%) 50ML SYRG IV PRN (10:00)
[2024-10-04] MEDS ORDERED: SODIUM ZIRCONIUM CYCL 10 GM PAK PO ONE (10:00)
--- NOTE | 2024-10-04 10:07 | DVHPN2 ---
Progress Note Date Seen: Oct 04, 2024 Has the PT tested + for MRSA If YES, has PT been informed?: No Medical Necessity Reason Pt with a Central, PICC or Fol: No Subjective Patient reports: No new complaints Other Systems: Patient seen and examined by myself today in follow-up Patient examined hemodialysis, blood pressure stable Objective vital signs Vital Sign Date Time Temp Pulse Resp B/P (MAP) Pulse Ox O2 Delivery O2 Flow Rate FiO2 10/04/24 08:00 80 18 96 Room Air* 0 21 10/04/24 06:41 159/51 10/04/24 05:00 98.2 98.2 Total Intake and Output 10/03/24 10/03/24 10/04/24 15:00 23:00 07:00 Intake Total 300 ml 50 ml 40 ml Balance 300 ml 50 ml 40 ml medications Current Medications Medications Dose Ordered Sig/Tomasa Route Start Time Stop Time Status Last Admin Dose Admin Ceftriaxone Sodium 50 ml @ 100 mls/hr DAILY IV 10/02/24 10:00 10/03/24 10:23 100 MLS/HR Azithromycin 250 ml @ 125 mls/hr DAILY IV 10/02/24 01:15 10/03/24 10:44 125 MLS/HR Hydralazine HCl 10 mg Q6HR PO 10/02/24 06:00 10/04/24 06:41 10 MG Dextrose 50 ml UD PRN IV 10/02/24 02:15 Aspirin 81 mg DAILY PO 10/02/24 10:00 10/03/24 10:23 81 MG Atorvastatin Calcium 40 mg HS PO 10/02/24 22:00 10/03/24 22:33 40 MG Heparin Sodium (Porcine) 5,000 units Q12HR SC 10/02/24 10:00 10/03/24 22:35 5,000 UNITS Levetiracetam 500 mg BID PO 10/02/24 10:00 10/03/24 22:33 500 MG Amlodipine Besylate 10 mg DAILY PO 10/03/24 10:00 Insulin Glargine 5 units DAILY@1000 SC 10/04/24 10:00 UNV Diagnostic Test (Pha) 1 strip ACHS 10/04/24 11:30 UNV Dextrose 50 ml UD PRN IV 10/04/24 10:00 UNV Insulin Human Lispro 2 units AC SC 10/04/24 11:30 UNV Examination: LUNGS:Normal, CVS:Normal, MSK:Abnormal laboratory and microbiology Laboratory Tests 10/04/24 08:44 Test 10/04/24 08:44 Range/Units Serum Glucose 133 H 74-106 mg/dL Microbiology Date/Time Source Procedure Growth Status 10/02/24 16:56 Nose MRSA Screen - Final Complete 10/01/24 23:40 Blood Blood Culture - Preliminary NO GROWTH AFTER 48 HOURS OF INCUBATION. Resulted Problem List/Assessment/Plan Problem List/Assessment/Plan End-stage renal disease on hemodialysis Acute respiratory failure Congestive heart failure exacerbation CVA Diabetes mellitus type 2 Hypertension Hyperkalemia Anemia of chronic kidney disease Recommendations Continue with UF to 3 L as tolerated Epogen 42876 subQ with hemodialysis Resume home medication Blood pressure control Insulin sliding scale Renal diet Lokelma 10 g p.o. q.8 hours x3 doses We will continue to follow Plan discussed with: Patient, Spouse My Orders My Orders Orders - NARCISO JONES MD Procedure Category Date Status Time Hemodialysis Orders ORDERS 10/04/24 Transmitted 11:28 NARCISO JONES MD Oct 04, 2024 10:07
[2024-10-04] MEDS: SODIUM ZIRCONIUM CYCL 10 GM PAK PO ONE (11:32)
[2024-10-04] MEDS: ACCU-CHEK COMFORT CURVE STRIP VI SCH (11:35)
[2024-10-04] MEDS: INSULIN LANTUS (GLARGINE) 1 /0.01ml (100units/ml) SC SCH (11:46)
[2024-10-04] MEDS: INSULIN LISPRO (HUMAN) 100 UNITS/ML ML SC SCH (11:47)
--- NOTE | 2024-10-04 14:33 | DVHPN2 ---
Assessment/Plan Assessment/Plan Progress note 59-year-old male with past medical history of stroke in 2019 after which patient become alert and oriented times 1 which is baseline, CHF, COPD, diabetes mellitus type 2, end-stage renal disease with dialysis on Saturday, hypertension presented in the ER because of noticed that patient started having trouble breathing and had gurgling sounds for last one day. seen today during round, improving. still hyperkalemic, pending dialysis physical exam cooperative L side resiudal dysarthria baseline s1 s2 rrr abdomen soft clear breath sounds no le edema labs ekg imaging reviwed assessment and plan Acute hypoxic respiratory failure due to possible aspiration pneumonia --> on 2L, Spo2 100% CAP gram +/-, possible aspiration pneumonia considering patient has stroke and is bed-bound --> IV Ceftriaxone and iv azithromycin --> CXR revealed Airspace disease in both lung bases right worse than left CHF systolic/diastolic Cardiomegaly -not in exacerbation -resume home meds COPD --> stable --> duonebs PRN History of stroke with residual left sided weakness -->continue home meds Diabetes type I since age 18 -basal bolus ESRD on HD (TTS) --> Nephrology consult, [facility] --> for HD tomorrow Hypertension --> resume home meds dvt ppx heparin diet soft Plan discussed with: Patient, Spouse My Orders Orders - PAUL ALEXANDER MD Procedure Category Date Status Time Insulin Lantus PHA 10/04/24 In Process (Glargine) (Lantus) 10:00 Glucose Blood PHA 10/04/24 In Process (Accu-Chek Comfort 11:30 Dextrose 50% Syringe PHA 10/04/24 In Process 10:00 Insulin Lispro PHA 10/04/24 In Process (Human) (Humalog) 11:30 Date of Service: Oct 04, 2024 Billing Provider: PAUL ALEXANDER MD Common Visit Codes: [id number] INP/OBS CARE(HIGH) PAUL ALEXANDER MD Oct 04, 2024 14:33
[2024-10-04] MEDS: DEXTROSE (50%) 50ML SYRG IV ONE (14:59)
[2024-10-04] MEDS ORDERED: PHEN125S PO (16:54)
[2024-10-05] VITALS (9 sets, daily range): BP systolic 149–167; BP diastolic 24–44; PULSE 64–81; RESP 16–17; TEMP 97.7–98.4; O2SAT 92–100
[2024-10-05] MEDS: levETIRAcetam 500 MG TAB PO SCH (10:00)
[2024-10-05 10:27] LABS: Basophils # (auto) 0 10 ^3/uL (0-0.2); Basophils % (auto) 0.8 % (0.0-2.0); Eosinophils # (auto) 0.3 10 ^3/uL (0-0.8); Hematocrit 27.6 % (41.0-53.0); Hemoglobin 9.3 g/dL (13.5-17.5); Lymphocytes # (auto) 0.8 10 ^3/uL (0.4-5.4); Lymphocytes % (auto) 20.2 % (10.0-50.0); Mean Corpuscular Hemoglobin 33.7 pg (28.0-32.0); Mean Corpuscular Hgb Conc. 33.8 g/dL (32.0-36.0); Mean Corpuscular Volume 99.6 fL (80.0-100.0); Monocytes # (auto) 0.4 10 ^3/uL (0-1.3); Monocytes % (auto) 10.5 % (0.0-12.0); Neutrophils # (auto) 2.4 10 ^3/uL (1.6-8.6); Neutrophils % (auto) 61.5 % (37.0-80.0); Nucleated Red Blood Cells % 0.2 %; Platelet Count (auto) 132 10^3/uL (140-450); Red Blood Cells 2.77 10^6/uL (4.5-5.90); Red Cell Distribution Width 13.1 % (11.8-14.3); White Blood Cell 3.8 10^3/uL (4.4-10.8)
[2024-10-05 10:32] LABS: Chloride 101 mmol/L (98-107); Sodium 142 mmol/L (136-145)
[2024-10-05 10:33] LABS: Anion Gap 10 (5-15); Carbon Dioxide 31 mmol/L (20-31)
[2024-10-05 10:38] LABS: BUN/Creatinine Ratio 14.4 (10.0-20.0)
[2024-10-05 10:39] LABS: Blood Urea Nitrogen 74 mg/dL (9-23); Calcium 8.4 mg/dL (8.7-10.4); Glucose 184 mg/dL (74-106); Potassium 5.2 mmol/L (3.5-5.1)
[2024-10-05] MEDS: SODIUM ZIRCONIUM CYCL 10 GM PAK PO SCH (11:34)
[2024-10-05] MEDS: INSULIN LISPRO (HUMAN) 100 UNITS/ML ML SC SCH ×2 (12:00→17:46)
--- NOTE | 2024-10-05 13:23 | DVHPN2 ---
Progress Note Date Seen: Oct 05, 2024 Has the PT tested + for MRSA If YES, has PT been informed?: No Medical Necessity Reason Pt with a Central, PICC or Fol: No Objective vital signs Vital Sign Date Time Temp Pulse Resp B/P (MAP) Pulse Ox O2 Delivery O2 Flow Rate FiO2 10/05/24 09:56 167/30 10/05/24 09:00 97.9 64 17 92 97.9 10/05/24 08:09 Room Air* 0 21 Total Intake and Output 10/04/24 10/04/24 10/05/24 15:00 23:00 07:00 Intake Total 200 ml 360 ml 100 ml Balance 200 ml 360 ml 100 ml medications Current Medications Medications Dose Ordered Sig/Tomasa Route Start Time Stop Time Status Last Admin Dose Admin Ceftriaxone Sodium 50 ml @ 100 mls/hr DAILY IV 10/02/24 10:00 10/05/24 09:54 100 MLS/HR Azithromycin 250 ml @ 125 mls/hr DAILY IV 10/02/24 01:15 10/05/24 09:55 125 MLS/HR Hydralazine HCl 10 mg Q6HR PO 10/02/24 06:00 10/05/24 05:43 10 MG Aspirin 81 mg DAILY PO 10/02/24 10:00 10/05/24 09:56 81 MG Atorvastatin Calcium 40 mg HS PO 10/02/24 22:00 10/04/24 21:35 40 MG Heparin Sodium (Porcine) 5,000 units Q12HR SC 10/02/24 10:00 10/03/24 22:35 5,000 UNITS Amlodipine Besylate 10 mg DAILY PO 10/03/24 10:00 10/05/24 09:56 10 MG Insulin Glargine 5 units DAILY@1000 SC 10/04/24 10:00 10/05/24 10:12 5 UNITS Diagnostic Test (Pha) 1 strip ACHS 10/04/24 11:30 10/05/24 11:30 1 STRIP Dextrose 50 ml UD PRN IV 10/04/24 10:00 Zirconium Oxide 10 gm DAILY PO 10/05/24 10:00 10/08/24 09:59 10/05/24 11:34 10 GM Levetiracetam 250 mg BID PO 10/05/24 09:30 10/05/24 10:00 250 MG Insulin Human Lispro 2 units DAILY@BREAKFAST [place] 10/06/24 08:00 Insulin Human Lispro 2 units DAILY@LUNCH MS 10/05/24 12:00 Insulin Human Lispro 1 units DAILY@DINNER [place] 10/05/24 17:30 Examination: GENERAL:Abnormal, CVS:Normal laboratory and microbiology Laboratory Tests 10/05/24 09:37 Test 10/05/24 09:37 Range/Units Serum Glucose 184 H 74-106 mg/dL Microbiology Date/Time Source Procedure Growth Status 10/02/24 16:56 Nose MRSA Screen - Final Complete 10/01/24 23:40 Blood Blood Culture - Preliminary NO GROWTH AFTER 72 HOURS OF INCUBATION. Resulted Problem List/Assessment/Plan Problem List/Assessment/Plan End-stage renal disease on hemodialysis Acute respiratory failure Congestive heart failure exacerbation CVA Diabetes mellitus type 2 Hypertension Hyperkalemia Anemia of chronic kidney disease renal diet [facility] Hd tomorrow per outpatient schedule, if dc prior rec go to dialysis unit Plan discussed with: Patient My Orders My Orders Orders - DAVID TOURE MD Procedure Category Date Status Time Sodium Zirconium PHA 10/05/24 In Process Cyclosilicate 10:00 DAVID TOURE MD Oct 05, 2024 13:23
[2024-10-05] MEDS ORDERED: SODIUM ZIRCONIUM CYCL 10 GM PAK PO ONE (17:45)
--- NOTE | 2024-10-05 17:52 | DVHPNRES ---
Progress Note Date Seen: Oct 05, 2024 Resident Creating Document: TREY DRAKE RESIDENT Has the PT tested + for MRSA If YES, has PT been informed?: No Medical Necessity Reason Pt with a Central, PICC or Fol: No Medical Necessity Reason History of Present illness 59-year-old male with past medical history of stroke in 2019 after which patient become alert and oriented times 1 which is baseline, CHF, COPD, diabetes mellitus type 2, end-stage renal disease with dialysis on Saturday, hypertension presented in the ER because of noticed that patient started having trouble breathing and had gurgling sounds for last one day. Patient is alert and oriented x1 in the ER and can not communicate and does not answer to any questions asked and primary communication is done with the . denied any other symptoms Past medical history: stroke in 2019 after which patient become alert and oriented times 1 which is baseline, CHF, COPD, diabetes mellitus type1, end- stage renal disease with dialysis on TThS, hypertension Past surgical history: cholecystectomy Social history: Denied smoking, marijuana, alcohol and any other recreational drugs PN: 10/02/2024 Patient is a 59-year-old male with past medical history significant for end- stage renal disease on hemodialysis every TThS, hypertension, diabetes, CVA, CHF, and COPD, who is admitted secondary to shortness of breath and hypoxemia. On admission Nephrology is consulted to manage hemodialysis. Patient was sleeping at the time of my assessment. History taken from the at bedside. said she noted an unusual sound from during his breathing and it sound raspy. So, she brought him to the ED to be evaluated. Initial blood work showed wbc of 3.7--> 3.0, hgb A1c:7.7. Chest x-ray showed Airspace disease in both lung bases right worse than left. Cardiomegaly PN 10/03/2024 Patient is awake and very alert and oriented. He know he is in the hospital and he answers all question. by the beside. She gives the patient Tresiba 12 UNITS (Insulin) from home because she said she feels more comfortable with it than the regular insulin at the hospital and also she has been giving his the Tresiba for years. She gives the Tresiba 12 unit daily in the morning. This morning patient's FBS was 50. She gave him some protein and oat meal. We spoke to the patient that we will follow protocol and give the patient lantus 6 units and lispros 2 unit per each meal. was a little uncomfortable but we made her know that we will keep a close eye on his blood sugar. Patient was supposed to have dialysis today, but the dialysis nurses could not make it today. So, hopefully tomorrow. In the mean time, his potassium is 5.6 and BUN 96. Will give patient lokelma and Albuterol. No lasix because patient is anuric. PN: 10/04/2024:See Dr. Alexander's notes PN: 10/05/2024: Patient seen and examined at the bedside. He seem a bit somnolent today. He is currently on Keppra 500 mg bid his medical records. told me that patient used to take the 500mg bid, but his his neurologist reduced it to 250 bid because at 500mg bid it was making him somnolent. Patient had HD yesterday (10/04/2024). Potassium today 5.2. The tester wafer substrate already ordered the Lokelma 1. Patient will be having HD tomorrow. Subjective Review of Systems Review of system: Constitutional: Denies fever no chills no feeling of malaise. Patient not saying much to me today, said it is because of the high Keppra dose Unable to complete as patient was not saying much Objective vital signs Vital Sign Date Time Temp Pulse Resp B/P (MAP) Pulse Ox O2 Delivery O2 Flow Rate FiO2 10/05/24 16:56 97.7 65 16 163/34 (77) 92 97.7 10/05/24 08:09 Room Air* 0 21 Total Intake and Output 10/04/24 10/04/24 10/05/24 15:00 23:00 07:00 Intake Total 200 ml 360 ml 100 ml Balance 200 ml 360 ml 100 ml medications Current Medications Medications Dose Ordered Sig/Tomasa Route Start Time Stop Time Status Last Admin Dose Admin Ceftriaxone Sodium 50 ml @ 100 mls/hr DAILY IV 10/02/24 10:00 10/05/24 09:54 100 MLS/HR Azithromycin 250 ml @ 125 mls/hr DAILY IV 10/02/24 01:15 10/05/24 09:55 125 MLS/HR Hydralazine HCl 10 mg Q6HR PO 10/02/24 06:00 10/05/24 13:36 10 MG Aspirin 81 mg DAILY PO 10/02/24 10:00 10/05/24 09:56 81 MG Atorvastatin Calcium 40 mg HS PO 10/02/24 22:00 10/04/24 21:35 40 MG Heparin Sodium (Porcine) 5,000 units Q12HR SC 10/02/24 10:00 10/03/24 22:35 5,000 UNITS Amlodipine Besylate 10 mg DAILY PO 10/03/24 10:00 10/05/24 09:56 10 MG Insulin Glargine 5 units DAILY@1000 [place] 10/04/24 10:00 10/05/24 10:12 5 UNITS Diagnostic Test (Pha) 1 strip ACHS 10/04/24 11:30 10/05/24 16:34 1 STRIP Dextrose 50 ml UD PRN IV 10/04/24 10:00 Zirconium Oxide 10 gm DAILY PO 10/05/24 10:00 10/08/24 09:59 10/05/24 11:34 10 GM Levetiracetam 250 mg BID PO 10/05/24 09:30 10/05/24 10:00 250 MG Insulin Human Lispro 2 units DAILY@BREAKFAST [place] 10/06/24 08:00 Insulin Human Lispro 2 units DAILY@LUNCH [place] 10/05/24 12:00 Insulin Human Lispro 1 units DAILY@DINNER [place] 10/05/24 17:30 Examination General Appearance: Alert, Oriented X3, Cooperative, No acute distress No acute distress HEENT: Atraumatic, PERRLA, EOMI, Mucous membrane moist/pink Respiratory: Clear to auscultation, Normal air movement Cardiovascular: Regular rate, Normal S1, Normal S2, No murmurs, no chest wall tenderness Abdominal: NO distention, no tenderness, bowel sounds present, no scars noted Extremities: Left sided weakness from stroke Skin: No rashes, No breakdown, No significant lesion Neuro: bed and wheel chair bound, sensation intact, mouth right sided deviated on speaking Psych/Mental Status: Mental status NL, Mood NL laboratory and microbiology Laboratory Tests 10/05/24 09:37 Test 10/05/24 09:37 Range/Units Serum Glucose 184 H 74-106 mg/dL Microbiology Date/Time Source Procedure Growth Status 10/02/24 16:56 Nose MRSA Screen - Final Complete 10/01/24 23:40 Blood Blood Culture - Preliminary NO GROWTH AFTER 72 HOURS OF INCUBATION. Resulted Problem List/Assessment/Plan Problem List/Assessment/Plan Assessment Acute hypoxic respiratory failure due to possible aspiration pneumonia --> on 2L, Spo2 100% CAP gram +/-, possible aspiration pneumonia considering patient has stroke and is bed-bound --> IV Ceftriaxone and iv azithromycin --> CXR revealed Airspace disease in both lung bases right worse than left CHF systolic/diastolic Cardiomegaly -not in exacerbation -resume home meds COPD --> stable --> duonebs PRN History of stroke with residual left sided weakness -->continue home meds Diabetes type I since age 18 -sliding scale insulin ESRD on HD (TTS) --> Nephrology consult, [facility] --> for HD tomorrow Mildly hyperkalemic K: 5.2 S/P Lokelma Hypertension --> resume home meds DVT prophylaxis Heparin 5000 b.i.d. Note: is giving patient home insulin (Tresiba) 12 unit. Stopped on 10/04/2024. Now on Lantus 5 units and Lispros 2 units Goal of care discussed for 18 minutes. Code status per : FULL CODE Case and plan discussed + Dr. Alexander Plan discussed with: Patient My Orders My Orders Orders - TREY DRAKE Procedure Category Date Status Time Levetiracetam Tablet PHA 10/05/24 In Process (Keppra Tablet) 09:30 Renal DIET 10/05/24 Transmitted Standard(2gna,3gk,Lopho) Dinner Basic Metabolic Panel LAB 10/06/24 Verified 04:00 Complete Blood Count LAB 10/06/24 Verified 04:00 Date of Service: Oct 05, 2024 Billing Provider: PAUL ALEXANDER MD Common Visit Codes: [id number] INP/OBS CARE(HIGH) TREY DRAKE RESIDENT Oct 05, 2024 17:52 PAUL ALEXANDER MD Oct 07, 2024 22:18
[2024-10-06] VITALS (8 sets, daily range): BP systolic 154–173; BP diastolic 43–67; PULSE 61–70; RESP 16–19; TEMP 97.7–97.9; O2SAT 90–98
[2024-10-06] MEDS ORDERED: SODIUM CHL 0.9% 1000 ML BAG XX ONE (07:00)
[2024-10-06 08:32] LABS: Basophils # (auto) 0 10 ^3/uL (0-0.2); Basophils % (auto) 0.9 % (0.0-2.0); Eosinophils # (auto) 0.3 10 ^3/uL (0-0.8); Eosinophils % (auto) 8.1 % (0.0-7.0); Hematocrit 28.8 % (41.0-53.0); Hemoglobin 9.6 g/dL (13.5-17.5); Lymphocytes # (auto) 0.9 10 ^3/uL (0.4-5.4); Lymphocytes % (auto) 21.5 % (10.0-50.0); Mean Corpuscular Hemoglobin 33.3 pg (28.0-32.0); Mean Corpuscular Hgb Conc. 33.2 g/dL (32.0-36.0); Mean Corpuscular Volume 100.4 fL (80.0-100.0); Monocytes # (auto) 0.3 10 ^3/uL (0-1.3); Monocytes % (auto) 8.3 % (0.0-12.0); Neutrophils # (auto) 2.5 10 ^3/uL (1.6-8.6); Neutrophils % (auto) 61.2 % (37.0-80.0); Nucleated Red Blood Cells % 0.3 %; Platelet Count (auto) 151 10^3/uL (140-450); Red Blood Cells 2.87 10^6/uL (4.5-5.90); Red Cell Distribution Width 13.3 % (11.8-14.3); White Blood Cell 4.1 10^3/uL (4.4-10.8)
[2024-10-06 08:51] LABS: Anion Gap 12 (5-15); Carbon Dioxide 27 mmol/L (20-31); Chloride 100 mmol/L (98-107); Sodium 139 mmol/L (136-145)
[2024-10-06] MEDS: INSULIN LISPRO (HUMAN) 100 UNITS/ML ML SC SCH (09:04)
[2024-10-06 09:05] LABS: BUN/Creatinine Ratio 13.4 (10.0-20.0); Calcium 8.7 mg/dL (8.7-10.4); Glucose 134 mg/dL (74-106); Potassium 5.5 mmol/L (3.5-5.1)
[2024-10-06 09:07] LABS: Blood Urea Nitrogen 81 mg/dL (9-23)
--- NOTE | 2024-10-06 10:43 | DVHPN2 ---
Progress Note Date Seen: Oct 06, 2024 Has the PT tested + for MRSA If YES, has PT been informed?: No Medical Necessity Reason Pt with a Central, PICC or Fol: No Subjective Patient reports: Other Objective vital signs Vital Sign Date Time Temp Pulse Resp B/P (MAP) Pulse Ox O2 Delivery O2 Flow Rate FiO2 10/06/24 09:10 97.9 70 19 169/60 (96) 93 97.9 10/05/24 20:00 Room Air* 0 21 Total Intake and Output 10/05/24 10/05/24 10/06/24 15:00 23:00 07:00 Intake Total 300 ml 460 ml 650 ml Output Total 0 ml Balance 300 ml 460 ml 650 ml medications Current Medications Medications Dose Ordered Sig/Tomasa Route Start Time Stop Time Status Last Admin Dose Admin Ceftriaxone Sodium 50 ml @ 100 mls/hr DAILY IV 10/02/24 10:00 10/06/24 08:59 100 MLS/HR Azithromycin 250 ml @ 125 mls/hr DAILY IV 10/02/24 01:15 10/05/24 09:55 125 MLS/HR Hydralazine HCl 10 mg Q6HR PO 10/02/24 06:00 10/06/24 05:21 10 MG Aspirin 81 mg DAILY PO 10/02/24 10:00 10/06/24 09:00 81 MG Atorvastatin Calcium 40 mg HS PO 10/02/24 22:00 10/05/24 21:50 40 MG Heparin Sodium (Porcine) 5,000 units Q12HR SC 10/02/24 10:00 10/06/24 09:05 5,000 UNITS Amlodipine Besylate 10 mg DAILY PO 10/03/24 10:00 10/06/24 09:00 10 MG Insulin Glargine 5 units DAILY@1000 SC 10/04/24 10:00 10/05/24 10:12 5 UNITS Diagnostic Test (Pha) 1 strip ACHS 10/04/24 11:30 10/06/24 06:02 1 STRIP Dextrose 50 ml UD PRN IV 10/04/24 10:00 Zirconium Oxide 10 gm DAILY PO 10/05/24 10:00 10/08/24 09:59 10/06/24 09:00 10 GM Levetiracetam 250 mg BID PO 10/05/24 09:30 10/06/24 09:00 250 MG Insulin Human Lispro 2 units DAILY@BREAKFAST MT 10/06/24 08:00 10/06/24 09:04 2 UNITS Insulin Human Lispro 2 units DAILY@LUNCH MT 10/05/24 12:00 Insulin Human Lispro 1 units DAILY@DINNER MT 10/05/24 17:30 10/05/24 17:46 1 UNITS Examination: GENERAL:Abnormal laboratory and microbiology Laboratory Tests 10/06/24 07:07 Test 10/06/24 07:07 Range/Units Serum Glucose 134 H 74-106 mg/dL Microbiology Date/Time Source Procedure Growth Status 10/02/24 16:56 Nose MRSA Screen - Final Complete 10/01/24 23:40 Blood Blood Culture - Preliminary NO GROWTH AFTER 72 HOURS OF INCUBATION. Resulted Problem List/Assessment/Plan Problem List/Assessment/Plan End-stage renal disease on hemodialysis Acute respiratory failure Congestive heart failure exacerbation CVA Diabetes mellitus type 2 Hypertension Hyperkalemia Anemia of chronic kidney disease renal diet lokelma daily Hd today fluid removal as tolerated epogen today discussed w ith patient Plan discussed with: Patient, Spouse My Orders My Orders Orders - DAVID TOURE MD Procedure Category Date Status Time Hemodialysis Orders ORDERS 10/06/24 Transmitted 07:00 Dialysis Nursing JAMILA 10/06/24 In Process Message 07:00 Document Fluid Input JAMILA 10/06/24 In Process And Outpu 07:00 Epoetin Julius-Epbx PHA 10/06/24 In Process (Retacrit) 21:00 Dietary Evaluation Review Comments: 1. Follow current diet CCHO-60 Renal standard, 2. Tight dietary CHO control for DM managemnt. 3. Increase enrergy demands via a higher fat diet, monitor insulin requirement throught POC glucose levels. 4. prevent constipation by increasing dietary fiber, increase phsyical activities and using laxactives. 5. Take Vit D supplements. Expected Outcomes/Goals: controlled DM, improved wound healing. maintain body weight. DAVID TOURE MD Oct 06, 2024 10:43
--- NOTE | 2024-10-06 20:17 | DVHPNRES ---
Progress Note Date Seen: Oct 06, 2024 Resident Creating Document: TREY DRAKE RESIDENT Has the PT tested + for MRSA If YES, has PT been informed?: No Medical Necessity Reason Pt with a Central, PICC or Fol: No Medical Necessity Reason History of Present illness 59-year-old male with past medical history of stroke in 2019 after which patient become alert and oriented times 1 which is baseline, CHF, COPD, diabetes mellitus type 2, end-stage renal disease with dialysis on Saturday, hypertension presented in the ER because of noticed that patient started having trouble breathing and had gurgling sounds for last one day. Patient is alert and oriented x1 in the ER and can not communicate and does not answer to any questions asked and primary communication is done with the . denied any other symptoms Past medical history: stroke in 2019 after which patient become alert and oriented times 1 which is baseline, CHF, COPD, diabetes mellitus type1, end- stage renal disease with dialysis on TThS, hypertension Past surgical history: cholecystectomy Social history: Denied smoking, marijuana, alcohol and any other recreational drugs PN: 10/02/2024 Patient is a 59-year-old male with past medical history significant for end- stage renal disease on hemodialysis every TThS, hypertension, diabetes, CVA, CHF, and COPD, who is admitted secondary to shortness of breath and hypoxemia. On admission Nephrology is consulted to manage hemodialysis. Patient was sleeping at the time of my assessment. History taken from the at bedside. said she noted an unusual sound from during his breathing and it sound raspy. So, she brought him to the ED to be evaluated. Initial blood work showed wbc of 3.7--> 3.0, hgb A1c:7.7. Chest x-ray showed Airspace disease in both lung bases right worse than left. Cardiomegaly PN 10/03/2024 Patient is awake and very alert and oriented. He know he is in the hospital and he answers all question. by the beside. She gives the patient Tresiba 12 UNITS (Insulin) from home because she said she feels more comfortable with it than the regular insulin at the hospital and also she has been giving his the Tresiba for years. She gives the Tresiba 12 unit daily in the morning. This morning patient's FBS was 50. She gave him some protein and oat meal. We spoke to the patient that we will follow protocol and give the patient lantus 6 units and lispros 2 unit per each meal. was a little uncomfortable but we made her know that we will keep a close eye on his blood sugar. Patient was supposed to have dialysis today, but the dialysis nurses could not make it today. So, hopefully tomorrow. In the mean time, his potassium is 5.6 and BUN 96. Will give patient lokelma and Albuterol. No lasix because patient is anuric. PN: 10/04/2024:See Dr. Edwards's notes PN: 10/05/2024: Patient seen and examined at the bedside. He seem a bit somnolent today. He is currently on Keppra 500 mg bid his medical records. told me that patient used to take the 500mg bid, but his his neurologist reduced it to 250 bid because at 500mg bid it was making him somnolent. Patient had HD yesterday (10/04/2024). Potassium today 5.2. The refinery operator light ends recovery already ordered the Lokelma 1. Patient will be having HD tomorrow. PN: 10/06/2024 Patient stable. Plan is to discharge him home,but patient is still pending HD. it was done at 9 pm. Patient will go home today. Subjective Review of Systems Constitutional: Denies fever no chills no feeling of malaise HEENT: Denies headache, ear pain, ear discharges, conjunctivitis, nasal discharge throat pain Cardiovascular: Denies chest pain, palpitation, orthopnea, PND, or pedal edema Respiratory: Denies shortness of breath, cough cough, sputum production, hemoptysis, GI: Denies abdominal pain, nausea, vomiting, diarrhea, hematemesis, hematochezia, : Denies frequency, urgency, hematuria, Endocrine: Denies unintentional weight gain or weight loss, feeling of hot flashes, Randal: Denies easy bruising, bleeding disorders, epistaxis Musculoskeletal: Denies joint pains, muscle aches Psych: No evidence of depression, paul, suicidal ideation Objective vital signs Vital Sign Date Time Temp Pulse Resp B/P (MAP) Pulse Ox O2 Delivery O2 Flow Rate FiO2 10/06/24 17:40 154/49 10/06/24 16:45 97.8 69 19 96 97.8 10/06/24 08:00 Room Air* 0 21 Total Intake and Output 10/05/24 10/05/24 10/06/24 15:00 23:00 07:00 Intake Total 300 ml 460 ml 650 ml Output Total 0 ml Balance 300 ml 460 ml 650 ml medications Current Medications Medications Dose Ordered Sig/Tomasa Route Start Time Stop Time Status Last Admin Dose Admin Ceftriaxone Sodium 50 ml @ 100 mls/hr DAILY IV 10/02/24 10:00 10/06/24 08:59 100 MLS/HR Azithromycin 250 ml @ 125 mls/hr DAILY IV 10/02/24 01:15 10/06/24 13:25 125 MLS/HR Hydralazine HCl 10 mg Q6HR PO 10/02/24 06:00 10/06/24 05:21 10 MG Aspirin 81 mg DAILY PO 10/02/24 10:00 10/06/24 09:00 81 MG Atorvastatin Calcium 40 mg HS PO 10/02/24 22:00 10/05/24 21:50 40 MG Heparin Sodium (Porcine) 5,000 units Q12HR SC 10/02/24 10:00 10/06/24 09:05 5,000 UNITS Amlodipine Besylate 10 mg DAILY PO 10/03/24 10:00 10/06/24 09:00 10 MG Insulin Glargine 5 units DAILY@1000 HI 10/04/24 10:00 10/06/24 13:23 5 UNITS Diagnostic Test (Pha) 1 strip ACHS 10/04/24 11:30 10/06/24 17:00 1 STRIP Dextrose 50 ml UD PRN IV 10/04/24 10:00 Zirconium Oxide 10 gm DAILY PO 10/05/24 10:00 10/08/24 09:59 10/06/24 09:00 10 GM Levetiracetam 250 mg BID PO 10/05/24 09:30 10/06/24 09:00 250 MG Insulin Human Lispro 2 units DAILY@BREAKFAST [place] 10/06/24 08:00 10/06/24 09:04 2 UNITS Insulin Human Lispro 2 units DAILY@LUNCH HI 10/05/24 12:00 Insulin Human Lispro 1 units DAILY@DINNER [place] 10/05/24 17:30 10/06/24 17:53 1 UNITS Examination General Appearance: Alert, Oriented X3, Cooperative, No acute distress No acute distress HEENT: Atraumatic, PERRLA, EOMI, Mucous membrane moist/pink Respiratory: Clear to auscultation, Normal air movement Cardiovascular: Regular rate, Normal S1, Normal S2, No murmurs, no chest wall tenderness Abdominal: NO distention, no tenderness, bowel sounds present, no scars noted Extremities: Left sided weakness from stroke Skin: No rashes, No breakdown, No significant lesion Neuro: bed and wheel chair bound, sensation intact, mouth right sided deviated on speaking Psych/Mental Status: Mental status NL, Mood NL laboratory and microbiology Laboratory Tests 10/06/24 07:07 Test 10/06/24 07:07 Range/Units Serum Glucose 134 H 74-106 mg/dL Microbiology Date/Time Source Procedure Growth Status 10/02/24 16:56 Nose MRSA Screen - Final Complete 10/01/24 23:40 Blood Blood Culture - Preliminary NO GROWTH AFTER 72 HOURS OF INCUBATION. Resulted Problem List/Assessment/Plan Problem List/Assessment/Plan Assessment Acute hypoxic respiratory failure due to possible aspiration pneumonia --> on 2L, Spo2 100% CAP gram +/-, possible aspiration pneumonia considering patient has stroke and is bed-bound --> IV Ceftriaxone and iv azithromycin --> CXR revealed Airspace disease in both lung bases right worse than left CHF systolic/diastolic Cardiomegaly -not in exacerbation -resume home meds COPD --> stable --> duonebs PRN History of stroke with residual left sided weakness -->continue home meds Diabetes type I since age 18 -sliding scale insulin ESRD on HD (TTS) --> Nephrology consult, [facility] --> for HD tomorrow Mildly hyperkalemic K: 5.2 S/P Lokelma Hypertension --> resume home meds DVT prophylaxis Heparin 5000 b.i.d. Note: is giving patient home insulin (Tresiba) 12 unit. Stopped on 10/04/2024. Now on Lantus 5 units and Lispros 2 units Goal of care discussed for 18 minutes. Code status per : FULL CODE Case and plan discussed + Dr. Jerry Bingham discussed with: Patient My Orders My Orders Orders - TREY DRAKE Procedure Category Date Status Time Potassium LAB 10/06/24 Logged 14:05 Communication Order ORDERS 10/06/24 Transmitted 15:07 Dietary Evaluation Review Comments: 1. Follow current diet CCHO-60 Renal standard, 2. Tight dietary CHO control for DM managemnt. 3. Increase enrergy demands via a higher fat diet, monitor insulin requirement throught POC glucose levels. 4. prevent constipation by increasing dietary fiber, increase phsyical activities and using laxactives. 5. Take Vit D supplements. Expected Outcomes/Goals: controlled DM, improved wound healing. maintain body weight. Date of Service: Oct 06, 2024 Billing Provider: PAUL EDWARDS MD Common Visit Codes: [id number] INP/OBS CARE(HIGH) TREY DRAKE RESIDENT Oct 06, 2024 20:17 PAUL EDWARDS MD Oct 07, 2024 22:27
[2024-10-06] MEDS: EPOETIN ALFA-EPBX 10,000 UNIT/1ML VIAL SC ONE (23:35)
[2024-10-07] VITALS (7 sets, daily range): BP systolic 136–179; BP diastolic 33–64; PULSE 60–70; RESP 17–21; TEMP 97.6–98.2; O2SAT 90–98
--- NOTE | 2024-10-07 12:07 | DVHDSRES ---
Discharge Summary Date of Admission Resident Creating Document: TREY DRAKE RESIDENT Oct 01, 2024 at 23:28 Date of Discharge: Oct 07, 2024 Admitting Diagnosis Pneumonia shortness of breath Labs/Diagnostic Data: PATIENT: EMILY MONIQUE ACCT: [id number] UNIT: [id number] : 1965 LOC: [facility] AGE / SEX: 59 / M ADM STATUS: ADM IN SERVICE 26 ORDERING PHYSICIAN: LEANDRO ALCANTARA MD PROCEDURE(s): CXR1 - CHEST XRAY 1 VIEW REASON: Short of breath ORDER NUMBER(s): [id number], ACCESSION NUMBER(s): [id number] CHEST RADIOGRAPH Indication: Short of breath Technique: Single frontal view of the chest was obtained Comparison: None FINDINGS: Lines and Tubes: None Lungs: Patient's left hand is superimposed over the left lower lung field. Airspace disease is noted in the lung bases bilaterally right worse than left. Pleura: No effusion. No pneumothorax. Cardiomediastinal contours: Cardiomegaly Bones: No acute osseous abnormality. IMPRESSION: 1. Airspace disease in both lung bases right worse than left. 2. Cardiomegaly HS:Y ATED BY: ROGER CARNEY Jr., DO DICTATED DATE/TIME: 10/01/242131 Laboratory Results Test 10/07/24 07:50 10/07/24 00:19 10/06/24 07:07 10/03/24 08:00 POC Glucose 81 mg/dl (70-106) Potassium Level 4.2 mmol/L (3.5-5.1) White Blood Count 4.1 10^3/uL (4.4-10.8) Red Blood Count 2.87 10^6/uL (4.5-5.90) Hemoglobin 9.6 g/dL (13.5-17.5) Hematocrit 28.8 % (41.0-53.0) Mean Corpuscular Volume 100.4 fL (80.0-100.0) Mean Corpuscular Hemoglobin 33.3 pg (28.0-32.0) Mean Corpuscular Hemoglobin Concent 33.2 g/dL (32.0-36.0) Red Cell Distribution Width 13.3 % (11.8-14.3) Platelet Count 151 10^3/uL (140-450) Mean Platelet Volume 7.4 fL (6.9-10.8) Neutrophils (%) (Auto) 61.2 % (37.0-80.0) Lymphocytes (%) (Auto) 21.5 % (10.0-50.0) Monocytes (%) (Auto) 8.3 % (0.0-12.0) Eosinophils (%) (Auto) 8.1 % (0.0-7.0) Basophils (%) (Auto) 0.9 % (0.0-2.0) Neutrophils # (Auto) 2.5 10 ^3/uL (1.6-8.6) Lymphocytes # (Auto) 0.9 10 ^3/uL (0.4-5.4) Monocytes # (Auto) 0.3 10 ^3/uL (0-1.3) Eosinophils # (Auto) 0.3 10 ^3/uL (0-0.8) Basophils # (Auto) 0 10 ^3/uL (0-0.2) Nucleated Red Blood Cells 0.3 % Sodium Level 139 mmol/L (136-145) Chloride Level 100 mmol/L (98-107) Carbon Dioxide Level 27 mmol/L (20-31) Anion Gap 12 (5-15) Blood Urea Nitrogen 81 mg/dL (9-23) Creatinine 6.06 mg/dL (0.700-1.30) Glomerular Filtration Rate Calc 10 mL/min (>90) BUN/Creatinine Ratio 13.4 (10.0-20.0) Serum Glucose 134 mg/dL (74-106) Calcium Level 8.7 mg/dL (8.7-10.4) Total Bilirubin < 0.2 mg/dL (0.2-1.0) Aspartate Amino Transferase (AST) 18 U/L (13-40) Alanine Aminotransferase (ALT) 34 U/L (7-40) Alkaline Phosphatase 177 U/L (46-116) Total Protein 6.1 g/dL (5.7-8.2) Albumin 3.5 g/dL (3.2-4.8) Test 10/02/24 18:42 10/02/24 06:38 4/11/25 05:40 10/01/24 23:40 Phosphorus Level 5.5 mg/dL (2.4-5.1) Magnesium Level 2.3 mg/dL (1.6-2.6) Influenza Type A Antigen Negative (Negative) Influenza Type B Antigen Negative (Negative) SARS-CoV-2 Antigen (Rapid) Negative (NEGATIVE) Hemoglobin A1c 7.7 % A1C (<5.7) Vitamin D 25-Hydroxy 24.0 ng/mL (30.0-100) Hepatitis B Surface Antigen Negative (Negative) Lactic Acid Level 1.1 mmol/L (0.4-2.0) Test 10/01/24 21:08 10/01/24 21:01 Troponin I High Sensitivity 18 ng/L (</=54) Blood Gas Specimen Type Arterial Blood Gas Sample Site Right radial Blood Gas Patient Temperature 37.0 Arterial Blood Date Drawn [id number] Arterial Blood pH 7.425 (7.350-7.450) Arterial Blood Partial Pressure CO2 46.0 mmHg (35.0-48.0) Arterial Blood Partial Pressure O2 61.0 mmHg (83.0-108.0) Arterial Blood HCO3 29.5 mmol/L (21.0-28.0) Arterial Blood Oxygen Saturation 89.8 % (94.0-98.0) Arterial Blood Base Excess 4.5 mmol/L (-2.0-3.0) Arterial Blood Oxyhemoglobin 88.3 % (94.0-98.0) Arterial Blood Carboxyhemoglobin 1.4 % (0.5-1.5) Arterial Blood Methemoglobin 0.3 % (0.0-1.5) Warner Test Yes Blood Gas Total Hemoglobin 10.60 g/dL (13.5-17.5) Blood Gas Liter Flow 1.00 Blood Gas Modality Nasal cannula FiO2 % 24.0 Other Laboratory Tests 10/07/24 00:19 10/06/24 07:07 Brief Hx & Hospital Course: History of Present illness 59-year-old male with past medical history of stroke in 2019 after which patient become alert and oriented times 1 which is baseline, CHF, COPD, diabetes mellitus type 2, end-stage renal disease with dialysis on Saturday, hypertension presented in the ER because of noticed that patient started having trouble breathing and had gurgling sounds for last one day. Patient is alert and oriented x1 in the ER and can not communicate and does not answer to any questions asked and primary communication is done with the . denied any other symptoms Past medical history: stroke in 2019 after which patient become alert and oriented times 1 which is baseline, CHF, COPD, diabetes mellitus type1, end- stage renal disease with dialysis on TThS, hypertension Past surgical history: cholecystectomy Social history: Denied smoking, marijuana, alcohol and any other recreational drugs Brief Hospital course Patient is a 59-year-old male with past medical history significant for end- stage renal disease on hemodialysis every TThS, hypertension, diabetes, CVA, CHF, and COPD, who is admitted secondary to shortness of breath and hypoxemia. On admission Nephrology is consulted to manage hemodialysis. Patient was sleeping at the time of my assessment. History taken from the at bedside. said she noted an unusual sound from during his breathing and it sound raspy. So, she brought him to the ED to be evaluated. Initial blood work showed wbc of 3.7--> 3.0, hgb A1c:7.7. Chest x-ray showed Airspace disease in both lung bases right worse than left. Cardiomegaly Patient is awake and very alert and oriented. He know he is in the hospital and he answers all question. by the beside. She gives the patient Tresiba 12 UNITS (Insulin) from home because she said she feels more comfortable with it than the regular insulin at the hospital and also she has been giving his the Tresiba for years. She gives the Tresiba 12 unit daily in the morning. This morning patient's FBS was 50. She gave him some protein and oat meal. We spoke to the patient that we will follow protocol and give the patient lantus 6 units and lispros 2 unit per each meal. was a little uncomfortable but we made her know that we will keep a close eye on his blood sugar. Patient was supposed to have dialysis today, but the dialysis nurses could not make it today. So, hopefully tomorrow. In the mean time, his potassium is 5.6 and BUN 96. Will give patient lokelma and Albuterol. No lasix because patient is anuric. PN: 10/04/2024:See Dr. Edwards's notes Patient seen and examined at the bedside. He seem a bit somnolent today. He is currently on Keppra 500 mg bid his medical records. told me that patient used to take the 500mg bid, but his his neurologist reduced it to 250 bid because at 500mg bid it was making him somnolent. Patient had HD yesterday (10/04/2024). Potassium today 5.2. The foam tank laminator already ordered the Lokelma 1. Patient will be having HD tomorrow. Examination General Appearance: Alert, Oriented X3, Cooperative, No acute distress No acute distress HEENT: Atraumatic, PERRLA, EOMI, Mucous membrane moist/pink Respiratory: Clear to auscultation, Normal air movement Cardiovascular: Regular rate, Normal S1, Normal S2, No murmurs, no chest wall tenderness Abdominal: NO distention, no tenderness, bowel sounds present, no scars noted Extremities: Left sided weakness from stroke Skin: No rashes, No breakdown, No significant lesion Neuro: bed and wheel chair bound, sensation intact, mouth right sided deviated on speaking Psych/Mental Status: Mental status NL, Mood NL Diagnoses Acute hypoxic respiratory failure due to possible aspiration pneumonia CAP gram +/-, possible aspiration pneumonia considering patient has stroke and is bed-bound CHF systolic/diastolic Cardiomegaly COPD History of stroke with residual left sided weakness Diabetes type I since age 18 ESRD on HD (TTS) Mildly hyperkalemic Hypertension Discharge planning Discharge home Discharge clinic in 14 days continue HD per nephrology recommendation ( TTHS) Continue home medications report back to the ED if patient feels unwell. Case and Discharge plan discuss with Dr. Edwards Consults/Reason for consult end-stage renal disease to manage hemodialysis Condition at Discharge: Stable Final Diagnosis/Problems List Acute hypoxic respiratory failure due to possible aspiration pneumonia CAP gram +/-, possible aspiration pneumonia considering patient has stroke and is bed-bound CHF systolic/diastolic Cardiomegaly COPD History of stroke with residual left sided weakness Diabetes type I since age 18 ESRD on HD (TTS) Mildly hyperkalemic Hypertension Discharge Disposition: Home Discharge Instruct/Medications Diet: See Comment Diet comment: diabetic and renal Activity: No Restrictions, As Tolerated Follow Up/Referral: 7 days Medications: Continue home medication Discharge Statement: "Patient was advised to return to the ER or call 911 if any headaches, dizziness, shortness of breath, chest pain, abdominal pain, bleeding, fevers, or worsening of medical condition. Patient was counseled about treatment plan, medications, possible side effects, patientverbalized understanding. All questions were answered to the best of my ability. This discharge took greater then 30 minutes in planning, reviewing documentation, counseling the patient, and discussing with other team members." ASSESSMENT ASSESSMENT Assessment Acute hypoxic respiratory failure due to possible aspiration pneumonia CAP gram +/-, possible aspiration pneumonia considering patient has stroke and is bed-bound CHF systolic/diastolic Cardiomegaly COPD History of stroke with residual left sided weakness Diabetes type I since age 18 ESRD on HD (TTS) Mildly hyperkalemic Hypertension TREY DRAKE RESIDENT Oct 07, 2024 12:07
--- NOTE | 2024-10-07 14:11 | DVHPN2 ---
Progress Note Date Seen: Oct 07, 2024 Has the PT tested + for MRSA If YES, has PT been informed?: No Medical Necessity Reason Pt with a Central, PICC or Fol: No Objective vital signs Vital Sign Date Time Temp Pulse Resp B/P (MAP) Pulse Ox O2 Delivery O2 Flow Rate FiO2 10/07/24 12:39 97.8 70 20 163/34 (77) 90 97.8 10/07/24 08:00 Room Air* 0 21 Total Intake and Output 10/06/24 10/06/24 10/07/24 15:00 23:00 07:00 Intake Total 50 ml 1050 ml 400 ml Output Total 0 ml Balance 50 ml 1050 ml 400 ml medications Current Medications Medications Dose Ordered Sig/Tomasa Route Start Time Stop Time Status Last Admin Dose Admin Ceftriaxone Sodium 50 ml @ 100 mls/hr DAILY IV 10/02/24 10:00 10/07/24 09:07 100 MLS/HR Azithromycin 250 ml @ 125 mls/hr DAILY IV 10/02/24 01:15 10/07/24 11:31 125 MLS/HR Hydralazine HCl 10 mg Q6HR PO 10/02/24 06:00 10/07/24 12:25 10 MG Aspirin 81 mg DAILY PO 10/02/24 10:00 10/07/24 09:08 81 MG Atorvastatin Calcium 40 mg HS PO 10/02/24 22:00 10/06/24 23:36 40 MG Heparin Sodium (Porcine) 5,000 units Q12HR SC 10/02/24 10:00 10/07/24 09:09 5,000 UNITS Amlodipine Besylate 10 mg DAILY PO 10/03/24 10:00 10/07/24 09:07 10 MG Insulin Glargine 5 units DAILY@1000 SC 10/04/24 10:00 10/07/24 11:32 5 UNITS Diagnostic Test (Pha) 1 strip ACHS 10/04/24 11:30 10/07/24 11:32 1 STRIP Dextrose 50 ml UD PRN IV 10/04/24 10:00 Zirconium Oxide 10 gm DAILY PO 10/05/24 10:00 10/08/24 09:59 10/07/24 09:07 10 GM Levetiracetam 250 mg BID PO 10/05/24 09:30 10/07/24 09:08 250 MG Insulin Human Lispro 2 units DAILY@BREAKFAST ND 10/06/24 08:00 10/06/24 09:04 2 UNITS Insulin Human Lispro 2 units DAILY@LUNCH ND 10/05/24 12:00 10/07/24 12:26 2 UNITS Insulin Human Lispro 1 units DAILY@DINNER ND 10/05/24 17:30 10/06/24 17:53 1 UNITS Examination: GENERAL:Normal, CVS:Normal laboratory and microbiology Laboratory Tests 10/07/24 00:19 10/06/24 07:07 Test 10/06/24 07:07 Range/Units Serum Glucose 134 H 74-106 mg/dL Microbiology Date/Time Source Procedure Growth Status 10/02/24 16:56 Nose MRSA Screen - Final Complete 10/01/24 23:40 Blood Blood Culture - Final NO GROWTH AFTER 5 DAYS OF INCUBATION. Complete Problem List/Assessment/Plan Problem List/Assessment/Plan End-stage renal disease on hemodialysis Acute respiratory failure Congestive heart failure exacerbation CVA Diabetes mellitus type 2 Hypertension Hyperkalemia Anemia of chronic kidney disease renal diet epogen discussed with patient if remains hospitalized then we will schedule dialysis on Plan discussed with: Patient Dietary Evaluation Review Comments: 1. Follow current diet CCHO-60 Renal standard, 2. Tight dietary CHO control for DM managemnt. 3. Increase enrergy demands via a higher fat diet, monitor insulin requirement throught POC glucose levels. 4. prevent constipation by increasing dietary fiber, increase phsyical activities and using laxactives. 5. Take Vit D supplements. Expected Outcomes/Goals: controlled DM, improved wound healing. maintain body weight. DAVID TOURE MD Oct 07, 2024 14:11
== END 2024-10-07 18:45 | disposition home or self-care (01) | DRG 177 ==
LOC: EDBD 20:08 → ER 20:08 → EDUNIT# 23:28 → OVERFLOW 23:28 → CENTRAL 10-03 15:36 → TELE-CENTR 10-04 15:47
PROVIDERS: ADMIT Student in an Organized Health Care Education/Training Program; ATTEND Student in an Organized Health Care Education/Training Program
PROC: 5A1D70Z Performance of Urinary Filtration, Intermittent, Less than 6 Hours Per Day (ICD-10-PCS; principal; 2024-10-04)
PROC: 5A1D70Z Performance of Urinary Filtration, Intermittent, Less than 6 Hours Per Day (ICD-10-PCS; 2024-10-06)
DX: J15.69 Pneumonia due to other Gram-negative bacteria (principal); J96.01 Acute respiratory failure with hypoxia; N18.6 End stage renal disease; I13.2 Hypertensive heart and chronic kidney disease with heart failure and with stage 5 chronic kidney disease, or end stage renal disease; I50.42 Chronic combined systolic (congestive) and diastolic (congestive) heart failure; I69.354 Hemiplegia and hemiparesis following cerebral infarction affecting left non-dominant side; D63.1 Anemia in chronic kidney disease; J44.9 Chronic obstructive pulmonary disease, unspecified; J15.9 Unspecified bacterial pneumonia; J69.0 Pneumonitis due to inhalation of food and vomit; E10.22 Type 1 diabetes mellitus with diabetic chronic kidney disease; E87.5 Hyperkalemia; Z99.2 Dependence on renal dialysis; Z74.01 Bed confinement status; Z79.899 Other long term (current) drug therapy; Z90.49 Acquired absence of other specified parts of digestive tract
CPT/HCPCS: 36415; 36600; 71045; 80048; 80053; 82306; 82805; 82962; 83036; 83605; 83735; 84100; 84132; 84484; 85025; 87040; 87081; 87340; 87426; 87804; 90935; 93005; 94640; 96365; 99291; G0378; J1815

== ENCOUNTER 2025-03-29 02:03 | Inpatient (IN) | payer MEDICARE, MEDICAID ==
[~2025-03-29] VITALS: Ht 185.4 cm; Wt 74.4 kg
[2025-03-29] VITALS (17 sets, daily range): BP systolic 112–150; BP diastolic 48–72; PULSE 47–86; RESP 12–19; TEMP 95.7–98.6; O2SAT 95–99
[~2025-03-29 02:03] MED LIST changes: -ASPI-498 PO; -CARV6.2551 PO; -FER325T PO; -HYDR50TA47 PO; +LEVE500T3 PO; -LEVO500T91 PO; -PAR20T PO; -PHEN1CAP38 PO; -POM PO
--- NOTE | 2025-03-29 02:41 | ED.PDOC ---
History of Present Illness HPI Comments 60 y/o M is BIBA for c/c of left sided chest pain. Significant history of Cardiomegaly, CHF, COPD, CVA w/residual left sided weakness and established baseline of A&Ox1, DM, ESRD w/HD T//Sat, and HTN. Per EMS personnel report, patient endorses on onset of pain, that is reproducible with palpation, this morning. Patient comments on history of similar pain in the past when he was found with pleural effusion and suspects on having the same condition, again. No reported shortness of breath, nausea, vomiting, or further associated symptoms. Chief Complaint: Chest Pain Time Seen by MD: 02:10 Primary Care Provider: JORGE Reviewed Notes: Nurses Notes, Mobile Designer Notes, Medications, Allergies Allergies: Coded Allergies: NO KNOWN ALLERGIES (Unverified , 02/21/19) Home Meds Reported Medications Levetiracetam (Levetiracetam) 250 Mg Tab, 1 TAB PO BID for 90 Days, #170 10/06/24 Levothyroxine Sodium (Levothyroxine Sodium) 25 Mcg Tab, 1 TAB PO QAM for 90 Days, #90 10/06/24 Empagliflozin (Jardiance) 25 Mg Tab, 1 TAB PO DAILY for 42 Days, #42 10/06/24 Phenytoin (Dilantin-125) 125 Mg/5 Ml Mercedes, 8 ML PO DAILY@2PM for 29 Days, #237 SHAKE LIQUID AND TAKE 8 ML BY MOUTH AT 2 PM. 10/06/24 Hydralazine Hcl (Hydralazine Hcl) 100 Mg Tab, 1 TAB PO TID for 90 Days, #180 10/06/24 Carvedilol (Carvedilol) 12.5 Mg Tab, 1 TAB PO BID for 90 Days, #180 10/06/24 Paroxetine Hydrochloride (Paroxetine Hydrochloride) 10 Mg Tab, 1 TAB PO DAILY for 90 Days, #90 10/06/24 Amlodipine Besylate (Amlodipine Besylate) 10 Mg Tab, 1 TAB PO DAILY 10/02/24 Levetiracetam (Levetiracetam) 500 Mg Tab, 1 TAB PO BID 10/02/24 Paroxetine Hydrochloride (Paroxetine Hydrochloride) 10 Mg Tab, 10 MG PO DAILY, TAB 07/03/24 Phenytoin (Dilantin-125) 125 Mg/5 Ml Mercedes, 8 ML PO DAILY@1400 for 29 Days, #237 ML SHAKE LIQUID AND TAKE 8 ML BY MOUTH DAILY AT 2 PM 07/03/24 Omeprazole (Omeprazole Dr) 40 Mg Cap, 40 MG PO DAILY, CAP 07/03/24 Empagliflozin (Jardiance) 25 Mg Tab, 25 MG PO DAILY, TAB 07/03/24 Levothyroxine Sodium (Levothyroxine Sodium) 25 Mcg Tab, 25 MCG PO QAM, TAB TAKE 1 TABLET BY MOUTH DAILY IN THE MORNING ON AN EMPTY STOMACH 07/03/24 Levetiracetam (Levetiracetam) 250 Mg Tab, 250 MG PO BID, TAB 07/03/24 Amlodipine Besylate (Amlodipine Besylate) 10 Mg Tab, 10 MG PO DAILY, TAB 07/03/24 Polynuclear Iron(III)-Oxyhydro (Velphoro) 500 Mg Chw, 500 MG PO TID, TAB.CHEW 07/02/24 Atorvastatin Calcium (ATORVASTATIN CALCIUM) 20 Mg Tab, 1 TAB PO DAILY@DINNER, #30 TAB 5 Refills 07/02/24 Gabapentin (Gabapentin) 100 Mg Cap, 1 CAP PO DAILY@DINNER, #90 CAP 2 Refills 07/02/24 Hydralazine Hcl (Hydralazine Hcl) 100 Mg Tab, 1 TAB PO BID, #90 TAB 5 Refills 07/02/24 Carvedilol (Carvedilol) 12.5 Mg Tab, 1 TAB PO BID, #180 TAB 1 Refill 07/02/24 Aspirin (Aspirin Low Dose) 81 Mg Chw, 1 TAB PO DAILY, #30 TAB 3 Refills 07/02/24 Gabapentin (Gabapentin) 100 Mg Cap, 1 TAB PO DAILY for 42 Days, #42 04/06/22 Atorvastatin Calcium (ATORVASTATIN CALCIUM) 20 Mg Tab, 1 TAB PO DAILY for 90 Days, #90 02/22/19 Amlodipine Besylate (Amlodipine Besylate) 10 Mg Tab, 1 TAB PO DAILY for 90 Days, #90 02/22/19 Information Source: Emergency Med Personnel Mode of Arrival: EMS Severity: Moderate Timing: Hours Duration: Since onset Prehospital treatment: 12 Lead EKG, Accucheck, Cover Inspector Past Medical History PAST MEDICAL HISTORY: CHF, COPD, CVA (residual left sided weakness; baseline - alert and oriented x1), DM, ESRD (w/HD T/Th/Sat), HTN Past Medical History (Other): Bed bound PNA Cardiomegaly Surgical History: Appendectomy Family History Family History: Reviewed,noncontributory to illness Social History Smoker: Non-Smoker Alcohol: Denies ETOH Use Drugs: Denies Drug Use Lives In: Home, Assisted Care All Other Systems: Reviewed and Negative (Comprehensive systems review obtained and negative except for what is stated in the HPI) Physical Exam General Appearance: Moderate Distress HEENT: Normal ENT Inspection, Pharynx Normal, TMs Normal Neck: Full Range of Motion, Non-Tender, Normal, Normal Inspection Respiratory: Respiratory Distress, Other (Coarse breath sounds) Cardiovascular: Bradycardia, No Edema, No JVD, No Murmur, No Gallop, Normal Peripheral Pulses Breast Exam: Deferred Gastrointestinal: No Organomegaly, Non Tender, No Pulsatile Mass, Normal Bowel Sounds, Soft Genitalia: Deferred Pelvic: Deferred Rectal: Deferred Extremities: No calf tenderness Musculoskeletal : Apperance: Normal Neurologic: Alert (Appropriate) Cerebellar Function: NOT DONE Reflexes: NOT DONE Skin: Normal Color Peripheral Pulses: 3+ Radial (R), 3+ Radial (L) Lymphatic: No Adenopathy Was a procedure done? Was a procedure done?: No EKG EKG : Pulse Rate (adult): 57 [place]: Normal Cardiac Rhythm: NSR Block: None Hypertrophy: None ST: Normal Differential Dx Considerations may include: UT, PE, ACS, URI, PNA, angina, anxiety, gastritis, GERD, viral syndrome, pleural effusion, among others X-Ray, Labs, Meds, VS Vital Signs Date Time Temp Pulse Resp B/P (MAP) Pulse Ox O2 Delivery O2 Flow Rate FiO2 03/29/25 02:58 56 03/29/25 02:41 57 03/29/25 02:04 57 03/29/25 02:03 97.5 57 20 130/53 96 97.5 Lab Test 03/29/25 03:26 03/29/25 02:39 Range/Units Troponin I High Sensitivity 14 14 </=54 ng/L White Blood Count 3.2 L 4.4-10.8 10^3/uL Red Blood Count 2.78 L 4.5-5.90 10^6/uL Hemoglobin 9.2 L 13.5-17.5 g/dL Hematocrit 28.6 L 41.0-53.0 % Mean Corpuscular Volume 103.0 H 80.0-100.0 fL Mean Corpuscular Hemoglobin 33.1 H 28.0-32.0 pg Mean Corpuscular Hemoglobin Concent 32.1 32.0-36.0 g/dL Red Cell Distribution Width 15.7 H 11.8-14.3 % Platelet Count 156 140-450 10^3/uL Mean Platelet Volume 7.5 6.9-10.8 fL Neutrophils (%) (Auto) 69.8 37.0-80.0 % Lymphocytes (%) (Auto) 19.0 10.0-50.0 % Monocytes (%) (Auto) 6.5 0.0-12.0 % Eosinophils (%) (Auto) 3.8 0.0-7.0 % Basophils (%) (Auto) 0.9 0.0-2.0 % Neutrophils # (Auto) 2.2 1.6-8.6 10 ^3/uL Lymphocytes # (Auto) 0.6 0.4-5.4 10 ^3/uL Monocytes # (Auto) 0.2 0-1.3 10 ^3/uL Eosinophils # (Auto) 0.1 0-0.8 10 ^3/uL Basophils # (Auto) 0 0-0.2 10 ^3/uL Nucleated Red Blood Cells 0.2 % Prothrombin Time 11.1 9.3-11.8 sec Prothrombin Time INR 1.05 0.9-1.15 Activated Partial Thromboplast Time 27.9 24.5-34.5 SEC Sodium Level 139 136-145 mmol/L Potassium Level 5.7 *H 3.5-5.1 mmol/L Chloride Level 106 98-107 mmol/L Carbon Dioxide Level 20 20-31 mmol/L Anion Gap 13 5-15 Blood Urea Nitrogen 52 H 9-23 mg/dL Creatinine 4.28 H 0.700-1.30 mg/dL Glomerular Filtration Rate Calc 15 >90 mL/min BUN/Creatinine Ratio 12.1 10.0-20.0 Serum Glucose 355 H 74-106 mg/dL Lactic Acid Level 0.6 0.4-2.0 mmol/L Calcium Level 8.5 L 8.7-10.4 mg/dL Total Bilirubin < 0.2 L 0.2-1.0 mg/dL Aspartate Amino Transferase (AST) 23 13-40 U/L Alanine Aminotransferase (ALT) 30 7-40 U/L Alkaline Phosphatase 161 H 46-116 U/L Total Protein 6.8 5.7-8.2 g/dL Albumin 3.7 3.2-4.8 g/dL Patient appropriate. No change in mentation as per family. Vitals stable. Blood sugar elevated. Kidney function elevated. He is on dialysis. Potassium elevated. Hyperkalemia treatment. Nephrology consultation. Possible sepsis. Anemia. Reviewed his previous visit. Continue monitoring. Time of 1ST Reevaluation: 02:40 Reevaluation 1ST: Unchanged Patient Education/Counseling: Diagnosis, Treatment, Other (need for admission ) Family Education/Counseling: No Family Present SEPSIS Sepsis Screen Physician Orders Electrocardigram (03/29/25 02:13) Electrocardigram (03/29/25 03:13) Electrocardigram (03/29/25 05:13) Urinalysis (03/29/25 02:15) Chest Portable (03/29/25 02:15) Accucheck (03/29/25 02:15) Blood Culture (03/29/25 02:15) Cefepime 1gm/50ml (Maxipime 1gm/50ml) (03/29/25 06:00) Notify Md If Map <65 Or Bp<90 (03/29/25 02:15) If Map<65 Start Vasopressor (03/29/25 02:15) Sepsis Reassesment After Fluid (03/29/25 03:15) Troponin-I Hs (03/29/25 05:15) Sodium Chloride 0.9% (03/29/25 02:15) Vital Signs Date Time Temp Pulse Resp B/P (MAP) Pulse Ox O2 Delivery O2 Flow Rate FiO2 03/29/25 02:58 56 03/29/25 02:41 57 03/29/25 02:04 57 03/29/25 02:03 97.5 57 20 130/53 96 97.5 Laboratory Tests Test 03/29/25 02:39 Lactic Acid Level 0.6 mmol/L (0.4-2.0) White Blood Count 3.2 10^3/uL (4.4-10.8) L Departure 1 Departure Time of Disposition: 04:13 Impression: Primary Impression: Hyperkalemia Additional Impressions: Sepsis, unspecified organism Qualified Codes: A41.9 - Sepsis, unspecified organism End stage chronic kidney disease Hyperglycemia Disposition: ADMITTED INPATIENT Admit to: Med Surg Condition: Guarded Critical Care Note Critical Care Time?: Yes (90 min-critical care time only) Stability Stability form required: No Heart Score Heart Score: Heart Score Response (Comments) Value History Highly Suspicious 2 EKG Normal 0 Age 45-64 1 Risk Factors >3 or Hx ASHD 2 Troponin Normal limit 0 Total 5 I personally scribed for SABRINA PERES MD ([email or web address]) on 03/29/25 at 02:41. Electronically submitted by Franklin Hedrick [email or web address]). SABRINA PERES MD Mar 29, 2025 02:41
[2025-03-29 03:17] LABS: Hematocrit 28.6 % (41.0-53.0); Hemoglobin 9.2 g/dL (13.5-17.5); Mean Corpuscular Hemoglobin 33.1 pg (28.0-32.0); Mean Corpuscular Volume 103.0 fL (80.0-100.0); Nucleated Red Blood Cells % 0.2 %
[2025-03-29 03:31] LABS: INR 1.05 (0.9-1.15); Partial Thromboplastin Time 27.9 SEC (24.5-34.5); Prothrombin Time 11.1 sec (9.3-11.8)
[2025-03-29 03:50] LABS: Alanine Aminotransferase 30 U/L (7-40); Albumin 3.7 g/dL (3.2-4.8); Anion Gap 13 (5-15); BUN/Creatinine Ratio 12.1 (10.0-20.0); Chloride 106 mmol/L (98-107); Sodium 139 mmol/L (136-145); Total Protein 6.8 g/dL (5.7-8.2)
[2025-03-29 04:07] LABS: Alkaline Phosphatase 161 U/L (46-116); Bilirubin, Total < 0.2 mg/dL (0.2-1.0); Blood Urea Nitrogen 52 mg/dL (9-23); Calcium 8.5 mg/dL (8.7-10.4); Carbon Dioxide 20 mmol/L (20-31); Glucose 355 mg/dL (74-106)
[2025-03-29 04:14] LABS: Potassium 5.7 mmol/L (3.5-5.1)
[2025-03-29] MEDS: ALBUTEROL SULF 2.5 MG/0.5ML(0.5%) NEB SOLN NEB ONE (04:51)
--- NOTE | 2025-03-29 05:21 | DVH ---
CHEST RADIOGRAPH Indication: sob Technique: 1 view Comparison: XY CHEST XRAY 1 VIEW on DOS: 10/01/24, XY CHEST PORTABLE on DOS: 07/08/24, XY CHEST PORTABL E on DOS: 07/06/24, CHEST PORTABLE on DOS: 04/05/22, CXRP on DOS: 04/05/22 FINDINGS: Lines and Tubes: External leads. Lungs/Pleura: Diffuse interstitial opacities with superimposed airspace disease in the right mid to l ower lung. Small right pleural effusion. No pneumothorax. Cardiomediastinum: Upper normal to mildly enlarged heart size. Central pulmonary vascular prominence . Other: No acute osseous abnormality. IMPRESSION: 1. Constellation of findings compatible with heart failure, including right pleural effusion. 2. Superimposed airspace disease in the right lung may represent atelectasis or infection.
--- NOTE | 2025-03-29 06:42 | ECG ---
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
[2025-03-29] MEDS: SODIUM CHLORIDE 0.9% 1,000 ML IV ONE ×2 (06:44→09:13)
--- NOTE | 2025-03-29 06:46 | ECG ---
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
--- NOTE | 2025-03-29 06:46 | ECG ---
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
[2025-03-29] MEDS: CALCIUM GLUC 1,000mg/50ml-NS 50 ML IV ONE (07:00)
[2025-03-29] MEDS: FUROSEMIDE 20 MG/2 ML VIAL IV ONE (07:03)
[2025-03-29] MEDS: SODIUM ZIRCONIUM CYCL 10 GM PAK PO ONE (07:05)
[2025-03-29] MEDS: SODIUM BICARB 8.4% 50Meq/50ml SYR INJ IV ONE (07:06)
[2025-03-29] MEDS: DEXTROSE (50%) 50ML SYRG IV ONE (07:22)
[2025-03-29] MEDS: InsuLIN REG 1unit/0.01ml Soln (100units/ml) IV ONE (07:29)
[2025-03-29] MEDS ORDERED: ONDANSETRON HCL 4 MG/2 ML VIAL IV PRN (07:45)
[2025-03-29] MEDS ORDERED: NITROGLYCERIN 0.4 MG SL TAB SL PRN (07:45)
--- NOTE | 2025-03-29 07:53 | DVHHP2 ---
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 Patient lives at home with his who is his primary home health caregiver. She states she called EMS because he was becoming more altered. She states his baseline is A&O x 3, but that he doesn't usually know the year or date. On assessment the patient is drowsy and slow to respond to questions. states he is mostly bedbound since his stroke in 2019, he has left hemiparalysis. She has a Whitney lift she uses at home to move him from the bed to his recliner. states she refuses to allow him to have regular insulin, that it drops his blood sugars. She states he takes 12 units of Tresiba insulin daily. 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: Other (CVA in 2019, seizures) Renal/: Chronic renal failure (on HD T,,SAT) Endocrine: Diabetes, Hypothyroidism Past Surgical History: Appendectomy Smoke: No ALCOHOL: none Drugs: None Lives: with Family Domestic Violence: Neg Review of Systems Constitutional: Yes: Malaise; No: Fever, Chills, Sweats, Weakness, Other Eyes: No: Pain, Vision change, Conjunctivae inflammation, Eyelid inflammation, Other, Redness ENT: No: Ear pain, Ear discharge, Nose pain, Nose discharge, Nose congestion, Mouth pain, Mouth swelling, Throat pain, Throat swelling, Other Respiratory: No: Cough, Dry, Shortness of breath, SOB with excertion, Wheezing, Hemoptysis, Pleuritic Pain, Sputum, Wheezing, Other Cardiovascular: No: Chest Pain, Palpitations, Orthopnea, Paroxysmal Noc. Dyspnea, Edema, Lt Headedness, Other Gastrointestinal: No: Nausea, Vomiting, Abdominal Pain, Diarrhea, Constipation, Melena, Hematochezia, Other Genitourinary: No Dysuria, No Frequency, No Incontinence, No Hematuria, No Retention, No Other Musculoskeletal: No: other, neck pain, shoulder pain, arm pain, back pain, hand pain, leg pain, foot pain Skin: No: Rash, Lesions, Jaundice, Bruising, Other Neurological: Weakness, Change in speech, Confusion; No: Numbness, Incoordination, Seizures, Other Allergies: Coded Allergies: NO KNOWN ALLERGIES (Unverified , 02/21/19) Medications Current Medications Medications Dose Ordered Sig/Tomasa Route Start Time Stop Time Status Last Admin Dose Admin Cefepime HCl 50 ml @ 12.5 mls/hr DAILY@0600 IV 03/30/25 06:00 Exam Vital Signs Vital Signs Date Time Temp Pulse Resp B/P (MAP) Pulse Ox O2 Delivery O2 Flow Rate FiO2 03/29/25 07:03 132/54 03/29/25 06:00 97.3 49 8 95 97.3 03/29/25 04:20 Nasal Cannula* 2 28 General Appearance: moderate distress, Other (drowsy, oriented x 1) HEENT: Atraumatic, PERRLA, Mucous membr. moist/pink Respiratory: Other (Diminished breath sounds, crackles bilaterally) Cardiovascular: Other (SB in 40's) Abdominal: Normal bowel sounds, Soft, No tenderness Extremities: Other (left are contracted. HD access appears infected) Skin: No significant lesion (HD access on left arm, has open wounds) Neuro: Other (mostly bedbound at baseline) Labs/Xrays Labs Test 03/29/25 07:24 03/29/25 03:26 03/29/25 02:39 Range/Units POC Glucose 283 H 70-106 mg/dl Troponin I High Sensitivity 14 </=54 ng/L White Blood Count 3.2 L 4.4-10.8 10^3/uL Red Blood Count 2.78 L 4.5-5.90 10^6/uL Hemoglobin 9.2 L 13.5-17.5 g/dL Hematocrit 28.6 L 41.0-53.0 % Mean Corpuscular Volume 103.0 H 80.0-100.0 fL Mean Corpuscular Hemoglobin 33.1 H 28.0-32.0 pg Mean Corpuscular Hemoglobin Concent 32.1 32.0-36.0 g/dL Red Cell Distribution Width 15.7 H 11.8-14.3 % Platelet Count 156 140-450 10^3/uL Mean Platelet Volume 7.5 6.9-10.8 fL Neutrophils (%) (Auto) 69.8 37.0-80.0 % Lymphocytes (%) (Auto) 19.0 10.0-50.0 % Monocytes (%) (Auto) 6.5 0.0-12.0 % Eosinophils (%) (Auto) 3.8 0.0-7.0 % Basophils (%) (Auto) 0.9 0.0-2.0 % Neutrophils # (Auto) 2.2 1.6-8.6 10 ^3/uL Lymphocytes # (Auto) 0.6 0.4-5.4 10 ^3/uL Monocytes # (Auto) 0.2 0-1.3 10 ^3/uL Eosinophils # (Auto) 0.1 0-0.8 10 ^3/uL Basophils # (Auto) 0 0-0.2 10 ^3/uL Nucleated Red Blood Cells 0.2 % Prothrombin Time 11.1 9.3-11.8 sec Prothrombin Time INR 1.05 0.9-1.15 Activated Partial Thromboplast Time 27.9 24.5-34.5 SEC Sodium Level 139 136-145 mmol/L Potassium Level 5.7 *H 3.5-5.1 mmol/L Chloride Level 106 98-107 mmol/L Carbon Dioxide Level 20 20-31 mmol/L Anion Gap 13 5-15 Blood Urea Nitrogen 52 H 9-23 mg/dL Creatinine 4.28 H 0.700-1.30 mg/dL Glomerular Filtration Rate Calc 15 >90 mL/min BUN/Creatinine Ratio 12.1 10.0-20.0 Serum Glucose 355 H 74-106 mg/dL Lactic Acid Level 0.6 0.4-2.0 mmol/L Calcium Level 8.5 L 8.7-10.4 mg/dL Total Bilirubin < 0.2 L 0.2-1.0 mg/dL Aspartate Amino Transferase (AST) 23 13-40 U/L Alanine Aminotransferase (ALT) 30 7-40 U/L Alkaline Phosphatase 161 H 46-116 U/L Total Protein 6.8 5.7-8.2 g/dL Albumin 3.7 3.2-4.8 g/dL CHEST RADIOGRAPH FINDINGS: Lines and Tubes: External leads. Lungs/Pleura: Diffuse interstitial opacities with superimposed airspace disease in the right mid to lower lung. Small right pleural effusion. No pneumothorax. Cardiomediastinum: Upper normal to mildly enlarged heart size. Central pulmonary vascular prominence. Other: No acute osseous abnormality. IMPRESSION: 1. Constellation of findings compatible with heart failure, including right pleural effusion. 2. Superimposed airspace disease in the right lung may represent atelectasis or infection. SEPSIS Sepsis Screen Date sepsis recognized/suspect: Mar 29, 2025 Time Sepsis recognized/suspect: 020 Recent Procedure: No On Antibiotic Therapy: No Respiratory Rate >20: No Heart Rate >90: No Temp<36 C (96.8 F) or >38.3 C: No SBP <90 or MAP <65 mmHG: No New Acute Mental Status Change: No Is the patient on CPAP, BIPAP,: No Physician Orders Urinalysis (03/29/25 02:15) Chest Portable (03/29/25 02:15) Accucheck (03/29/25 02:15) Blood Culture (03/29/25 02:15) Notify Md If Map <65 Or Bp<90 (03/29/25 02:15) If Map<65 Start Vasopressor (03/29/25 02:15) Sepsis Reassesment After Fluid (03/29/25 03:15) Sodium Chloride 0.9% (03/29/25 02:15) Potassium (03/29/25 08:14) *[facility] (03/29/25 04:15) Cefepime 1gm/50ml (Maxipime 1gm/50ml) (03/30/25 06:00) Admit (03/29/25 07:33) Code Status (03/29/25 07:33) Renal Standard(2gna,3gk,Lopho) (03/29/25 Breakfast) Sodium Chloride Lock (Saline Lock Ns) (03/29/25 14:00) Ondansetron Hcl (Zofran) (03/29/25 07:45) Docusate Sodium Capsule (Colace Capsule) (03/29/25 10:00) Complete Blood Count (03/30/25 04:00) Comprehensive Metabolic Panel (03/30/25 04:00) Condition: Serious (03/29/25 07:33) Acetaminophen Tablet (Tylenol Tablet) (03/29/25 07:45) Nitroglycerin Sublingual (Ntrostat Subli (03/29/25 07:45) Morphine Sulfate Injection (03/29/25 07:45) Stat Ekg For Chest Pain (03/29/25 07:33) Notify Md Of Changes From Base (03/29/25 07:33) [employer] [place] For 24 Hours (03/29/25 07:33) Emergency Dysrhythmia Protocol (03/29/25 07:33) Rhythm Strips Once Every Shift (03/29/25 07:33) Oxygen By Nasal Cannula (03/29/25 07:33) Levetiracetam Ivpb Keppra (03/29/25 10:00) Atorvastatin (Lipitor) (03/29/25 17:30) Gabapentin Capsule (Neurontin Capsule) (03/29/25 17:30) Levothyroxine Tablet (Synthroid Tablet) (03/30/25 07:00) Phenytoin Suspension (Dilantin Suspensio (03/29/25 14:00) (Nf) Amlodipine Besylate (03/29/25 10:00) (Nf) Aspirin (Aspirin Low Dose) (03/29/25 10:00) (Nf) Empagliflozin (Jardiance) (03/29/25 10:00) (Nf) Hydralazine Hcl (03/29/25 10:00) (Nf) Paroxetine Hydrochloride (03/29/25 10:00) (Nf) Polynuclear Iron(Iii)-Oxyhydro ([place]ade (03/29/25 14:00) Vital Signs Date Time Temp Pulse Resp B/P (MAP) Pulse Ox O2 Delivery O2 Flow Rate FiO2 03/29/25 07:03 132/54 03/29/25 06:00 97.3 49 8 130/51 (77) 95 97.3 03/29/25 04:59 55 03/29/25 04:20 18 98 Nasal Cannula* 2 28 03/29/25 02:58 56 03/29/25 02:41 57 03/29/25 02:04 57 03/29/25 02:03 97.5 57 20 130/53 96 97.5 Laboratory Tests Test 03/29/25 02:39 Lactic Acid Level 0.6 mmol/L (0.4-2.0) White Blood Count 3.2 10^3/uL (4.4-10.8) L Medications Medications Dose Ordered Sig/Tomasa Route Start Time Stop Time Status Last Admin Dose Admin Albuterol 20 mg ONCE ONCE NEB 03/29/25 04:15 03/29/25 04:16 DC 03/29/25 04:51 20 MG Calcium Gluconate/ Sodium Chloride 50 ml @ 120 mls/hr ONCE ONCE IV 03/29/25 04:15 03/29/25 04:39 DC 03/29/25 07:00 120 MLS/HR Dextrose 50 ml ONCE ONCE IV 03/29/25 04:15 03/29/25 04:16 DC 03/29/25 07:22 50 ML Furosemide 20 mg ONCE ONCE IV 03/29/25 04:15 03/29/25 04:16 DC 03/29/25 07:03 20 MG Insulin Human Regular 10 units ONCE ONCE IV 03/29/25 04:15 03/29/25 04:16 DC 03/29/25 07:29 10 UNITS Sodium Bicarbonate 50 ml ONCE ONCE IV 03/29/25 04:15 03/29/25 04:16 DC 03/29/25 07:06 50 ML Zirconium Oxide 10 gm ONCE ONCE PO 03/29/25 04:15 03/29/25 04:16 DC 03/29/25 07:05 10 GM Assessment/Plan Assessment/Plan Assessment: Hyperkalemia, Metabolic encephalopathy, Fluid overload, Possible pneumonia, Wound to HD access, ESRD on HD, CHF, COPD, Plan: Admit to [facility], Nephrology consult, Hyperkalemia protocol, Manage/Monitor electrolytes closely, Wound care, Wound Culture, Breathing treatments as needed, Accu checks Q 6 hours, no sliding scale, Supplemental oxygen as needed, Home coreg dose held due to bradycardia, Home Keppra dose changed to IV due to ALOC, switch back to PO once patient is more awake, Home medications reconciled, Plan discussed with: Patient My Orders Orders - MIRTA BARRON HANDLING TECH Procedure Category Date Status Time Admit ADMIT 03/29/25 Verified 07:33 Code Status CODE 03/29/25 Verified 07:33 Renal DIET 03/29/25 Verified Standard(2gna,3gk,Lopho) Breakfast Sodium Chloride Lock PHA 03/29/25 Verified (Saline Lock Ns) 14:00 Ondansetron Hcl PHA 03/29/25 Verified (Zofran) 07:45 Docusate Sodium PHA 03/29/25 Verified Capsule (Colace 10:00 Complete Blood Count LAB 03/30/25 Verified 04:00 Comprehensive LAB 03/30/25 Verified Metabolic Panel 04:00 Condition: Serious JAMILA 03/29/25 Verified 07:33 Acetaminophen Tablet PHA 03/29/25 Verified (Tylenol Tablet) 07:45 Nitroglycerin PHA 03/29/25 Verified Sublingual (Ntrostat 07:45 Morphine Sulfate PHA 03/29/25 Verified Injection 07:45 Stat Ekg For Chest JAMILA 03/29/25 Verified Pain 07:33 Notify Md Of Changes [facility] 03/29/25 Verified From Base 07:33 President [place] For [facility] 03/29/25 Verified 24 Hours 07:33 Emergency Dysrhythmia JAMILA 03/29/25 Verified Protocol 07:33 Rhythm Strips Once AJMILA 03/29/25 Verified Every Shift 07:33 Oxygen By Nasal RT 03/29/25 Verified Cannula 07:33 Levetiracetam Ivpb PHA 03/29/25 Verified Keppra 10:00 Atorvastatin (Lipitor) PHA 03/29/25 Verified 17:30 Gabapentin Capsule PHA 03/29/25 Verified (Neurontin Capsule) 17:30 Levothyroxine Tablet PHA 03/30/25 Verified (Synthroid Tablet) 07:00 Phenytoin Suspension PHA 03/29/25 Verified (Dilantin Suspensio 14:00 (Nf) Amlodipine PHA 03/29/25 Verified Besylate 10:00 (Nf) Aspirin (Aspirin PHA 03/29/25 Verified Low Dose) 10:00 (Nf) Empagliflozin PHA 03/29/25 Verified (Jardiance) 10:00 (Nf) Hydralazine Hcl PHA 03/29/25 Verified 10:00 (Nf) Paroxetine PHA 03/29/25 Verified Hydrochloride 10:00 (Nf) Polynuclear PHA 03/29/25 Verified Iron(Iii)-Oxyhydro 14:00 Date of Service: Mar 29, 2025 Billing Provider: MIRTA BARRON Common Visit Codes: [id number] INP/OBS CARE (MOD) MIRTA BARRON Mar 29, 2025 07:53
[2025-03-29] MEDS ORDERED: MORPHINE SULFATE 4 MG/ML SYR/VIAL IV PRN (08:00)
[2025-03-29] MEDS: AZITHROMYCIN 500MG/ 250ML 250 ML IV ONE (09:08)
--- NOTE | 2025-03-29 09:46 | DVHINCON2 ---
Date of service: Mar 29, 2025 Referring Physician Brennan Reason for Consultation End-stage renal disease to manage hemodialysis History of Present Illness Patient is a 60-year-old male with past medical history significant for CHF, COPD, CVA (residual left sided weakness; baseline - alert and oriented x1), DM, ESRD (w/HD T//Sat), HTN, bed-bound and Congestive heart failure Is admitted for chest pain and shortness of breath Past Medical History PAST MEDICAL HISTORY: CHF, COPD, CVA (residual left sided weakness; baseline - alert and oriented x1), DM, ESRD (w/HD T//Sat), HTN Bed bound PNA Cardiomegaly Past Surgical History Surgical History: Appendectomy Allergies: Coded Allergies: NO KNOWN ALLERGIES (Unverified , 02/21/19) Home Meds Reported Medications Levetiracetam (Levetiracetam) 250 Mg Tab, 1 TAB PO BID for 90 Days, #170 10/06/24 Empagliflozin (Jardiance) 25 Mg Tab, 1 TAB PO DAILY for 42 Days, #42 10/06/24 Carvedilol (Carvedilol) 12.5 Mg Tab, 1 TAB PO BID for 90 Days, #180 10/06/24 Paroxetine Hydrochloride (Paroxetine Hydrochloride) 10 Mg Tab, 1 TAB PO DAILY for 90 Days, #90 10/06/24 Phenytoin (Dilantin-125) 125 Mg/5 Ml Mercedes, 8 ML PO DAILY@1400 for 29 Days, #237 ML SHAKE LIQUID AND TAKE 8 ML BY MOUTH DAILY AT 2 PM 07/03/24 Omeprazole (Omeprazole Dr) 40 Mg Cap, 40 MG PO DAILY, CAP 07/03/24 Levothyroxine Sodium (Levothyroxine Sodium) 25 Mcg Tab, 25 MCG PO QAM, TAB TAKE 1 TABLET BY MOUTH DAILY IN THE MORNING ON AN EMPTY STOMACH 07/03/24 Polynuclear Iron(III)-Oxyhydro (Velphoro) 500 Mg Chw, 500 MG PO TID, TAB.CHEW 07/02/24 Atorvastatin Calcium (ATORVASTATIN CALCIUM) 20 Mg Tab, 1 TAB PO DAILY@DINNER, #30 TAB 5 Refills 07/02/24 Gabapentin (Gabapentin) 100 Mg Cap, 1 CAP PO DAILY@DINNER, #90 CAP 2 Refills 07/02/24 Hydralazine Hcl (Hydralazine Hcl) 100 Mg Tab, 1 TAB PO BID, #90 TAB 5 Refills 07/02/24 Aspirin (Aspirin Low Dose) 81 Mg Chw, 1 TAB PO DAILY, #30 TAB 3 Refills 07/02/24 Amlodipine Besylate (Amlodipine Besylate) 10 Mg Tab, 1 TAB PO DAILY for 90 Days, #90 02/22/19 Discontinued Reported Medications Levothyroxine Sodium (Levothyroxine Sodium) 25 Mcg Tab, 1 TAB PO QAM for 90 Days, #90 10/06/24 Phenytoin (Dilantin-125) 125 Mg/5 Ml Mercedes, 8 ML PO DAILY@2PM for 29 Days, #237 SHAKE LIQUID AND TAKE 8 ML BY MOUTH AT 2 PM. 10/06/24 Hydralazine Hcl (Hydralazine Hcl) 100 Mg Tab, 1 TAB PO TID for 90 Days, #180 10/06/24 Amlodipine Besylate (Amlodipine Besylate) 10 Mg Tab, 1 TAB PO DAILY 10/02/24 Levetiracetam (Levetiracetam) 500 Mg Tab, 1 TAB PO BID 10/02/24 Paroxetine Hydrochloride (Paroxetine Hydrochloride) 10 Mg Tab, 10 MG PO DAILY, TAB 07/03/24 Empagliflozin (Jardiance) 25 Mg Tab, 25 MG PO DAILY, TAB 07/03/24 Levetiracetam (Levetiracetam) 250 Mg Tab, 250 MG PO BID, TAB 07/03/24 Amlodipine Besylate (Amlodipine Besylate) 10 Mg Tab, 10 MG PO DAILY, TAB 07/03/24 Carvedilol (Carvedilol) 12.5 Mg Tab, 1 TAB PO BID, #180 TAB 1 Refill 07/02/24 Gabapentin (Gabapentin) 100 Mg Cap, 1 TAB PO DAILY for 42 Days, #42 04/06/22 Atorvastatin Calcium (ATORVASTATIN CALCIUM) 20 Mg Tab, 1 TAB PO DAILY for 90 Days, #90 02/22/19 Current Medications Current Medications Medications (Trade) Dose Ordered Sig/Tomasa Route PRN Reason Start Time Stop Time Status Last Admin Cefepime HCl 50 ml @ 12.5 mls/hr HS IV 03/29/25 22:00 Sodium Chloride (Saline Lock Ns) 10 ml Q8HR IV 03/29/25 14:00 Ondansetron HCl (Zofran) 4 mg Q4HP PRN IV NAUSEA / VOMITING 03/29/25 07:45 Docusate Sodium (Colace Capsule) 100 mg BID PO 03/29/25 10:00 03/29/25 10:00 Acetaminophen (Tylenol Tablet) 650 mg Q6HP PRN PO PAIN SCALE 1-3 OR TEMP>100.4 03/29/25 07:45 03/29/25 10:19 Nitroglycerin (Ntrostat Sublingual) 0.4 mg Q5MINP PRN SL FOR CHEST PAIN 03/29/25 07:45 Morphine Sulfate 2 mg Q30M PRN IV FOR CHEST PAIN 03/29/25 08:00 Levetiracetam 100 ml @ 400 mls/hr BID IV 03/29/25 10:00 03/29/25 10:16 Atorvastatin Calcium (Lipitor) 20 mg HS PO 03/29/25 22:00 Gabapentin (Neurontin Capsule) 100 mg DAILY@DINNER PO 03/29/25 17:30 Levothyroxine Sodium (Synthroid Tablet) 25 mcg QAM PO 03/30/25 07:00 Phenytoin Sodium (Dilantin Suspension) 200 mg DAILY@1400 PO 03/29/25 14:00 Amlodipine Besylate (Norvasc Tablet) 10 mg DAILY PO 03/29/25 10:00 03/29/25 10:20 Aspirin 81 mg DAILY PO 03/29/25 10:00 03/29/25 10:19 Patient Own Medication 1 tab DAILY PO 03/29/25 10:00 03/29/25 10:00 Hydralazine HCl (Apresoline Tablet) 100 mg BID PO 03/29/25 10:00 03/29/25 11:02 DC Paroxetine HCl (Paxil Tablet) 10 mg DAILY PO 03/29/25 10:00 03/29/25 10:20 Patient Own Medication 500 mg TID PO 03/29/25 14:00 Hydralazine HCl (Apresoline Tablet) 100 mg BID PO 03/29/25 11:00 Diagnostic Test (Pha) (Accu-Chek Comfort Curve T) 1 strip Q6H 03/29/25 11:30 UNV Dextrose 50 ml UD PRN IV BLOOD SUGAR LESS THAN 70 03/29/25 11:30 UNV Family History: Diabetes mellitus G8 MOTHER G8 SISTER FH: throat cancer G8 FATHER G8 FATHER FH: throat cancer G8 FATHER G8 FATHER Review of Systems All 12 item review of systems reviewed with the patient nonsignificant except what is mentioned in the history of present illness H&P Exam Vital Signs/I&O Vital Sign Date Time Temp Pulse Resp B/P (MAP) Pulse Ox O2 Delivery O2 Flow Rate FiO2 03/29/25 11:03 86 18 97 Nasal Cannula* 2 28 03/29/25 11:02 133/60 (84) 03/29/25 08:52 97.4 97.4 Physical Exam Patient lying comfortably in bed Lungs clear to auscultation bilaterally Cardiac exam regular rate and rhythm GI soft nontender was normal Extremities no clubbing cyanosis or edema Neuro patient is lethargic but arousable Labs/Diagnostic Data Labs/Diagnostic Data Laboratory Tests Test 03/29/25 08:48 03/29/25 08:13 03/29/25 07:24 03/29/25 03:26 Range/Units POC Glucose 279 H 283 H 70-106 mg/dl Potassium Level 5.2 H 3.5-5.1 mmol/L Troponin I High Sensitivity 14 </=54 ng/L Test 03/29/25 02:39 Range/Units White Blood Count 3.2 L 4.4-10.8 10^3/uL Red Blood Count 2.78 L 4.5-5.90 10^6/uL Hemoglobin 9.2 L 13.5-17.5 g/dL Hematocrit 28.6 L 41.0-53.0 % Mean Corpuscular Volume 103.0 H 80.0-100.0 fL Mean Corpuscular Hemoglobin 33.1 H 28.0-32.0 pg Mean Corpuscular Hemoglobin Concent 32.1 32.0-36.0 g/dL Red Cell Distribution Width 15.7 H 11.8-14.3 % Platelet Count 156 140-450 10^3/uL Mean Platelet Volume 7.5 6.9-10.8 fL Neutrophils (%) (Auto) 69.8 37.0-80.0 % Lymphocytes (%) (Auto) 19.0 10.0-50.0 % Monocytes (%) (Auto) 6.5 0.0-12.0 % Eosinophils (%) (Auto) 3.8 0.0-7.0 % Basophils (%) (Auto) 0.9 0.0-2.0 % Neutrophils # (Auto) 2.2 1.6-8.6 10 ^3/uL Lymphocytes # (Auto) 0.6 0.4-5.4 10 ^3/uL Monocytes # (Auto) 0.2 0-1.3 10 ^3/uL Eosinophils # (Auto) 0.1 0-0.8 10 ^3/uL Basophils # (Auto) 0 0-0.2 10 ^3/uL Nucleated Red Blood Cells 0.2 % Prothrombin Time 11.1 9.3-11.8 sec Prothrombin Time INR 1.05 0.9-1.15 Activated Partial Thromboplast Time 27.9 24.5-34.5 SEC Sodium Level 139 136-145 mmol/L Potassium Level 5.7 *H 3.5-5.1 mmol/L Chloride Level 106 98-107 mmol/L Carbon Dioxide Level 20 20-31 mmol/L Anion Gap 13 5-15 Blood Urea Nitrogen 52 H 9-23 mg/dL Creatinine 4.28 H 0.700-1.30 mg/dL Glomerular Filtration Rate Calc 15 >90 mL/min BUN/Creatinine Ratio 12.1 10.0-20.0 Serum Glucose 355 H 74-106 mg/dL Lactic Acid Level 0.6 0.4-2.0 mmol/L Calcium Level 8.5 L 8.7-10.4 mg/dL Total Bilirubin < 0.2 L 0.2-1.0 mg/dL Aspartate Amino Transferase (AST) 23 13-40 U/L Alanine Aminotransferase (ALT) 30 7-40 U/L Alkaline Phosphatase 161 H 46-116 U/L Troponin I High Sensitivity 14 </=54 ng/L Total Protein 6.8 5.7-8.2 g/dL Albumin 3.7 3.2-4.8 g/dL Assessment End-stage renal disease on hemodialysis Acute on chronic respiratory failure Congestive heart failure exacerbation CVA Hyperkalemia Chest pain Hypertension Diabetes mellitus type 2 Anemia of chronic kidney disease Recommendations Hemodialysis tomorrow Epogen 12800 subQ 3 times weekly Strict I&Os Lokelma 10 g p.o. Low K renal diet Blood pressure control Cardiology consult We will continue to follow Total care time 30 minutes Patient seen and examined by myself. I discussed my plan of care, his and the primary nurse at the bedside Plan discussed with: Patient, Spouse MADKOUR,HOSAMELDIN H MD Mar 29, 2025 09:46
[2025-03-29] MEDS: DOCUSATE SOD 100 MG CAP PO SCH (10:00)
[2025-03-29] MEDS: CEFEPIME 1GM/50ML D5W or NS KIT IV ONE (10:16)
[2025-03-29] MEDS: levETIRAcetam 500 mg/100ml 100 ML IV SCH (10:16)
[2025-03-29] MEDS: ACETAMINOPHEN 325 MG TAB PO PRN (10:19)
[2025-03-29] MEDS: PARoxetine 20 MG TAB PO SCH (10:20)
[2025-03-29] MEDS ORDERED: ACCU-CHEK COMFORT CURVE STRIP VI SCH (11:30)
[2025-03-29] MEDS ORDERED: IPRATROPIUM BROM 0.5 MG/2.5ML INH SOL NEB PRN (11:30)
[2025-03-29] MEDS ORDERED: DEXTROSE (50%) 50ML SYRG IV PRN ×2 (11:30→13:15)
[2025-03-29] MEDS ORDERED: ALBUTEROL SULF 2.5 MG/0.5ML(0.5%) NEB SOLN NEB PRN (11:30)
--- NOTE | 2025-03-29 13:10 | DVHPN2 ---
Progress Note Date Seen: Mar 29, 2025 Medical Necessity Reason Pt with a Central, PICC or Fol: No Subjective Patient reports: No new complaints Review of Systems: HEENT:Normal, CVS:Normal, RESPIRATORY:Normal, GI:Normal, :Normal, MSK:Normal, NEURO:Normal Objective vital signs Vital Sign Date Time Temp Pulse Resp B/P (MAP) Pulse Ox O2 Delivery O2 Flow Rate FiO2 03/29/25 11:49 95 Nasal Cannula 2.0 03/29/25 11:49 28 03/29/25 11:43 97.4 86 18 133/60 97.4 medications Current Medications Medications Dose Ordered Sig/Tomasa Route Start Time Stop Time Status Last Admin Dose Admin Sodium Chloride 10 ml Q8HR IV 03/29/25 14:00 Ondansetron HCl 4 mg Q4HP PRN IV 03/29/25 07:45 Docusate Sodium 100 mg BID PO 03/29/25 10:00 03/29/25 10:00 100 MG Acetaminophen 650 mg Q6HP PRN PO 03/29/25 07:45 03/29/25 10:19 650 MG Nitroglycerin 0.4 mg Q5MINP PRN SL 03/29/25 07:45 Morphine Sulfate 2 mg Q30M PRN IV 03/29/25 08:00 Levetiracetam 100 ml @ 400 mls/hr BID IV 03/29/25 10:00 03/29/25 10:16 400 MLS/HR Atorvastatin Calcium 20 mg HS PO 03/29/25 22:00 Gabapentin 100 mg DAILY@DINNER PO 03/29/25 17:30 Levothyroxine Sodium 25 mcg QAM PO 03/30/25 07:00 Phenytoin Sodium 200 mg DAILY@1400 PO 03/29/25 14:00 Amlodipine Besylate 10 mg DAILY PO 03/29/25 10:00 03/29/25 10:20 10 MG Aspirin 81 mg DAILY PO 03/29/25 10:00 03/29/25 10:19 81 MG Patient Own Medication 1 tab DAILY PO 03/29/25 10:00 03/29/25 10:00 1 TAB Paroxetine HCl 10 mg DAILY PO 03/29/25 10:00 03/29/25 10:20 10 MG Patient Own Medication 500 mg TID PO 03/29/25 14:00 Hydralazine HCl 100 mg BID PO 03/29/25 11:00 Diagnostic Test (Pha) 1 strip Q6H 03/29/25 11:30 Dextrose 50 ml UD PRN IV 03/29/25 11:30 Ipratropium [place] 0.5 mg Q4HPRN PRN NEB 03/29/25 11:30 Albuterol 2.5 mg Q4HPRN PRN NEB 03/29/25 11:30 Patient Own Medication 12 unit QAM SUBCUT 03/30/25 07:00 UNV Examination: GENERAL:Normal, HEENT:Normal, NECK:Normal, LUNGS:Normal, LUNGS:Abnormal (on oxygen), CVS:Normal, ABDOMEN:Normal, MSK:Normal, SKIN:Normal, NEURO:Normal, NEURO:Abnormal (left weakness), :Normal laboratory and microbiology Laboratory Tests 03/29/25 08:13 03/29/25 02:39 Test 03/29/25 02:39 Range/Units Serum Glucose 355 H 74-106 mg/dL Problem List/Assessment/Plan Problem List/Assessment/Plan #1 acute on chronic diastolic heart failure: dialysis, echo #2 hyperkalemia: monitor #3 h/o cva with left weakness #4 dm: ssi, tresiba #5 htn #6 hypothyroidism: check tsh #7 seizure disorder: cont meds, dilantin level #8 copd #9 encephalopathy- metabolic advance care planning- full code- time spent 19 mins Plan discussed with: Patient, Spouse My Orders My Orders Orders - RANDY MCLAUGHLIN MD Procedure Category Date Status Time (Nf) Tresiba PHA 03/30/25 Logged 07:00 Date of Service: Mar 29, 2025 Billing Provider: RANDY MCLAUGHLIN MD Common Visit Codes: [id number] INP/OBS CARE(HIGH) Secondary Visit Codes: [id number] CARE PLAN 30 MINUTES RANDY MCLAUGHLIN MD Mar 29, 2025 13:10
[2025-03-29] MEDS: [UNRECOGNIZED DRUG - OTHER] PO SCH (14:00)
[2025-03-29] MEDS: PHENYTOIN 100 MG/4 ML SUSP PO SCH (14:00)
[2025-03-29] MEDS: SUCROFERRIC OXYHYDROXIDE PO SCH (14:00)
[2025-03-29] MEDS: SODIUM CHLOR 0.9% PF (SALINE LOCK) 10ML VIAL/SYR IV SCH (14:00)
[2025-03-29] MEDS: ACCU-CHEK COMFORT CURVE STRIP VI SCH (17:00)
[2025-03-29] MEDS: InsuLIN REG 1unit/0.01ml Soln (100units/ml) SC SCH (17:00)
[2025-03-29] MEDS: GABAPENTIN 100 MG CAP PO SCH (18:27)
[2025-03-29] MEDS: ATORVASTATIN 20 MG TAB PO SCH (21:21)
[2025-03-29] MEDS ORDERED: CEFEPIME 1GM/50ML 50 ML IV SCH (22:00)
[2025-03-30] VITALS (28 sets, daily range): BP systolic 87–148; BP diastolic 25–88; PULSE 54–65; RESP 13–19; TEMP 97.2–99.9; O2SAT 96–99
--- NOTE | 2025-03-30 03:58 | DVH ---
CHEST RADIOGRAPH Indication: CHF Technique: Single frontal view of the chest was obtained COMPARISON: XY CHEST PORTABLE on DOS: 03/29/25, XY CHEST XRAY 1 VIEW on DOS: 10/01/24, XY CHEST PORTABL E on DOS: 07/08/24, XY CHEST PORTABLE on DOS: 07/06/24, CHEST PORTABLE on DOS: 04/05/22 FINDINGS: Lines and Tubes: None Lungs: Stable appearing bilateral pleural effusions and patchy multifocal bilateral predominantly per ihilar and bibasilar pulmonary airspace disease. No pneumothorax. Cardiomediastinal contours: Cardiomegaly. Bones: Unremarkable IMPRESSION: 1. Stable appearing bilateral pleural effusions and patchy multifocal bilateral predominantly perihil ar and bibasilar pulmonary airspace disease. 2. Cardiomegaly.
[2025-03-30 05:47] LABS: Hematocrit 25.7 % (41.0-53.0); Hemoglobin 8.6 g/dL (13.5-17.5); Mean Corpuscular Hemoglobin 33.2 pg (28.0-32.0); Mean Corpuscular Volume 99.6 fL (80.0-100.0); Nucleated Red Blood Cells % 0.1 %
[2025-03-30 05:58] LABS: Alanine Aminotransferase 29 U/L (7-40); Albumin 3.3 g/dL (3.2-4.8); Anion Gap 12 (5-15); BUN/Creatinine Ratio 15.3 (10.0-20.0); Carbon Dioxide 21 mmol/L (20-31); Chloride 107 mmol/L (98-107); Sodium 140 mmol/L (136-145); Total Protein 5.9 g/dL (5.7-8.2)
[2025-03-30 05:59] LABS: Alkaline Phosphatase 142 U/L (46-116); Blood Urea Nitrogen 77 mg/dL (9-23); Calcium 8.4 mg/dL (8.7-10.4); Glucose 190 mg/dL (74-106)
[2025-03-30 06:01] LABS: Potassium 6.5 mmol/L (3.5-5.1)
[2025-03-30 06:03] LABS: Bilirubin, Total < 0.2 mg/dL (0.2-1.0)
[2025-03-30] MEDS: LEVOTHYROXINE SODIUM 25 MCG TAB PO SCH (06:18)
[2025-03-30] MEDS: TRESIBA 200 UNIT/ML SC SCH (06:25)
[2025-03-30] MEDS: SODIUM CHL 0.9% 1000 ML BAG XX ONE (07:00)
[2025-03-30] MEDS: ALBUTEROL SULF 2.5 MG/0.5ML(0.5%) NEB SOLN NEB ONE (07:35)
[2025-03-30] MEDS: CALCIUM GLUC 1,000mg/50ml-NS 50 ML IV ONE (07:43)
[2025-03-30] MEDS: FUROSEMIDE 20 MG/2 ML VIAL IV ONE (07:47)
[2025-03-30] MEDS: SODIUM ZIRCONIUM CYCL 10 GM PAK PO ONE (07:47)
[2025-03-30] MEDS: SODIUM BICARB 8.4% 50Meq/50ml SYR INJ IV ONE (07:56)
[2025-03-30] MEDS: DEXTROSE (50%) 50ML SYRG IV ONE (08:07)
[2025-03-30] MEDS: InsuLIN REG 1unit/0.01ml Soln (100units/ml) IV ONE (08:29)
[2025-03-30] MEDS ORDERED: AZITHROMYCIN 500MG/ 250ML 250 ML IV SCH (10:00)
[2025-03-30] MEDS ORDERED: VANCOMYCIN PER PHARMACY 0 MG IV SCH (11:00)
--- NOTE | 2025-03-30 11:03 | DVHPN2 ---
Progress Note Date Seen: Mar 30, 2025 Medical Necessity Reason Pt with a Central, PICC or Fol: No Subjective Patient reports: No new complaints Review of Systems: HEENT:Normal, CVS:Normal, RESPIRATORY:Normal, GI:Normal, :Normal, MSK:Normal, NEURO:Normal Objective vital signs Vital Sign Date Time Temp Pulse Resp B/P (MAP) Pulse Ox O2 Delivery O2 Flow Rate FiO2 03/30/25 10:00 98.6 59 15 109/31 (57) 98 209.5 03/30/25 08:00 Nasal Cannula* 1 24 Total Intake and Output 03/29/25 03/29/25 03/30/25 15:00 23:00 07:00 Intake Total 130 ml 20 ml Output Total 0 ml 0 ml Balance 130 ml 20 ml medications Current Medications Medications Dose Ordered Sig/Tomasa Route Start Time Stop Time Status Last Admin Dose Admin Sodium Chloride 10 ml Q8HR IV 03/29/25 14:00 03/30/25 05:17 10 ML Ondansetron HCl 4 mg Q4HP PRN IV 03/29/25 07:45 Docusate Sodium 100 mg BID PO 03/29/25 10:00 03/29/25 21:21 100 MG Acetaminophen 650 mg Q6HP PRN PO 03/29/25 07:45 03/29/25 10:19 650 MG Nitroglycerin 0.4 mg Q5MINP PRN SL 03/29/25 07:45 Morphine Sulfate 2 mg Q30M PRN IV 03/29/25 08:00 Levetiracetam 100 ml @ 400 mls/hr BID IV 03/29/25 10:00 03/29/25 21:21 400 MLS/HR Atorvastatin Calcium 20 mg HS PO 03/29/25 22:00 03/29/25 21:21 20 MG Gabapentin 100 mg DAILY@DINNER PO 03/29/25 17:30 03/29/25 18:27 100 MG Levothyroxine Sodium 25 mcg QAM PO 03/30/25 07:00 03/30/25 06:18 25 MCG Phenytoin Sodium 200 mg DAILY@1400 PO 03/29/25 14:00 Amlodipine Besylate 10 mg DAILY PO 03/29/25 10:00 03/29/25 10:20 10 MG Aspirin 81 mg DAILY PO 03/29/25 10:00 03/29/25 10:19 81 MG Patient Own Medication 1 tab DAILY PO 03/29/25 10:00 03/29/25 10:00 1 TAB Paroxetine HCl 10 mg DAILY PO 03/29/25 10:00 03/29/25 10:20 10 MG Patient Own Medication 500 mg TID PO 03/29/25 14:00 Hydralazine HCl 100 mg BID PO 03/29/25 11:00 03/29/25 21:20 100 MG Ipratropium [place] 0.5 mg Q4HPRN PRN NEB 03/29/25 11:30 Albuterol 2.5 mg Q4HPRN PRN NEB 03/29/25 11:30 Patient Own Medication 12 unit QAM SC 03/30/25 07:00 Diagnostic Test (Pha) 1 strip ACHS 03/29/25 17:00 03/30/25 06:09 1 STRIP Insulin Human Regular ACHS SC 03/29/25 17:00 Dextrose 50 ml UD PRN IV 03/29/25 13:15 Examination: GENERAL:Normal, HEENT:Normal, NECK:Normal, LUNGS:Normal, CVS:Normal, ABDOMEN:Normal, MSK:Normal, SKIN:Normal, NEURO:Normal, NEURO:Abnormal (left weakness), :Normal laboratory and microbiology Laboratory Tests 03/30/25 05:20 Test 03/30/25 05:20 Range/Units Serum Glucose 190 #H 74-106 mg/dL Microbiology Date/Time Source Procedure Growth Status 03/29/25 02:39 Blood Blood Culture - Preliminary NO GROWTH AFTER 24 HOURS OF INCUBATION. Resulted Problem List/Assessment/Plan Problem List/Assessment/Plan #1 acute on chronic diastolic heart failure: dialysis, echo #2 hyperkalemia: dialysis #3 h/o cva with left weakness #4 dm: ssi, tresiba #5 htn #6 hypothyroidism: check tsh #7 seizure disorder: cont meds, dilantin level #8 copd #9 encephalopathy- metabolic #10 likely pneumonia/aspiration: iv zosyn, vanc advance care planning- full code- time spent 19 mins Plan discussed with: Patient, Spouse My Orders My Orders Orders - RANDY MCLAUGHLIN MD Procedure Category Date Status Time (Nf) Tresiba PHA 03/30/25 In Process 07:00 Chest Portable XY 03/30/25 Resulted 06:00 Glucose Blood PHA 03/29/25 In Process (Accu-Chek Comfort 17:00 Insulin R (Human) PHA 03/29/25 In Process (Insulin R) 17:00 Dextrose 50% Syringe PHA 03/29/25 In Process 13:15 Mrsa Screen ROBERT 03/29/25 In Process 15:19 Echo 2d Mode Cardiac US 03/30/25 Logged DOP 13:05 Insert Midline ORDERS 03/30/25 Transmitted 08:33 Change Midline JAMILA 03/30/25 In Process Dressing Q7 Day 09:47 Zosyn Extended PHA 03/30/25 Verified Infusion 11:00 Zosyn Extended PHA 03/30/25 Verified Infusion 14:00 Vancomycin PHA 03/30/25 Verified 11:00 Basic Metabolic Panel LAB 03/31/25 Verified 06:00 Complete Blood Count LAB 03/31/25 Verified 06:00 Date of Service: Mar 30, 2025 Billing Provider: RANDY MCLAUGHLIN MD Common Visit Codes: [id number] INP/OBS CARE(HIGH) RANDY MCLAUGHLIN MD Mar 30, 2025 11:02
--- NOTE | 2025-03-30 11:06 | DVHPN2 ---
Progress Note Date Seen: Mar 30, 2025 Medical Necessity Reason Pt with a Central, PICC or Fol: No Subjective Review of Systems: NEURO:Abnormal Other Systems: Patient seen and examined by myself today in follow-up Patient examined hemodialysis, blood pressure stable Objective vital signs Vital Sign Date Time Temp Pulse Resp B/P (MAP) Pulse Ox O2 Delivery O2 Flow Rate FiO2 03/30/25 10:00 98.6 59 15 109/31 (57) 98 209.5 03/30/25 08:00 Nasal Cannula* 1 24 Total Intake and Output 03/29/25 03/29/25 03/30/25 15:00 23:00 07:00 Intake Total 130 ml 20 ml Output Total 0 ml 0 ml Balance 130 ml 20 ml medications Current Medications Medications Dose Ordered Sig/Tomasa Route Start Time Stop Time Status Last Admin Dose Admin Sodium Chloride 10 ml Q8HR IV 03/29/25 14:00 03/30/25 05:17 10 ML Ondansetron HCl 4 mg Q4HP PRN IV 03/29/25 07:45 Docusate Sodium 100 mg BID PO 03/29/25 10:00 03/29/25 21:21 100 MG Acetaminophen 650 mg Q6HP PRN PO 03/29/25 07:45 03/29/25 10:19 650 MG Nitroglycerin 0.4 mg Q5MINP PRN SL 03/29/25 07:45 Morphine Sulfate 2 mg Q30M PRN IV 03/29/25 08:00 Levetiracetam 100 ml @ 400 mls/hr BID IV 03/29/25 10:00 03/29/25 21:21 400 MLS/HR Atorvastatin Calcium 20 mg HS PO 03/29/25 22:00 03/29/25 21:21 20 MG Gabapentin 100 mg DAILY@DINNER PO 03/29/25 17:30 03/29/25 18:27 100 MG Levothyroxine Sodium 25 mcg QAM PO 03/30/25 07:00 03/30/25 06:18 25 MCG Phenytoin Sodium 200 mg DAILY@1400 PO 03/29/25 14:00 Amlodipine Besylate 10 mg DAILY PO 03/29/25 10:00 03/29/25 10:20 10 MG Aspirin 81 mg DAILY PO 03/29/25 10:00 03/29/25 10:19 81 MG Patient Own Medication 1 tab DAILY PO 03/29/25 10:00 03/29/25 10:00 1 TAB Paroxetine HCl 10 mg DAILY PO 03/29/25 10:00 03/29/25 10:20 10 MG Patient Own Medication 500 mg TID PO 03/29/25 14:00 Hydralazine HCl 100 mg BID PO 03/29/25 11:00 03/29/25 21:20 100 MG Ipratropium [place] 0.5 mg Q4HPRN PRN NEB 03/29/25 11:30 Albuterol 2.5 mg Q4HPRN PRN NEB 03/29/25 11:30 Patient Own Medication 12 unit QAM SC 03/30/25 07:00 Diagnostic Test (Pha) 1 strip ACHS 03/29/25 17:00 03/30/25 06:09 1 STRIP Insulin Human Regular ACHS SC 03/29/25 17:00 Dextrose 50 ml UD PRN IV 03/29/25 13:15 Piperacillin Sod/ Tazobactam Sod 100 ml @ 25 mls/hr Q8HR IV 03/30/25 14:00 UNV Vancomycin HCl 0 ml @ 0 mls/hr UD IV 03/30/25 11:00 UNV Examination: LUNGS:Normal, CVS:Normal, MSK:Normal laboratory and microbiology Laboratory Tests 03/30/25 05:20 Test 03/30/25 05:20 Range/Units Serum Glucose 190 #H 74-106 mg/dL Microbiology Date/Time Source Procedure Growth Status 03/29/25 02:39 Blood Blood Culture - Preliminary NO GROWTH AFTER 24 HOURS OF INCUBATION. Resulted Problem List/Assessment/Plan Problem List/Assessment/Plan End-stage renal disease on hemodialysis Acute on chronic respiratory failure Congestive heart failure exacerbation CVA Hyperkalemia Chest pain Hypertension Diabetes mellitus type 2 Anemia of chronic kidney disease Recommendations Continue with UF 2 L as tolerated Epogen 39570 subQ 3 times weekly Strict I&Os Lokelma 10 g p.o. Low K renal diet Blood pressure control Cardiology consult will continue to follow Total care time 30 minute Plan discussed with: Spouse My Orders My Orders Orders - NARCISO JONES MD Procedure Category Date Status Time Electrocardigram EKG 03/30/25 Logged 08:33 Communication Order ORDERS 03/30/25 Transmitted 09:52 Hemodialysis Orders ORDERS 03/30/25 Transmitted 09:38 NARCISO JONES MD Mar 30, 2025 11:06
[2025-03-30] MEDS: VANCOMYCIN 1GM/250ML KIT 250 ML IV ONE (12:44)
[2025-03-30] MEDS: PIPERACILLIN-TAZOB 3.375GM 100 ML IV ONE (12:50)
[2025-03-30] MEDS: PIPERACILLIN-TAZOB 3.375GM 100 ML IV SCH (14:00)
[2025-03-30] MEDS: EMPAGLIFLOZIN 10 MG TAB PO ONE (15:15)
--- NOTE | 2025-03-30 15:56 | ECG ---
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
[2025-03-30] MEDS: EPOETIN ALFA-EPBX 10,000 UNIT/1ML VIAL ONE (20:54)
[2025-03-30] MEDS: EPOETIN ALFA-EPBX 10,000 UNIT/1ML VIAL SC ONE (20:59)
[2025-03-30] MEDS: PIPERACILLIN-TAZOB 2.25GM 50 ML IV SCH (21:40)
[2025-03-30 21:59] LABS: Anion Gap 10 (5-15); Carbon Dioxide 28 mmol/L (20-31); Chloride 102 mmol/L (98-107); Potassium 4.6 mmol/L (3.5-5.1); Sodium 140 mmol/L (136-145)
[2025-03-30 22:05] LABS: BUN/Creatinine Ratio 11.3 (10.0-20.0)
[2025-03-30 22:06] LABS: Magnesium 2.0 mg/dL (1.6-2.6)
[2025-03-30 22:07] LABS: Blood Urea Nitrogen 47 mg/dL (9-23); Calcium 8.2 mg/dL (8.7-10.4); Glucose 261 mg/dL (74-106)
[2025-03-31] VITALS (31 sets, daily range): BP systolic 113–138; BP diastolic 23–42; PULSE 50–62; RESP 12–21; TEMP 97.5–99.1; O2SAT 92–100
--- NOTE | 2025-03-31 05:18 | DVH ---
CHEST RADIOGRAPH Indication: RESP DISTRESS Technique: Single frontal view of the chest was obtained COMPARISON: XY CHEST PORTABLE on DOS: 03/30/25, XY CHEST PORTABLE on DOS: 03/29/25, XY CHEST XRAY 1 VIE W on DOS: 10/01/24, XY CHEST PORTABLE on DOS: 07/08/24, XY CHEST PORTABLE on DOS: 07/06/24 FINDINGS: Lines and Tubes: None Lungs: Congestion Pleura: Small right pleural effusion.No pneumothorax. Cardiomediastinal contours: Unchanged cardiomegaly. Bones: Unremarkable IMPRESSION: No significant interval change.
[2025-03-31] MEDS: PIPERACILLIN-TAZOB 2.25GM 50 ML IV SCH (06:01)
[2025-03-31 06:38] LABS: Anion Gap 13 (5-15); Carbon Dioxide 24 mmol/L (20-31); Chloride 103 mmol/L (98-107); Potassium 4.9 mmol/L (3.5-5.1); Sodium 140 mmol/L (136-145)
[2025-03-31 06:41] LABS: Calcium 8.1 mg/dL (8.7-10.4)
[2025-03-31 06:44] LABS: BUN/Creatinine Ratio 13.8 (10.0-20.0); Magnesium 2.2 mg/dL (1.6-2.6)
[2025-03-31 06:52] LABS: Blood Urea Nitrogen 57 mg/dL (9-23); Glucose 198 mg/dL (74-106)
[2025-03-31 07:00] LABS: Hemoglobin 7.6 g/dL (13.5-17.5)
[2025-03-31 07:02] LABS: Hematocrit 23.4 % (41.0-53.0); Mean Corpuscular Hemoglobin 33.7 pg (28.0-32.0); Mean Corpuscular Volume 103.7 fL (80.0-100.0); Nucleated Red Blood Cells % 0.2 %
[2025-03-31] MEDS: EMPAGLIFLOZIN 10 MG TAB PO SCH (10:00)
--- NOTE | 2025-03-31 10:07 | DVHSR ---
APPROVED REPORT EXAM: Two-dimensional and M-mode echocardiogram with Doppler and color Doppler. Blood Pressure: 135/58 mmHg INDICATION Heart Failure RISK FACTORS Height: 6'1", Weight: 156 DIMENSIONS LVDd5.1 (3.8-5.7cm)LA (2D)4.1 (1.9-4.0cm)Aortic Root3.6 (2.0-3.7cm) LVDs3.8 (2.5-4.0cm)LA (MM) (1.9-4.0cm)Aortic Cusp Exc2.3 (1.5-2.0cm) EF (%) 50.0 (55-70%)Rt. Atrium5.0 (1.9-4.0cm)Asc. Aorta3.7 cm IVSd1.2 (0.7-1.1cm)RV (D) (1.8-2.4cm) PWd1.7 (0.7-1.1cm) Mitral Valve MitralMitral Stenosis E wave0.75m/sMV Mean GR.mmHg A wave0.87m/sMV Peak GR.mmHg E/A ratio0.92D MVAcm2 DECEL [id number] 1/2 Timems Aortic Valve Aortic ValveAortic Stenosis V10.92m/Maikol Mean GR.5mmHg V21.66m/Maikol Peak GR.11mmHg LVOT Diameter2.2 (1.8-2.4cm)Doppler AVA2.11cm2 Tricuspid Valve TR Velocity2.83m/s [id number] Conclusion MODERATELY DILATED RV AND RA MODERATE DEGREE LVH AND MODERATE DEGREE LV DIASTOLIC DYSFUNCTION LV EF IS 65% NORMAL VALVES NO EFFUSION
--- NOTE | 2025-03-31 11:09 | DVHPN2 ---
Progress Note Date Seen: Mar 31, 2025 Medical Necessity Reason Pt with a Central, PICC or Fol: No Subjective Patient reports: No new complaints Other Systems: Patient seen and examined by myself today in follow-up, at bedside Objective vital signs Vital Sign Date Time Temp Pulse Resp B/P (MAP) Pulse Ox O2 Delivery O2 Flow Rate FiO2 03/31/25 09:32 134/42 03/31/25 09:00 60 15 94 03/31/25 08:00 Nasal Cannula* 1 24 03/31/25 04:00 98.9 98.9 Total Intake and Output 03/30/25 03/30/25 03/31/25 15:00 23:00 07:00 Intake Total 400 ml 370 ml 252.5 ml Output Total 1000 ml 0 ml Balance 400 ml -630 ml 252.5 ml medications Current Medications Medications Dose Ordered Sig/Tomasa Route Start Time Stop Time Status Last Admin Dose Admin Sodium Chloride 10 ml Q8HR IV 03/29/25 14:00 03/31/25 06:01 10 ML Ondansetron HCl 4 mg Q4HP PRN IV 03/29/25 07:45 Docusate Sodium 100 mg BID PO 03/29/25 10:00 03/31/25 09:32 100 MG Acetaminophen 650 mg Q6HP PRN PO 03/29/25 07:45 03/29/25 10:19 650 MG Nitroglycerin 0.4 mg Q5MINP PRN SL 03/29/25 07:45 Morphine Sulfate 2 mg Q30M PRN IV 03/29/25 08:00 Levetiracetam 100 ml @ 400 mls/hr BID IV 03/29/25 10:00 03/31/25 09:35 400 MLS/HR Atorvastatin Calcium 20 mg HS PO 03/29/25 22:00 03/30/25 21:39 20 MG Gabapentin 100 mg DAILY@DINNER PO 03/29/25 17:30 03/30/25 17:38 100 MG Levothyroxine Sodium 25 mcg QAM PO 03/30/25 07:00 03/31/25 06:34 25 MCG Phenytoin Sodium 200 mg DAILY@1400 PO 03/29/25 14:00 03/30/25 15:31 200 MG Amlodipine Besylate 10 mg DAILY PO 03/29/25 10:00 03/29/25 10:20 10 MG Aspirin 81 mg DAILY PO 03/29/25 10:00 03/31/25 09:32 81 MG Paroxetine HCl 10 mg DAILY PO 03/29/25 10:00 03/31/25 09:32 10 MG Patient Own Medication 500 mg TID PO 03/29/25 14:00 Hydralazine HCl 100 mg BID PO 03/29/25 11:00 03/31/25 09:32 100 MG Ipratropium [place] 0.5 mg Q4HPRN PRN NEB 03/29/25 11:30 Albuterol 2.5 mg Q4HPRN PRN NEB 03/29/25 11:30 Patient Own Medication 12 unit QAM SC 03/30/25 07:00 03/31/25 08:36 12 UNIT Diagnostic Test (Pha) 1 strip ACHS 03/29/25 17:00 03/31/25 06:34 1 STRIP Insulin Human Regular ACHS SC 03/29/25 17:00 03/30/25 17:38 6 UNITS Dextrose 50 ml UD PRN IV 03/29/25 13:15 Vancomycin HCl 0 ml @ 0 mls/hr UD IV 03/30/25 11:00 Empaglifozin 25 mg DAILY PO 03/31/25 10:00 Piperacillin Sod/ Tazobactam Sod 50 ml @ 12.5 mls/hr Q8H IV 03/31/25 06:00 03/31/25 06:01 12.5 MLS/HR Examination: LUNGS:Normal, CVS:Normal, MSK:Normal laboratory and microbiology Laboratory Tests 03/31/25 05:20 Test 03/31/25 05:20 Range/Units Serum Glucose 198 H 74-106 mg/dL Microbiology Date/Time Source Procedure Growth Status 03/29/25 12:25 Nose MRSA Screen - Final Complete 03/29/25 02:39 Blood Blood Culture - Preliminary NO GROWTH AFTER 48 HOURS OF INCUBATION. Resulted Problem List/Assessment/Plan Problem List/Assessment/Plan End-stage renal disease on hemodialysis Acute on chronic respiratory failure Congestive heart failure exacerbation CVA with left hemiplegia Hyperkalemia Chest pain Hypertension Seizure disorder Diabetes mellitus type 2 Anemia of chronic kidney disease Recommendations Hemodialysis tomorrow Epogen 99002 subQ 3 times weekly Strict I&Os Lokelma 10 g p.o. Low K renal diet Blood pressure control Cardiology consult will continue to follow Total care time 25 minute Plan discussed with: Patient, Spouse NARCISO JONES MD Mar 31, 2025 11:09
[2025-03-31] MEDS: VANCOMYCIN 500mg/100mL 100 ML IV ONE (11:18)
--- NOTE | 2025-03-31 11:34 | DVHPN2 ---
Progress Note Date Seen: Mar 31, 2025 Medical Necessity Reason Pt with a Central, PICC or Fol: No Subjective Patient reports: No new complaints Review of Systems: HEENT:Normal, CVS:Normal, RESPIRATORY:Normal, GI:Normal, :Normal, MSK:Normal, NEURO:Normal Objective vital signs Vital Sign Date Time Temp Pulse Resp B/P (MAP) Pulse Ox O2 Delivery O2 Flow Rate FiO2 03/31/25 09:32 134/42 03/31/25 09:00 60 15 94 03/31/25 08:00 Nasal Cannula* 1 24 03/31/25 04:00 98.9 98.9 Total Intake and Output 03/30/25 03/30/25 03/31/25 15:00 23:00 07:00 Intake Total 400 ml 370 ml 252.5 ml Output Total 1000 ml 0 ml Balance 400 ml -630 ml 252.5 ml medications Current Medications Medications Dose Ordered Sig/Tomasa Route Start Time Stop Time Status Last Admin Dose Admin Sodium Chloride 10 ml Q8HR IV 03/29/25 14:00 03/31/25 06:01 10 ML Ondansetron HCl 4 mg Q4HP PRN IV 03/29/25 07:45 Docusate Sodium 100 mg BID PO 03/29/25 10:00 03/31/25 09:32 100 MG Acetaminophen 650 mg Q6HP PRN PO 03/29/25 07:45 03/29/25 10:19 650 MG Nitroglycerin 0.4 mg Q5MINP PRN SL 03/29/25 07:45 Morphine Sulfate 2 mg Q30M PRN IV 03/29/25 08:00 Levetiracetam 100 ml @ 400 mls/hr BID IV 03/29/25 10:00 03/31/25 09:35 400 MLS/HR Atorvastatin Calcium 20 mg HS PO 03/29/25 22:00 03/30/25 21:39 20 MG Gabapentin 100 mg DAILY@DINNER PO 03/29/25 17:30 03/30/25 17:38 100 MG Levothyroxine Sodium 25 mcg QAM PO 03/30/25 07:00 03/31/25 06:34 25 MCG Phenytoin Sodium 200 mg DAILY@1400 PO 03/29/25 14:00 03/30/25 15:31 200 MG Amlodipine Besylate 10 mg DAILY PO 03/29/25 10:00 10/6/25 10:20 10 MG Aspirin 81 mg DAILY PO 03/29/25 10:00 03/31/25 09:32 81 MG Paroxetine HCl 10 mg DAILY PO 03/29/25 10:00 03/31/25 09:32 10 MG Patient Own Medication 500 mg TID PO 03/29/25 14:00 Hydralazine HCl 100 mg BID PO 03/29/25 11:00 03/31/25 09:32 100 MG Ipratropium [place] 0.5 mg Q4HPRN PRN NEB 03/29/25 11:30 Albuterol 2.5 mg Q4HPRN PRN NEB 03/29/25 11:30 Patient Own Medication 12 unit QAM SC 03/30/25 07:00 03/31/25 08:36 12 UNIT Diagnostic Test (Pha) 1 strip ACHS 03/29/25 17:00 03/31/25 06:34 1 STRIP Insulin Human Regular ACHS SC 03/29/25 17:00 03/30/25 17:38 6 UNITS Dextrose 50 ml UD PRN IV 03/29/25 13:15 Vancomycin HCl 0 ml @ 0 mls/hr UD IV 03/30/25 11:00 Empaglifozin 25 mg DAILY PO 03/31/25 10:00 Piperacillin Sod/ Tazobactam Sod 50 ml @ 12.5 mls/hr Q8H IV 03/31/25 06:00 03/31/25 06:01 12.5 MLS/HR Examination: GENERAL:Normal, HEENT:Normal, NECK:Normal, LUNGS:Normal, CVS:Normal, ABDOMEN:Normal, MSK:Normal, SKIN:Normal, NEURO:Normal, NEURO:Abnormal (left cva), :Normal laboratory and microbiology Laboratory Tests 03/31/25 05:20 Test 03/31/25 05:20 Range/Units Serum Glucose 198 H 74-106 mg/dL Microbiology Date/Time Source Procedure Growth Status 03/29/25 12:25 Nose MRSA Screen - Final Complete 03/29/25 02:39 Blood Blood Culture - Preliminary NO GROWTH AFTER 48 HOURS OF INCUBATION. Resulted Problem List/Assessment/Plan Problem List/Assessment/Plan #1 acute on chronic diastolic heart failure: dialysis, echo #2 hyperkalemia: dialysis #3 h/o cva with left weakness #4 dm: ssi, tresiba #5 htn #6 hypothyroidism: check tsh #7 seizure disorder: cont meds, dilantin level #8 copd #9 encephalopathy- metabolic #10 likely pneumonia/aspiration with sepsis: iv zosyn, vanc #11 anemia: check stool, ppi advance care planning- full code- time spent 19 mins Plan discussed with: Patient My Orders My Orders Orders - RANDY MCLAUGHLIN MD Procedure Category Date Status Time Vancomycin Per JAMILA 03/30/25 In Process Pharmacy Protoc 14:56 Empagliflozin PHA 03/31/25 In Process (Jardiance) 10:00 Apply Z-Guard JAMILA 03/30/25 In Process 15:30 * Dietary Consult CONS 03/30/25 Transmitted 18:53 Chest Portable XY 03/31/25 Resulted 04:00 Piperacillin-Tazob PHA 03/31/25 In Process 2.25gm (Zosyn 2.25gm) 06:00 Vancomycin,Random LAB 04/01/25 Verified 04:00 Date of Service: Mar 31, 2025 Billing Provider: RANDY MCLAUGHLIN MD Common Visit Codes: [id number] INP/OBS CARE(HIGH) RANDY MCLAUGHLIN MD Mar 31, 2025 11:34
--- NOTE | 2025-03-31 11:37 | MEDREC ---
[facility] ASP Intervention Section I [facility] ASP Intervention: Renal dosing adjustment (Patient on hemodialysis. May consider changing frequency of zosyn to Q12H if/when clinically appropriate) MARISSA [facility] RESIDENT Mar 31, 2025 11:37
[2025-03-31] MEDS ORDERED: fentaNYL CITRATE 100 MCG/2 ML VL ONE (12:12)
[2025-03-31] MEDS ORDERED: MIDAZOLAM HCL 2MG/2ML 2ml VIAL (1mg/ml) ONE (12:13)
[2025-03-31] MEDS: PANTOPRAZOLE 40 MG/10 ML VIAL INJ IV ONE (12:17)
[2025-03-31] MEDS ORDERED: ONDANSETRON HCL 4 MG/2 ML VIAL ONE (12:42)
[2025-03-31] MEDS ORDERED: PROPOFOL 10 MG/ML 20 ML IV ONE (12:42)
[2025-03-31] MEDS ORDERED: KETOROLAC TROMETH 30 MG/ML 1ML VIAL ONE (13:12)
[2025-03-31] MEDS: JARDIANCE 25 MG TABLET PO SCH (13:51)
[2025-03-31 14:08] LABS: Magnesium 2.2 mg/dL (1.6-2.6)
--- NOTE | 2025-03-31 14:31 | ECG ---
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
[2025-04-01] VITALS (12 sets, daily range): BP systolic 114–168; BP diastolic 29–76; PULSE 46–64; RESP 15–20; TEMP 96.3–97.9; O2SAT 94–100
--- NOTE | 2025-04-01 05:31 | DVH ---
CHEST RADIOGRAPH Indication: resp distress Technique: Single frontal view of the chest was obtained COMPARISON: XY CHEST PORTABLE on DOS: 03/31/25, XY CHEST PORTABLE on DOS: 03/30/25, XY CHEST PORTABLE o n DOS: 03/29/25, XY CHEST XRAY 1 VIEW on DOS: 10/01/24, XY CHEST PORTABLE on DOS: 07/08/24 FINDINGS: Lines and Tubes: None Lungs: Unchanged pulmonary vascular congestion. Unchanged cardiomegaly. Pleura: No effusion.No pneumothorax. Cardiomediastinal contours: Unchanged cardiomegaly Bones: Unremarkable IMPRESSION: Unchanged pulmonary vascular congestion.
[2025-04-01 06:26] LABS: Hematocrit 23.2 % (41.0-53.0); Hemoglobin 7.8 g/dL (13.5-17.5); Mean Corpuscular Hemoglobin 32.9 pg (28.0-32.0); Mean Corpuscular Volume 97.3 fL (80.0-100.0); Nucleated Red Blood Cells % 0.2 %
[2025-04-01] MEDS: SODIUM CHL 0.9% 1000 ML BAG XX ONE (07:00)
[2025-04-01 07:20] LABS: Chloride 103 mmol/L (98-107); Potassium 5.1 mmol/L (3.5-5.1); Sodium 140 mmol/L (136-145)
[2025-04-01 07:21] LABS: Anion Gap 11 (5-15); Carbon Dioxide 26 mmol/L (20-31)
[2025-04-01 07:26] LABS: BUN/Creatinine Ratio 12.9 (10.0-20.0); Blood Urea Nitrogen 68 mg/dL (9-23); Calcium 8.2 mg/dL (8.7-10.4); Glucose 132 mg/dL (74-106); Magnesium 2.1 mg/dL (1.6-2.6)
[2025-04-01] MEDS: PANTOPRAZOLE 40 MG/10 ML VIAL INJ IV SCH (08:29)
--- NOTE | 2025-04-01 10:27 | DVHPN2 ---
Progress Note Date Seen: Apr 01, 2025 Medical Necessity Reason Pt with a Central, PICC or Fol: No Subjective Patient reports: No new complaints Other Systems: Patient seen and examined by myself today in follow-up Patient examined hemodialysis, blood pressure stable Objective vital signs Vital Sign Date Time Temp Pulse Resp B/P (MAP) Pulse Ox O2 Delivery O2 Flow Rate FiO2 04/01/25 09:50 100 Nasal Cannula* 1 24 04/01/25 09:43 97.7 50 20 149/61 (90) 97.7 Total Intake and Output 03/31/25 03/31/25 04/01/25 15:00 23:00 07:00 Intake Total 137.5 ml 300 ml 0 ml Balance 137.5 ml 300 ml 0 ml medications Current Medications Medications Dose Ordered Sig/Tomasa Route Start Time Stop Time Status Last Admin Dose Admin Sodium Chloride 10 ml Q8HR IV 03/29/25 14:00 04/01/25 07:01 10 ML Ondansetron HCl 4 mg Q4HP PRN IV 03/29/25 07:45 Docusate Sodium 100 mg BID PO 03/29/25 10:00 04/01/25 08:30 100 MG Acetaminophen 650 mg Q6HP PRN PO 03/29/25 07:45 03/29/25 10:19 650 MG Nitroglycerin 0.4 mg Q5MINP PRN SL 03/29/25 07:45 Morphine Sulfate 2 mg Q30M PRN IV 03/29/25 08:00 Levetiracetam 100 ml @ 400 mls/hr BID IV 03/29/25 10:00 04/01/25 08:29 400 MLS/HR Atorvastatin Calcium 20 mg HS PO 03/29/25 22:00 03/31/25 21:58 20 MG Gabapentin 100 mg DAILY@DINNER PO 03/29/25 17:30 03/31/25 17:58 100 MG Levothyroxine Sodium 25 mcg QAM PO 03/30/25 07:00 04/01/25 07:00 25 MCG Phenytoin Sodium 200 mg DAILY@1400 PO 03/29/25 14:00 03/31/25 14:25 200 MG Amlodipine Besylate 10 mg DAILY PO 03/29/25 10:00 03/29/25 10:20 10 MG Aspirin 81 mg DAILY PO 03/29/25 10:00 04/01/25 08:30 81 MG Paroxetine HCl 10 mg DAILY PO 03/29/25 10:00 04/01/25 08:30 10 MG Patient Own Medication 500 mg TID PO 03/29/25 14:00 Hydralazine HCl 100 mg BID PO 03/29/25 11:00 03/31/25 09:32 100 MG Ipratropium [place] 0.5 mg Q4HPRN PRN NEB 03/29/25 11:30 Albuterol 2.5 mg Q4HPRN PRN NEB 03/29/25 11:30 Patient Own Medication 12 unit QAM SC 03/30/25 07:00 04/01/25 08:38 12 UNIT Diagnostic Test (Pha) 1 strip ACHS 03/29/25 17:00 04/01/25 07:05 1 STRIP Insulin Human Regular ACHS SC 03/29/25 17:00 03/31/25 18:03 6 UNITS Dextrose 50 ml UD PRN IV 03/29/25 13:15 Vancomycin HCl 0 ml @ 0 mls/hr UD IV 03/30/25 11:00 Empaglifozin 25 mg DAILY PO 03/31/25 10:00 04/01/25 08:30 25 MG Piperacillin Sod/ Tazobactam Sod 50 ml @ 12.5 mls/hr Q8H IV 03/31/25 06:00 04/01/25 07:00 12.5 MLS/HR Pantoprazole Sodium 40 mg DAILY IV 04/01/25 10:00 04/01/25 08:29 40 MG Patient Own Medication 1 DAILY PO 03/31/25 10:00 03/31/25 13:51 1 Examination: LUNGS:Normal, CVS:Normal, MSK:Normal laboratory and microbiology Laboratory Tests 04/01/25 06:05 Test 04/01/25 06:05 Range/Units Serum Glucose 132 H 74-106 mg/dL Microbiology Date/Time Source Procedure Growth Status 03/29/25 12:25 Nose MRSA Screen - Final Complete 03/29/25 02:39 Blood Blood Culture - Preliminary NO GROWTH AFTER 72 HOURS OF INCUBATION. Resulted Problem List/Assessment/Plan Problem List/Assessment/Plan End-stage renal disease on hemodialysis Acute on chronic respiratory failure Congestive heart failure exacerbation CVA with left hemiplegia Hyperkalemia Chest pain Hypertension Seizure disorder Diabetes mellitus type 2 Anemia of chronic kidney disease Recommendations Continue with UF 2 L as tolerated Epogen 85544 subQ 3 times weekly Strict I&Os Lokelma 10 g p.o. Low K renal diet Blood pressure control Cardiology consult will continue to follow Total care time 25 minute Plan discussed with: Patient, Spouse My Orders My Orders Orders - NARCISO JONES MD Procedure Category Date Status Time Vitamin D, 25-Hydroxy LAB 03/31/25 In Process 11:09 Hemodialysis Orders ORDERS 04/01/25 Transmitted 07:00 Dialysis Nursing JAMILA 04/01/25 In Process Message 07:00 Document Fluid Input JAMILA 04/01/25 In Process And Outpu 07:00 Epoetin Julius-Epbx PHA 04/01/25 In Process (Retacrit) 21:00 Dietary Evaluation Review Comments: Nutrition Recommendation 1) Consider CCHO 60gm + renal standard diet 2) Monitor PO intake, lab values, weight trend, and I/O Expected Outcomes/Goals: Lab values to improve Fu 3-5 days NARCISO JONES MD Apr 01, 2025 10:27
--- NOTE | 2025-04-01 14:22 | DVHPN2 ---
Progress Note Date Seen: Apr 01, 2025 Medical Necessity Reason Pt with a Central, PICC or Fol: No Subjective Patient reports: No new complaints Review of Systems: HEENT:Normal, CVS:Normal, RESPIRATORY:Normal, GI:Normal, :Normal, MSK:Normal, NEURO:Normal Objective vital signs Vital Sign Date Time Temp Pulse Resp B/P (MAP) Pulse Ox O2 Delivery O2 Flow Rate FiO2 04/01/25 13:00 97.6 49 20 114/55 (74) 94 97.6 04/01/25 11:43 1.0 04/01/25 09:50 Nasal Cannula* 24 Total Intake and Output 03/31/25 03/31/25 04/01/25 15:00 23:00 07:00 Intake Total 137.5 ml 300 ml 0 ml Balance 137.5 ml 300 ml 0 ml medications Current Medications Medications Dose Ordered Sig/Tomasa Route Start Time Stop Time Status Last Admin Dose Admin Sodium Chloride 10 ml Q8HR IV 03/29/25 14:00 04/01/25 07:01 10 ML Ondansetron HCl 4 mg Q4HP PRN IV 03/29/25 07:45 Docusate Sodium 100 mg BID PO 03/29/25 10:00 04/01/25 08:30 100 MG Acetaminophen 650 mg Q6HP PRN PO 03/29/25 07:45 03/29/25 10:19 650 MG Nitroglycerin 0.4 mg Q5MINP PRN SL 03/29/25 07:45 Morphine Sulfate 2 mg Q30M PRN IV 03/29/25 08:00 Levetiracetam 100 ml @ 400 mls/hr BID IV 03/29/25 10:00 04/01/25 08:29 400 MLS/HR Atorvastatin Calcium 20 mg HS PO 03/29/25 22:00 03/31/25 21:58 20 MG Gabapentin 100 mg DAILY@DINNER PO 03/29/25 17:30 03/31/25 17:58 100 MG Levothyroxine Sodium 25 mcg QAM PO 03/30/25 07:00 04/01/25 07:00 25 MCG Phenytoin Sodium 200 mg DAILY@1400 PO 03/29/25 14:00 03/31/25 14:25 200 MG Amlodipine Besylate 10 mg DAILY PO 03/29/25 10:00 03/29/25 10:20 10 MG Aspirin 81 mg DAILY PO 03/29/25 10:00 04/01/25 08:30 81 MG Paroxetine HCl 10 mg DAILY PO 03/29/25 10:00 04/01/25 08:30 10 MG Patient Own Medication 500 mg TID PO 03/29/25 14:00 Hydralazine HCl 100 mg BID PO 03/29/25 11:00 03/31/25 09:32 100 MG Ipratropium [place] 0.5 mg Q4HPRN PRN NEB 03/29/25 11:30 Albuterol 2.5 mg Q4HPRN PRN NEB 03/29/25 11:30 Patient Own Medication 12 unit QAM SC 03/30/25 07:00 04/01/25 08:38 12 UNIT Diagnostic Test (Pha) 1 strip ACHS 03/29/25 17:00 04/01/25 11:30 1 STRIP Insulin Human Regular ACHS SC 03/29/25 17:00 03/31/25 18:03 6 UNITS Dextrose 50 ml UD PRN IV 03/29/25 13:15 Vancomycin HCl 0 ml @ 0 mls/hr UD IV 03/30/25 11:00 Empaglifozin 25 mg DAILY PO 03/31/25 10:00 04/01/25 08:30 25 MG Piperacillin Sod/ Tazobactam Sod 50 ml @ 12.5 mls/hr Q8H IV 03/31/25 06:00 04/01/25 07:00 12.5 MLS/HR Pantoprazole Sodium 40 mg DAILY IV 04/01/25 10:00 04/01/25 08:29 40 MG Patient Own Medication 1 DAILY PO 03/31/25 10:00 03/31/25 13:51 1 Examination: GENERAL:Normal, HEENT:Normal, NECK:Normal, LUNGS:Normal, CVS:Normal, ABDOMEN:Normal, MSK:Normal, SKIN:Normal, NEURO:Normal, :Normal laboratory and microbiology Laboratory Tests 04/01/25 06:05 Test 04/01/25 06:05 Range/Units Serum Glucose 132 H 74-106 mg/dL Microbiology Date/Time Source Procedure Growth Status 03/29/25 12:25 Nose MRSA Screen - Final Complete 03/29/25 02:39 Blood Blood Culture - Preliminary NO GROWTH AFTER 72 HOURS OF INCUBATION. Resulted Problem List/Assessment/Plan Problem List/Assessment/Plan #1 acute on chronic diastolic heart failure: dialysis, echo #2 hyperkalemia: dialysis #3 h/o cva with left weakness #4 dm: ssi, tresiba #5 htn #6 hypothyroidism: check tsh #7 seizure disorder: cont meds, dilantin level #8 copd #9 encephalopathy- metabolic #10 right pneumonia/aspiration with sepsis: iv zosyn, vanc #11 anemia: check stool, ppi advance care planning- full code- time spent 19 mins Plan discussed with: Patient, Spouse My Orders My Orders Orders - RANDY MCLAUGHLIN MD Procedure Category Date Status Time Chest Portable XY 04/01/25 Resulted 04:00 Dietary Evaluation Review Comments: Nutrition Recommendation 1) Consider CCHO 60gm + renal standard diet 2) Monitor PO intake, lab values, weight trend, and I/O Expected Outcomes/Goals: Lab values to improve Fu 3-5 days Date of Service: Apr 01, 2025 Billing Provider: RANDY MCLAUGHLIN MD Common Visit Codes: [id number] INP/OBS CARE(HIGH) RANDY MCLAUGHLIN MD Apr 01, 2025 14:21
[2025-04-01] MEDS: EPOETIN ALFA-EPBX 10,000 UNIT/1ML VIAL SC ONE (21:48)
[2025-04-01] MEDS: VANCOMYCIN 1GM/250ML KIT 250 ML IV ONE (21:48)
[2025-04-01] MEDS: levETIRAcetam 500 MG TAB PO SCH (22:35)
[2025-04-02] VITALS (10 sets, daily range): BP systolic 109–166; BP diastolic 24–71; PULSE 51–56; RESP 14–18; TEMP 96.3–98.1; O2SAT 95–100
[2025-04-02] MEDS: LEVOTHYROXINE SODIUM 25 MCG TAB PO SCH (05:43)
[2025-04-02] MEDS: PANTOPRAZOLE 40 MG TAB PO SCH (10:54)
--- NOTE | 2025-04-02 11:10 | DVHPN2 ---
Subjective Patient is aphasic. Patient's bedside with no reported symptoms. Reviewed: Care Plan, H&P, Labs, Medications Changes from previous H/P or p: No Changes General: Per HPI Eyes: No Pain, No Vision change, No Conjunctivae inflammation, No Eyelid inflammation, No Other, No Redness ENT: No Ear pain, No Ear discharge, No Nose pain, No Nose discharge, No Nose congestion, No Mouth pain, No Mouth swelling, No Throat pain, No Throat swelling, No Other Cardiovascular: No Chest Pain, No Palpitations, No Orthopnea, No Paroxysmal Noc. Dyspnea, No Edema, No Lt Headedness, No Other Respiratory: No Cough, No Dry, No Shortness of breath, No SOB with excertion, No Wheezing, No Hemoptysis, No Pleuritic Pain, No Sputum, No Other Gastrointestinal: No Nausea, No Vomiting, No Abdominal Pain, No Diarrhea, No Constipation, No Melena, No Hematochezia, No Other Genitourinary: No Dysuria, No Frequency, No Incontinence, No Hematuria, No Retention, No Other Musculoskeletal: No other, No neck pain, No shoulder pain, No arm pain, No back pain, No hand pain, No leg pain, No foot pain Skin: No Rash, No Lesions, No Jaundice, No Bruising, No Other Objective Vitals Vital Signs Date Time Temp Pulse Resp B/P (MAP) Pulse Ox O2 Delivery O2 Flow Rate FiO2 04/02/25 10:00 127/24 04/02/25 09:00 97.8 54 18 99 97.8 04/02/25 08:09 Nasal Cannula* 1 24 Intake/Output Intake and Output 04/02/25 07:00 Intake Total 1400 ml Balance 1400 ml Intake Oral 1200 ml IV Total 200 ml # Voids 1 General Appearance: Alert, Oriented X3, Cooperative, No acute distress HEENT: Atraumatic, PERRLA Lungs: Clear to auscultation, Normal air movement, Other (Breath sounds at bases) Cardiovascular: Normal S1, Normal S2 Abdomen: Normal bowel sounds, Soft, No tenderness, No hepatospenomegaly Musculoskeletal: Normal sensory function, Normal motor function Neuro: Normal gait, Normal speech Skin: Dry, Intact Psych/Mental Status: Mental status NL, Mood NL Medications Current Medications Medications Dose Ordered Sig/Tomasa Route Start Time Stop Time Status Last Admin Dose Admin Sodium Chloride 10 ml Q8HR IV 03/29/25 14:00 04/02/25 05:46 10 ML Ondansetron HCl 4 mg Q4HP PRN IV 03/29/25 07:45 Docusate Sodium 100 mg BID PO 03/29/25 10:00 04/02/25 10:50 100 MG Acetaminophen 650 mg Q6HP PRN PO 03/29/25 07:45 03/29/25 10:19 650 MG Nitroglycerin 0.4 mg Q5MINP PRN SL 03/29/25 07:45 Morphine Sulfate 2 mg Q30M PRN IV 03/29/25 08:00 Atorvastatin Calcium 20 mg HS PO 03/29/25 22:00 04/01/25 22:35 20 MG Gabapentin 100 mg DAILY@DINNER PO 03/29/25 17:30 04/01/25 18:22 100 MG Phenytoin Sodium 200 mg DAILY@1400 PO 03/29/25 14:00 04/01/25 18:24 200 MG Amlodipine Besylate 10 mg DAILY PO 03/29/25 10:00 03/29/25 10:20 10 MG Aspirin 81 mg DAILY PO 03/29/25 10:00 04/02/25 10:54 81 MG Paroxetine HCl 10 mg DAILY PO 03/29/25 10:00 04/02/25 10:52 10 MG Patient Own Medication 500 mg TID PO 03/29/25 14:00 Hydralazine HCl 100 mg BID PO 03/29/25 11:00 04/01/25 22:34 100 MG Ipratropium [place] 0.5 mg Q4HPRN PRN NEB 03/29/25 11:30 Albuterol 2.5 mg Q4HPRN PRN NEB 03/29/25 11:30 Patient Own Medication 12 unit QAM SC 03/30/25 07:00 04/02/25 10:42 12 UNIT Diagnostic Test (Pha) 1 strip ACHS 03/29/25 17:00 04/02/25 06:30 1 STRIP Insulin Human Regular ACHS SC 03/29/25 17:00 03/31/25 18:03 6 UNITS Dextrose 50 ml UD PRN IV 03/29/25 13:15 Vancomycin HCl 0 ml @ 0 mls/hr UD IV 03/30/25 11:00 Empaglifozin 25 mg DAILY PO 03/31/25 10:00 04/02/25 10:50 25 MG Piperacillin Sod/ Tazobactam Sod 50 ml @ 12.5 mls/hr Q8H IV 03/31/25 06:00 04/02/25 05:44 12.5 MLS/HR Patient Own Medication 1 DAILY PO 03/31/25 10:00 03/31/25 13:51 1 Pantoprazole Sodium 40 mg DAILY@0800 PO 04/02/25 08:00 04/02/25 10:54 40 MG Levetiracetam 250 mg BID PO 04/01/25 22:00 04/02/25 10:53 250 MG Levothyroxine Sodium 25 mcg DAILY@0600 PO 04/02/25 06:00 04/02/25 05:43 25 MCG Laboratory Results Laboratory Tests 04/01/25 06:05 Microbiology Microbiology Date/Time Source Procedure Growth Status 03/31/25 11:17 Arm Gram Stain - Final Resulted 03/31/25 11:17 Arm Wound Culture - Preliminary Resulted 03/29/25 02:39 Blood Blood Culture - Preliminary NO GROWTH AFTER 72 HOURS OF INCUBATION. Resulted Labs and/or images reviewed: Labs reviewed by me, Image(s) reviewed by me Assessment/Plan Assessment/Plan Impression: -acute on chronic diastolic heart failure -ESRD with hemodialysis -hyperkalemia, resolved -history of CVA with left-sided deficits -diabetes mellitus -accelerated hypertension -hypothyroidism -seizure disorder -COPD -metabolic encephalopathy -acute hypoxic respiratory failure -community-acquired pneumonia, probable aspiration to right lower lobe -anemia of chronic disease Plan: -O2 supplementation to keep saturation greater than 92% -continue IV antibiotic therapy with Zosyn and vancomycin -nephrology consultation for HD -continue regular insulin sliding scale during the day, Tresiba daily -continue antihypertensives -continue antiepileptics -repeat chest x-ray today -bronchodilators -repeat labs in a.m. Total time spent with patient discussing and formulating plan of care: 35 minutes. This medical document was created using an electronic medical record system with [employer] system. Although this document has been carefully reviewed, there may still be some phonetic and typographical errors. These areas are purely typographical due to imperfections of the software programs, and do not reflect any compromise in the patient's medical care. Plan discussed with: Patient, Other (RN) My Orders Orders - MEGGAN IVEY NP Procedure Category Date Status Time Chest Xray 1 View XY 04/02/25 Logged 10:54 Basic Metabolic Panel LAB 04/03/25 Verified 05:00 Basic Metabolic Panel LAB 04/04/25 Verified 05:00 Hemoglobin & LAB 04/03/25 Verified Hematocrit 04:00 Date of Service: Apr 02, 2025 Billing Provider: MEGGAN IVEY NP Common Visit Codes: [id number] INP/OBS CARE(HIGH) MEGGAN IVEY NP Apr 02, 2025 11:10
--- NOTE | 2025-04-02 11:22 | DVHPN2 ---
Progress Note Date Seen: Apr 02, 2025 Medical Necessity Reason Pt with a Central, PICC or Fol: No Subjective Patient reports: No new complaints Other Systems: Patient seen and examined by myself today in follow-up Objective vital signs Vital Sign Date Time Temp Pulse Resp B/P (MAP) Pulse Ox O2 Delivery O2 Flow Rate FiO2 04/02/25 10:00 127/24 04/02/25 09:00 97.8 54 18 99 97.8 04/02/25 08:09 Nasal Cannula* 1 24 Total Intake and Output 04/01/25 04/01/25 04/02/25 15:00 23:00 07:00 Intake Total 150 ml 700 ml 550 ml Balance 150 ml 700 ml 550 ml medications Current Medications Medications Dose Ordered Sig/Tomasa Route Start Time Stop Time Status Last Admin Dose Admin Sodium Chloride 10 ml Q8HR IV 03/29/25 14:00 04/02/25 05:46 10 ML Ondansetron HCl 4 mg Q4HP PRN IV 03/29/25 07:45 Docusate Sodium 100 mg BID PO 03/29/25 10:00 04/02/25 10:50 100 MG Acetaminophen 650 mg Q6HP PRN PO 03/29/25 07:45 03/29/25 10:19 650 MG Nitroglycerin 0.4 mg Q5MINP PRN SL 03/29/25 07:45 Morphine Sulfate 2 mg Q30M PRN IV 03/29/25 08:00 Atorvastatin Calcium 20 mg HS PO 03/29/25 22:00 04/01/25 22:35 20 MG Gabapentin 100 mg DAILY@DINNER PO 03/29/25 17:30 04/01/25 18:22 100 MG Phenytoin Sodium 200 mg DAILY@1400 PO 03/29/25 14:00 04/01/25 18:24 200 MG Amlodipine Besylate 10 mg DAILY PO 03/29/25 10:00 03/29/25 10:20 10 MG Aspirin 81 mg DAILY PO 03/29/25 10:00 04/02/25 10:54 81 MG Paroxetine HCl 10 mg DAILY PO 03/29/25 10:00 04/02/25 10:52 10 MG Patient Own Medication 500 mg TID PO 03/29/25 14:00 Hydralazine HCl 100 mg BID PO 03/29/25 11:00 04/01/25 22:34 100 MG Ipratropium [place] 0.5 mg Q4HPRN PRN NEB 03/29/25 11:30 Albuterol 2.5 mg Q4HPRN PRN NEB 03/29/25 11:30 Patient Own Medication 12 unit QAM SC 03/30/25 07:00 04/02/25 10:42 12 UNIT Diagnostic Test (Pha) 1 strip ACHS 03/29/25 17:00 04/02/25 06:30 1 STRIP Insulin Human Regular ACHS SC 03/29/25 17:00 03/31/25 18:03 6 UNITS Dextrose 50 ml UD PRN IV 03/29/25 13:15 Vancomycin HCl 0 ml @ 0 mls/hr UD IV 03/30/25 11:00 Empaglifozin 25 mg DAILY PO 03/31/25 10:00 04/02/25 10:50 25 MG Piperacillin Sod/ Tazobactam Sod 50 ml @ 12.5 mls/hr Q8H IV 03/31/25 06:00 04/02/25 05:44 12.5 MLS/HR Patient Own Medication 1 DAILY PO 03/31/25 10:00 03/31/25 13:51 1 Pantoprazole Sodium 40 mg DAILY@0800 PO 04/02/25 08:00 04/02/25 10:54 40 MG Levetiracetam 250 mg BID PO 04/01/25 22:00 04/02/25 10:53 250 MG Levothyroxine Sodium 25 mcg DAILY@0600 PO 04/02/25 06:00 04/02/25 05:43 25 MCG laboratory and microbiology Laboratory Tests 04/01/25 06:05 Test 04/01/25 06:05 Range/Units Serum Glucose 132 H 74-106 mg/dL Microbiology Date/Time Source Procedure Growth Status 03/31/25 11:17 Arm Gram Stain - Final Resulted 03/31/25 11:17 Arm Wound Culture - Preliminary Resulted 03/29/25 02:39 Blood Blood Culture - Preliminary NO GROWTH AFTER 72 HOURS OF INCUBATION. Resulted Problem List/Assessment/Plan Problem List/Assessment/Plan End-stage renal disease on hemodialysis Acute on chronic respiratory failure Congestive heart failure exacerbation CVA with left hemiplegia Hyperkalemia Chest pain Hypertension Seizure disorder Diabetes mellitus type 2 Anemia of chronic kidney disease Recommendations Hemodialysis tomorrow Epogen 13607 subQ 3 times weekly Strict I&Os Lokelma 10 g p.o. Low K renal diet Blood pressure control Cardiology consult will continue to follow Total care time 25 minute Plan discussed with: Patient, Spouse Dietary Evaluation Review Comments: Nutrition Recommendation 1) Consider CCHO 60gm + renal standard diet 2) Monitor PO intake, lab values, weight trend, and I/O Expected Outcomes/Goals: Lab values to improve Fu 3-5 days NARCISO JONES MD Apr 02, 2025 11:22
--- NOTE | 2025-04-02 12:20 | DVH ---
EXAM: XY CHEST XRAY 1 VIEW Indication: Pain; pna Technique: Single frontal view of the chest was obtained Comparison: XY CHEST PORTABLE on DOS: 04/01/25, XY CHEST PORTABLE on DOS: 03/31/25, XY CHEST PORTABLE o n DOS: 03/30/25, XY CHEST PORTABLE on DOS: 03/29/25, XY CHEST XRAY 1 VIEW on DOS: 10/01/24, XY CHEST POR TABLE on DOS: 04/01/25 FINDINGS: Lines and Tubes: None Lungs: Unchanged pulmonary vascular congestion. Unchanged cardiomegaly. Small right pleural effusion. Trace left pleural effusion. Cardiomediastinal contours: Unchanged cardiomegaly Bones: Unremarkable IMPRESSION: Small right pleural effusion. Trace left pleural effusion. Cardiomegaly. Pulmonary edema.
[2025-04-03] VITALS (9 sets, daily range): BP systolic 138–173; BP diastolic 50–71; PULSE 17–63; RESP 15–18; TEMP 97.1–97.9; O2SAT 93–100
--- NOTE | 2025-04-03 06:10 | ECG ---
[facility] Test Date: 2025-04-03 Test Time: 06:08:29 Pat Name: EMILY MONIQUE Department: Room: 0289T B Gender: M [employer]: am : 1965 Requested By: BABS HOLLINS Order Number: [id number] Reading MD: Deric Snyder Measurements Intervals [place] Rate: 48 P: 50 AL: 177 QRS: -34 QRSD: 112 T: 72 QT: 513 QTc: 459 Interpretive Statements Sinus bradycardia Borderline IVCD with LAD Nonspecific T abnrm, anterolateral leads Baseline wander in lead(s) II,III,aVL,aVF,V2,V3,V6 Electronically Signed On 04-03-2025 20:01:07 PDT by Deric Snyder Please click the below link to view image of tracing.
[2025-04-03] MEDS: DEXTROSE 10% 1,000 ML IV ONE (06:15)
[2025-04-03] MEDS ORDERED: DEXTROSE (50%) 50ML SYRG IV PRN (06:15)
[2025-04-03] MEDS ORDERED: DEXTROSE 10% 1,000 ML IV ONE (06:17)
[2025-04-03] MEDS ORDERED: SODIUM CHL 0.9% 1000 ML BAG XX ONE (07:00)
[2025-04-03 07:08] LABS: Hematocrit 29.4 % (41.0-53.0); Hemoglobin 9.8 g/dL (13.5-17.5); Mean Corpuscular Hemoglobin 33.2 pg (28.0-32.0); Mean Corpuscular Volume 99.9 fL (80.0-100.0); Nucleated Red Blood Cells % 0.2 %
[2025-04-03 07:27] LABS: Chloride 98 mmol/L (98-107); Potassium 4.6 mmol/L (3.5-5.1); Sodium 138 mmol/L (136-145)
[2025-04-03 07:28] LABS: Anion Gap 14 (5-15); Carbon Dioxide 26 mmol/L (20-31)
[2025-04-03 07:33] LABS: BUN/Creatinine Ratio 10.8 (10.0-20.0); Calcium 8.1 mg/dL (8.7-10.4)
[2025-04-03 07:35] LABS: Blood Urea Nitrogen 50 mg/dL (9-23)
[2025-04-03 07:37] LABS: Glucose 33 mg/dL (74-106)
[2025-04-03] MEDS: ACCU-CHEK COMFORT CURVE STRIP VI SCH (08:00)
[2025-04-03] MEDS: InsuLIN REG 1unit/0.01ml Soln (100units/ml) SC SCH (08:00)
--- NOTE | 2025-04-03 11:02 | DVHPN2 ---
Progress Note Date Seen: Apr 03, 2025 Medical Necessity Reason Pt with a Central, PICC or Fol: No Subjective Patient reports: No new complaints Other Systems: Patient seen and examined by myself today in follow-up, Patient examined on hemodialysis, blood pressure stable Objective vital signs Vital Sign Date Time Temp Pulse Resp B/P (MAP) Pulse Ox O2 Delivery O2 Flow Rate FiO2 04/03/25 09:00 97.1 17 155/63 (93) 99 97.1 04/03/25 05:23 Nasal Cannula* 1 24 04/03/25 01:00 15 Total Intake and Output 04/02/25 04/02/25 04/03/25 15:00 23:00 07:00 Intake Total 400 ml 330 ml Balance 400 ml 330 ml medications Current Medications Medications Dose Ordered Sig/Tomasa Route Start Time Stop Time Status Last Admin Dose Admin Sodium Chloride 10 ml Q8HR IV 03/29/25 14:00 04/03/25 05:26 10 ML Ondansetron HCl 4 mg Q4HP PRN IV 03/29/25 07:45 Docusate Sodium 100 mg BID PO 03/29/25 10:00 04/02/25 21:54 100 MG Acetaminophen 650 mg Q6HP PRN PO 03/29/25 07:45 03/29/25 10:19 650 MG Nitroglycerin 0.4 mg Q5MINP PRN SL 03/29/25 07:45 Morphine Sulfate 2 mg Q30M PRN IV 03/29/25 08:00 Atorvastatin Calcium 20 mg HS PO 03/29/25 22:00 04/02/25 21:54 20 MG Gabapentin 100 mg DAILY@DINNER PO 03/29/25 17:30 04/02/25 17:37 100 MG Phenytoin Sodium 200 mg DAILY@1400 PO 03/29/25 14:00 04/02/25 15:35 200 MG Amlodipine Besylate 10 mg DAILY PO 03/29/25 10:00 03/29/25 10:20 10 MG Aspirin 81 mg DAILY PO 03/29/25 10:00 04/02/25 10:54 81 MG Paroxetine HCl 10 mg DAILY PO 03/29/25 10:00 04/02/25 10:52 10 MG Patient Own Medication 500 mg TID PO 03/29/25 14:00 Hydralazine HCl 100 mg BID PO 03/29/25 11:00 04/02/25 22:17 100 MG Ipratropium [place] 0.5 mg Q4HPRN PRN NEB 03/29/25 11:30 Albuterol 2.5 mg Q4HPRN PRN NEB 03/29/25 11:30 Patient Own Medication 12 unit QAM SC 03/30/25 07:00 04/03/25 07:00 12 UNIT Vancomycin HCl 0 ml @ 0 mls/hr UD IV 03/30/25 11:00 Empaglifozin 25 mg DAILY PO 03/31/25 10:00 04/02/25 10:50 25 MG Piperacillin Sod/ Tazobactam Sod 50 ml @ 12.5 mls/hr Q8H IV 03/31/25 06:00 04/03/25 05:26 12.5 MLS/HR Pantoprazole Sodium 40 mg DAILY@0800 PO 04/02/25 08:00 04/02/25 10:54 40 MG Levetiracetam 250 mg BID PO 04/01/25 22:00 04/02/25 21:54 250 MG Levothyroxine Sodium 25 mcg DAILY@0600 PO 04/02/25 06:00 04/03/25 05:25 25 MCG Diagnostic Test (Pha) 1 strip IQ4HR 04/03/25 08:00 04/03/25 08:00 1 STRIP Insulin Human Regular IQ4HR SC 04/03/25 08:00 Dextrose 50 ml UD PRN IV 04/03/25 06:15 Examination: LUNGS:Normal, CVS:Normal, MSK:Normal laboratory and microbiology Laboratory Tests 04/03/25 05:42 Test 04/03/25 05:42 Range/Units Serum Glucose 33 *L 74-106 mg/dL Microbiology Date/Time Source Procedure Growth Status 03/31/25 11:17 Arm Gram Stain - Final Resulted 03/31/25 11:17 Arm Wound Culture - Preliminary Resulted 03/29/25 02:39 Blood Blood Culture - Final NO GROWTH AFTER 5 DAYS OF INCUBATION. Complete Problem List/Assessment/Plan Problem List/Assessment/Plan End-stage renal disease on hemodialysis Acute on chronic respiratory failure Congestive heart failure exacerbation CVA with left hemiplegia Hyperkalemia Chest pain Hypertension Seizure disorder Diabetes mellitus type 2 Anemia of chronic kidney disease Recommendations Continue with UF 2 L as tolerated Epogen 15344 subQ 3 times weekly Strict I&Os Lokelma 10 g p.o. Low K renal diet Blood pressure control Cardiology consult will continue to follow Total care time 25 minute Plan discussed with: Patient, Spouse My Orders My Orders Orders - NARCISO JONES MD Procedure Category Date Status Time Hemodialysis Orders ORDERS 04/03/25 Transmitted 07:00 Dialysis Nursing JAMILA 04/03/25 In Process Message 07:00 Document Fluid Input JAMILA 04/03/25 In Process And Outpu 07:00 Epoetin Julius-Epbx PHA 04/03/25 In Process (Retacrit) 21:00 Dietary Evaluation Review Comments: Nutrition Recommendation 1) Consider CCHO 60gm + renal standard diet 2) Monitor PO intake, lab values, weight trend, and I/O Expected Outcomes/Goals: Lab values to improve Fu 3-5 days NARCISO JONES MD Apr 03, 2025 11:02
--- NOTE | 2025-04-03 17:31 | DVHPN2 ---
Subjective Better/per at bedside Reviewed: Care Plan, H&P, Labs, Medications, Previous Orders, Radiology Changes from previous H/P or p: No Changes General: Per HPI Objective Vitals Vital Signs Date Time Temp Pulse Resp B/P (MAP) Pulse Ox O2 Delivery O2 Flow Rate FiO2 04/03/25 17:00 97.8 58 18 153/67 (95) 93 97.8 04/03/25 05:23 Nasal Cannula* 1 24 Intake/Output Intake and Output 04/03/25 07:00 Intake Total 730 ml Balance 730 ml Intake Oral 680 ml IV Total 50 ml # Voids 2 # Bowel Movements 1 General Appearance: Alert, Oriented X3, Cooperative, No acute distress HEENT: Atraumatic Lungs: Clear to auscultation, Normal air movement, Other (Breath sounds at bases) Cardiovascular: Regular rate Abdomen: Normal bowel sounds, Soft, No tenderness, No hepatospenomegaly Medications Current Medications Medications Dose Ordered Sig/Tomasa Route Start Time Stop Time Status Last Admin Dose Admin Sodium Chloride 10 ml Q8HR IV 03/29/25 14:00 04/03/25 14:48 10 ML Ondansetron HCl 4 mg Q4HP PRN IV 03/29/25 07:45 Docusate Sodium 100 mg BID PO 03/29/25 10:00 04/03/25 14:42 100 MG Acetaminophen 650 mg Q6HP PRN PO 03/29/25 07:45 03/29/25 10:19 650 MG Nitroglycerin 0.4 mg Q5MINP PRN SL 03/29/25 07:45 Morphine Sulfate 2 mg Q30M PRN IV 03/29/25 08:00 Atorvastatin Calcium 20 mg HS PO 03/29/25 22:00 04/02/25 21:54 20 MG Gabapentin 100 mg DAILY@DINNER PO 03/29/25 17:30 04/03/25 17:00 100 MG Phenytoin Sodium 200 mg DAILY@1400 PO 03/29/25 14:00 04/03/25 14:56 200 MG Amlodipine Besylate 10 mg DAILY PO 03/29/25 10:00 04/03/25 14:46 10 MG Aspirin 81 mg DAILY PO 03/29/25 10:00 04/03/25 14:45 81 MG Paroxetine HCl 10 mg DAILY PO 03/29/25 10:00 04/03/25 14:46 10 MG Patient Own Medication 500 mg TID PO 03/29/25 14:00 Hydralazine HCl 100 mg BID PO 03/29/25 11:00 04/03/25 14:45 100 MG Ipratropium [place] 0.5 mg Q4HPRN PRN NEB 03/29/25 11:30 Albuterol 2.5 mg Q4HPRN PRN NEB 03/29/25 11:30 Patient Own Medication 12 unit QAM SC 03/30/25 07:00 04/03/25 07:00 12 UNIT Vancomycin HCl 0 ml @ 0 mls/hr UD IV 03/30/25 11:00 Empaglifozin 25 mg DAILY PO 03/31/25 10:00 04/03/25 10:00 25 MG Piperacillin Sod/ Tazobactam Sod 50 ml @ 12.5 mls/hr Q8H IV 03/31/25 06:00 04/03/25 14:48 12.5 MLS/HR Pantoprazole Sodium 40 mg DAILY@0800 PO 04/02/25 08:00 04/03/25 14:43 40 MG Levetiracetam 250 mg BID PO 04/01/25 22:00 04/03/25 14:47 250 MG Levothyroxine Sodium 25 mcg DAILY@0600 PO 04/02/25 06:00 04/03/25 05:25 25 MCG Diagnostic Test (Pha) 1 strip IQ4HR 04/03/25 08:00 04/03/25 16:00 1 STRIP Insulin Human Regular IQ4HR SC 04/03/25 08:00 Dextrose 50 ml UD PRN IV 04/03/25 06:15 Laboratory Results Laboratory Tests 04/03/25 05:42 Chemistry Test 04/03/25 05:42 Calcium Level 8.1 mg/dL (8.7-10.4) L Microbiology Microbiology Date/Time Source Procedure Growth Status 03/31/25 11:17 Arm Gram Stain - Final Complete 03/31/25 11:17 Arm Wound Culture - Final Complete 03/29/25 02:39 Blood Blood Culture - Final NO GROWTH AFTER 5 DAYS OF INCUBATION. Complete Assessment/Plan Assessment/Plan Acute on chronic diastolic heart failure Hyperkalemia End-stage renal disease on hemodialysis Seizures COPD and possible pneumonia History of CVA with left-sided deficits Diabetes Hypertension Hypothyroidism Small bilateral pleural effusion Continue current plan of care. Possible home tomorrow if stable Plan discussed with: Patient, Spouse Date of Service: Apr 03, 2025 Billing Provider: LEV DAVISON MD Common Visit Codes: [id number] INP/OBS CARE(HIGH) LEV DAVISON MD Apr 03, 2025 17:31
[2025-04-03] MEDS: EPOETIN ALFA-EPBX 10,000 UNIT/1ML VIAL SC ONE (21:23)
[2025-04-04] VITALS (10 sets, daily range): BP systolic 104–186; BP diastolic 25–71; PULSE 47–53; RESP 16–19; TEMP 97.3–98.9; O2SAT 94–100
[2025-04-04 07:29] LABS: Chloride 99 mmol/L (98-107); Potassium 4.4 mmol/L (3.5-5.1); Sodium 138 mmol/L (136-145)
[2025-04-04 07:30] LABS: Anion Gap 11 (5-15); Carbon Dioxide 28 mmol/L (20-31)
[2025-04-04 07:31] LABS: Calcium 7.9 mg/dL (8.7-10.4)
[2025-04-04 07:35] LABS: BUN/Creatinine Ratio 12.4 (10.0-20.0)
[2025-04-04 07:36] LABS: Blood Urea Nitrogen 48 mg/dL (9-23); Glucose 249 mg/dL (74-106)
--- NOTE | 2025-04-04 10:23 | MEDREC ---
[facility] Intervention Section I [facility] Intervention: Deescalate AB based on CS (PLEASE CONSIDER DE-ESCALATION BASED ONCULTURE RESULTSIF CLINICALLY RELEVANT) JOSLYN [place] PHARMACIST Apr 04, 2025 10:22
--- NOTE | 2025-04-04 11:01 | DVHPN2 ---
Progress Note Date Seen: Apr 04, 2025 Medical Necessity Reason Pt with a Central, PICC or Fol: No Subjective Patient reports: No new complaints Other Systems: Patient seen and examined by myself today in follow-up Objective vital signs Vital Sign Date Time Temp Pulse Resp B/P (MAP) Pulse Ox O2 Delivery O2 Flow Rate FiO2 04/04/25 09:58 146/78 04/04/25 08:34 98.9 50 18 94 98.9 04/04/25 07:50 Room Air* 1 N/A Nasal Cannula* Total Intake and Output 04/03/25 04/03/25 04/04/25 15:00 23:00 07:00 Intake Total 50 ml 900 ml 284 ml Output Total 0 ml Balance 50 ml 900 ml 284 ml medications Current Medications Medications Dose Ordered Sig/Tomasa Route Start Time Stop Time Status Last Admin Dose Admin Sodium Chloride 10 ml Q8HR IV 03/29/25 14:00 04/04/25 05:13 10 ML Ondansetron HCl 4 mg Q4HP PRN IV 03/29/25 07:45 Docusate Sodium 100 mg BID PO 03/29/25 10:00 04/04/25 09:58 100 MG Acetaminophen 650 mg Q6HP PRN PO 03/29/25 07:45 03/29/25 10:19 650 MG Nitroglycerin 0.4 mg Q5MINP PRN SL 03/29/25 07:45 Morphine Sulfate 2 mg Q30M PRN IV 03/29/25 08:00 Atorvastatin Calcium 20 mg HS PO 03/29/25 22:00 04/03/25 21:24 20 MG Gabapentin 100 mg DAILY@DINNER PO 03/29/25 17:30 04/03/25 17:00 100 MG Phenytoin Sodium 200 mg DAILY@1400 PO 03/29/25 14:00 04/03/25 14:56 200 MG Amlodipine Besylate 10 mg DAILY PO 03/29/25 10:00 04/04/25 09:57 10 MG Aspirin 81 mg DAILY PO 03/29/25 10:00 04/04/25 09:56 81 MG Paroxetine HCl 10 mg DAILY PO 03/29/25 10:00 04/04/25 09:56 10 MG Patient Own Medication 500 mg TID PO 03/29/25 14:00 Hydralazine HCl 100 mg BID PO 03/29/25 11:00 04/04/25 09:58 100 MG Ipratropium Early 0.5 mg Q4HPRN PRN NEB 03/29/25 11:30 Albuterol 2.5 mg Q4HPRN PRN NEB 03/29/25 11:30 Patient Own Medication 12 unit QAM SC 03/30/25 07:00 04/04/25 07:18 12 UNIT Vancomycin HCl 0 ml @ 0 mls/hr UD IV 03/30/25 11:00 Empaglifozin 25 mg DAILY PO 03/31/25 10:00 04/04/25 09:59 25 MG Piperacillin Sod/ Tazobactam Sod 50 ml @ 12.5 mls/hr Q8H IV 03/31/25 06:00 04/04/25 05:13 12.5 MLS/HR Pantoprazole Sodium 40 mg DAILY@0800 PO 04/02/25 08:00 04/04/25 09:57 40 MG Levetiracetam 250 mg BID PO 04/01/25 22:00 04/04/25 09:57 250 MG Levothyroxine Sodium 25 mcg DAILY@0600 PO 04/02/25 06:00 04/04/25 05:13 25 MCG Diagnostic Test (Pha) 1 strip IQ4HR 04/03/25 08:00 04/04/25 07:49 1 STRIP Insulin Human Regular IQ4HR SC 04/03/25 08:00 Dextrose 50 ml UD PRN IV 04/03/25 06:15 Examination: LUNGS:Normal, CVS:Normal, MSK:Normal laboratory and microbiology Laboratory Tests 04/04/25 06:04 04/03/25 05:42 Test 04/04/25 06:04 Range/Units Serum Glucose 249 #H 74-106 mg/dL Microbiology Date/Time Source Procedure Growth Status 03/31/25 11:17 Arm Gram Stain - Final Complete 03/31/25 11:17 Arm Wound Culture - Final Complete 03/29/25 02:39 Blood Blood Culture - Final NO GROWTH AFTER 5 DAYS OF INCUBATION. Complete Problem List/Assessment/Plan Problem List/Assessment/Plan End-stage renal disease on hemodialysis Acute on chronic respiratory failure Congestive heart failure exacerbation CVA with left hemiplegia Hyperkalemia, resolved Chest pain Hypertension Seizure disorder Diabetes mellitus type 2 Anemia of chronic kidney disease Recommendations Next hemodialysis 04/06 Epogen 51387 subQ 3 times weekly Strict I&Os Lokelma 10 g p.o. Low K renal diet Blood pressure control Cardiology consult will continue to follow Total care time 25 minute Plan discussed with: Patient, Spouse Dietary Evaluation Review Comments: Nutrition Recommendation 1) Consider CCHO 60gm + renal standard diet 2) Monitor PO intake, lab values, weight trend, and I/O Expected Outcomes/Goals: Lab values to improve Fu 3-5 days NARCISO JONES MD Apr 04, 2025 11:01
[2025-04-04] MEDS ORDERED: hydrALAZINE HCL 20 MG/ML VL IV PRN (13:45)
--- NOTE | 2025-04-04 14:52 | DVHPN2 ---
Subjective No changes Reviewed: Care Plan, H&P, Labs, Medications, Previous Orders, Radiology Changes from previous H/P or p: No Changes General: Per HPI Objective Vitals Vital Signs Date Time Temp Pulse Resp B/P (MAP) Pulse Ox O2 Delivery O2 Flow Rate FiO2 04/04/25 12:32 97.6 52 18 186/71 (109) 100 97.6 04/04/25 07:50 Room Air* 1 N/A Nasal Cannula* Intake/Output Intake and Output 04/04/25 07:00 Intake Total 1234 ml Output Total 0 ml Balance 1234 ml Intake Oral 1084 ml IV Total 150 ml Output Urine Total 0 ml General Appearance: Alert, Oriented X3, Cooperative, No acute distress HEENT: Atraumatic Lungs: Clear to auscultation, Normal air movement, Other (Breath sounds at bases) Cardiovascular: Regular rate Abdomen: Normal bowel sounds, Soft, No tenderness, No hepatospenomegaly Medications Current Medications Medications Dose Ordered Sig/Tomasa Route Start Time Stop Time Status Last Admin Dose Admin Sodium Chloride 10 ml Q8HR IV 03/29/25 14:00 04/04/25 05:13 10 ML Ondansetron HCl 4 mg Q4HP PRN IV 03/29/25 07:45 Docusate Sodium 100 mg BID PO 03/29/25 10:00 04/04/25 09:58 100 MG Acetaminophen 650 mg Q6HP PRN PO 03/29/25 07:45 03/29/25 10:19 650 MG Nitroglycerin 0.4 mg Q5MINP PRN SL 03/29/25 07:45 Morphine Sulfate 2 mg Q30M PRN IV 03/29/25 08:00 Atorvastatin Calcium 20 mg HS PO 03/29/25 22:00 04/03/25 21:24 20 MG Gabapentin 100 mg DAILY@DINNER PO 03/29/25 17:30 04/03/25 17:00 100 MG Phenytoin Sodium 200 mg DAILY@1400 PO 03/29/25 14:00 04/04/25 13:08 200 MG Amlodipine Besylate 10 mg DAILY PO 03/29/25 10:00 04/04/25 09:57 10 MG Aspirin 81 mg DAILY PO 03/29/25 10:00 04/04/25 09:56 81 MG Paroxetine HCl 10 mg DAILY PO 03/29/25 10:00 04/04/25 09:56 10 MG Patient Own Medication 500 mg TID PO 03/29/25 14:00 Hydralazine HCl 100 mg BID PO 03/29/25 11:00 04/04/25 09:58 100 MG Ipratropium [place] 0.5 mg Q4HPRN PRN NEB 03/29/25 11:30 Cancel Albuterol 2.5 mg Q4HPRN PRN NEB 03/29/25 11:30 Cancel Patient Own Medication 12 unit QAM SC 03/30/25 07:00 04/04/25 07:18 12 UNIT Vancomycin HCl 0 ml @ 0 mls/hr UD IV 03/30/25 11:00 Empaglifozin 25 mg DAILY PO 03/31/25 10:00 04/04/25 09:59 25 MG Piperacillin Sod/ Tazobactam Sod 50 ml @ 12.5 mls/hr Q8H IV 03/31/25 06:00 04/04/25 13:08 12.5 MLS/HR Pantoprazole Sodium 40 mg DAILY@0800 PO 04/02/25 08:00 04/04/25 09:57 40 MG Levetiracetam 250 mg BID PO 04/01/25 22:00 04/04/25 09:57 250 MG Levothyroxine Sodium 25 mcg DAILY@0600 PO 04/02/25 06:00 04/04/25 05:13 25 MCG Diagnostic Test (Pha) 1 strip IQ4HR 04/03/25 08:00 04/04/25 12:14 1 STRIP Insulin Human Regular IQ4HR SC 04/03/25 08:00 04/04/25 12:14 4 UNITS Dextrose 50 ml UD PRN IV 04/03/25 06:15 Hydralazine HCl 10 mg Q2HP PRN IV 04/04/25 13:45 Laboratory Results Laboratory Tests 04/03/25 05:42 04/04/25 06:04 Chemistry Test 04/04/25 06:04 Calcium Level 7.9 mg/dL (8.7-10.4) L Microbiology Microbiology Date/Time Source Procedure Growth Status 03/31/25 11:17 Arm Gram Stain - Final Complete 03/31/25 11:17 Arm Wound Culture - Final Complete 03/29/25 02:39 Blood Blood Culture - Final NO GROWTH AFTER 5 DAYS OF INCUBATION. Complete Assessment/Plan Assessment/Plan Acute on chronic diastolic heart failure Hyperkalemia End-stage renal disease on hemodialysis Seizures COPD and possible pneumonia History of CVA with left-sided deficits Diabetes Hypertension Hypothyroidism Small bilateral pleural effusion Plan Hydralazine IV p.r.n. for high blood pressure. Continue current plan of care otherwise. Possible home tomorrow if stable Plan discussed with: Patient, Spouse My Orders Orders - LEV DAVISON MD Procedure Category Date Status Time Hydralazine Injection PHA 04/04/25 In Process (Apresoline Inject 13:45 Date of Service: Apr 04, 2025 Billing Provider: LEV DAVISON MD Common Visit Codes: [id number] INP/OBS CARE(HIGH) LEV DAVISON MD Apr 04, 2025 14:52
[2025-04-05 01:00] VITALS: BP 120/59; PULSE 47; RESP 16; O2SAT 100
[2025-04-05] MEDS ORDERED: CALCIUM CHLOR(10%) 100MG/ML 10ML SYRINGE IV ONE ×2 (04:23)
[2025-04-05] MEDS ORDERED: EPINEPHrine HCL 250 ML IV ONE (04:24)
[2025-04-05] MEDS ORDERED: EPINEPHrine HCL 1 MG/10 ML SYRG ONE (04:27)
[2025-04-05 05:04] LABS: Hematocrit 20.9 % (41.0-53.0); Mean Corpuscular Hemoglobin 31.5 pg (28.0-32.0); Mean Corpuscular Volume 98.4 fL (80.0-100.0); Nucleated Red Blood Cells % 0.9 %
[2025-04-05 05:18] LABS: Hemoglobin 6.7 g/dL (13.5-17.5)
[2025-04-05 05:19] LABS: Anion Gap 22 (5-15); BUN/Creatinine Ratio 11.6 (10.0-20.0); Calcium 10.4 mg/dL (8.7-10.4); Chloride 105 mmol/L (98-107); Sodium 145 mmol/L (136-145)
[2025-04-05 05:20] LABS: Alanine Aminotransferase 127 U/L (7-40); Albumin 1.4 g/dL (3.2-4.8); Alkaline Phosphatase 151 U/L (46-116); Bilirubin, Total < 0.2 mg/dL (0.2-1.0); Blood Urea Nitrogen 46 mg/dL (9-23); Carbon Dioxide 18 mmol/L (20-31); Total Protein 2.6 g/dL (5.7-8.2)
[2025-04-05 05:21] LABS: Glucose 418 mg/dL (74-106); Potassium 5.7 mmol/L (3.5-5.1)
[2025-04-05 05:39] LABS: INR 1.6 (0.9-1.15); Partial Thromboplastin Time 67.2 SEC (24.5-34.5); Prothrombin Time 16.2 sec (9.3-11.8)
--- NOTE | 2025-04-05 06:21 | RESUS ---
CODE BLUE ASSESSSMENT History of Events History of Events: 60 y/o M is BIBA for c/c of left sided chest pain. Significant history of Cardiomegaly, CHF, COPD, CVA w/residual left sided weakness and established baseline of A&Ox1, DM, ESRD w/HD T/Th/Sat, and HTN. Per EMS personnel report, patient endorses on onset of pain, that is reproducible with palpation, this morning. Patient comments on history of similar pain in the past when he was found with pleural effusion and suspects on having the same condition, again. Tonight pt became bradycardic, on assessment pt was noted to be bleeding from left fistula large amount no pulse. Initial Information Date: Apr 05, 2025 Time: 03:41 [place]rest[place] Witnessed: No CPR started by whom: Hospital Staff Pre-Hospital Care: ACLS Type of arrest: Cardiac, Respiratory, Adult Spontaneous Respirations: No Pulse Present: No Monitoring: ECG, Pulse Oximetry, Apnea Crash Cart Opened and Supplies: Yes Airway Ventilation Breathing at Onset: Apneic O2 Sat by Pulse Oximetry: 0 Time of first Assisted Ventila: 03:48 Artificial Ventilation: Bag/Endo tube Intubation Size: 7.5 cuffed Intubated by: FROST Intubation Attempts: 1 Intubated orally: Yes Intubated Nasaly: No Tube secured at: 24 Cricoid pressure done: No CO2 indicator used: Yes Confirmation: Auscultation, Exhaled CO2 Suctioning (Oral/Tracheal): No Circulation Circulation : Time: 03:41 Pulse Rate (adult): 0 Blood Pressure Systolic: 0 Blood Pressure Diastolic: 0 Temperature (Fahrenheit): 97 Defibrillation Defbrillation #1: Time Defibrillator Applied: 03:50 EKG Rhythm: V-Fibrillation Compressions: Device Compressions Hold/Resume: 0350 Time Defibrillator Shocked Pt.: 03:50 Defib. Joules: 200 Pulse Present: No EKG Rhythm: V-Fibrillation Defbrillation #2: Time Defibrillator Applied: 03:53 EKG Rhythm: V-Fibrillation Compressions: Device Compressions Hold/Resume: 0353 Time Defibrillator Shocked Pt.: 03:53 Defib. Joules: 200 Pulse Present: No EKG Rhythm: V-Fibrillation Defbrillation #3: Time Defibrillator Applied: 03:56 EKG Rhythm: V-Fibrillation Compressions: Device Compressions Hold/Resume: 0356 Time Defibrillator Shocked Pt.: 03:56 Defib. Joules: 200 Pulse Present: No EKG Rhythm: V-Fibrillation Defbrillation #4: Time Defibrillator Applied: 03:59 EKG Rhythm: V-Fibrillation Compressions: Device Compressions Hold/Resume: 0359 Time Defibrillator Shocked Pt.: 03:59 Defib. Joules: 200 Pulse Present: No EKG Rhythm: V-Fibrillation Defbrillation #5: Time Defibrillator Applied: 04:02 EKG Rhythm: V-Fibrillation Compressions: Device Compressions Hold/Resume: 0402 Time Defibrillator Shocked Pt.: 04:02 Defib. Joules: 200 Pulse Present: No EKG Rhythm: V-Fibrillation Defbrillation #6: Time Defibrillator Applied: 04:05 Compressions: Device Compressions Hold/Resume: 0405 Time Defibrillator Shocked Pt.: 04:05 Defib. Joules: 200 Pulse Present: No EKG Rhythm: V-Fibrillation Defbrillation #7: Time Defibrillator Applied: 04:08 EKG Rhythm: V-Fibrillation Compressions: Device Compressions Hold/Resume: 0408 Time Defibrillator Shocked Pt.: 04:08 Pulse Present: No EKG Rhythm: V-Fibrillation Procedure - IV Procedure - IV #1: IV start time: 04:08 IV Side: Right IV Location: External Jugular IV Placed: In Hospital IV Placed by FROST IV Gauge: 18 IV Line Care: Saline Flush Procedure - IV #2: IV Side: Right IV Location: Upper Arm Anterior IV Catheter Type: Mid-line IV Placed: In Hospital Comment PREVIOUSLY PLACED Medications & Response Medications and Responses #1: Medication Time: 03:44 ADULT Medications Given ADULT: Epinephrine 1 mg Route of Administration: IV Heart Rate: 0 EKG Rhythm: PEA Blood Pressure Systolic: 0 Blood Pressure Diastolic: 0 Respiratory Rate: 0 O2 Sat by Pulse Oximetry: 0 IV Line Rate: 1000 EKG Rhythm: PEA Comment NO PULSE 0347 Medications and Responses #2: Medication Time: 03:47 ADULT Medications Given ADULT: Epinephrine 1 mg Route of Administration: IV Heart Rate: 0 EKG Rhythm: PEA Blood Pressure Systolic: 0 Blood Pressure Diastolic: 0 Respiratory Rate: 0 O2 Sat by Pulse Oximetry: 0 IV Line Rate: 1000 EKG Rhythm: V-Fibrillation Comment 0350 NO PULSE Medications and Responses #3: Medication Time: 03:50 ADULT Medications Given ADULT: Epinephrine 1 mg, 2 Amps Na Bicarb Route of Administration: IV Heart Rate: 0 EKG Rhythm: V-Fibrillation Blood Pressure Systolic: 0 Blood Pressure Diastolic: 0 Respiratory Rate: 0 O2 Sat by Pulse Oximetry: 0 Comment FIRST UNIT OF UNCROSSED BLOOD STARTED, NO PULSE AT 0353 Medications and Responses #4: Medication Time: 03:53 ADULT Medications Given ADULT: Epinephrine 1 mg, Calcium Chloride 10 mL Route of Administration: IV Heart Rate: 0 EKG Rhythm: V-Fibrillation Blood Pressure Systolic: 0 Blood Pressure Diastolic: 0 Respiratory Rate: 0 O2 Sat by Pulse Oximetry: 0 EKG Rhythm: V-Fibrillation Comment NO PULSE 0356 Medications and Responses #5: Medication Time: 03:56 ADULT Medications Given ADULT: Epinephrine 1 mg, Amiodarone 300 mg Route of Administration: IV Heart Rate: 0 EKG Rhythm: V-Fibrillation Blood Pressure Systolic: 0 Blood Pressure Diastolic: 0 Respiratory Rate: 0 O2 Sat by Pulse Oximetry: 0 EKG Rhythm: V-Fibrillation Comment NO PULSE 0359 Medications and Responses #6: Medication Time: 03:59 ADULT Medications Given ADULT: Epinephrine 1 mg Route of Administration: IV Heart Rate: 0 EKG Rhythm: V-Fibrillation Blood Pressure Systolic: 0 Blood Pressure Diastolic: 0 Respiratory Rate: 0 O2 Sat by Pulse Oximetry: 0 EKG Rhythm: V-Fibrillation Comment NO PULSE 0402 Medications and Responses #7: Medication Time: 04:02 ADULT Medications Given ADULT: Epinephrine 1 mg, Calcium Chloride 10 mL Heart Rate: 0 EKG Rhythm: V-Fibrillation Blood Pressure Systolic: 0 Blood Pressure Diastolic: 0 Respiratory Rate: 0 O2 Sat by Pulse Oximetry: 0 EKG Rhythm: V-Fibrillation Comment FIRST UNIT OF BLOOD FINISHED SECOND UNIT STARTED. NO PULSE AT 0405 Medications and Responses #8: Medication Time: 04:05 ADULT Medications Given ADULT: Epinephrine 1 mg, Sodium Bacarbinate 50 meq, Magnesium Sulfate 2 gm Route of Administration: IV Heart Rate: 0 EKG Rhythm: V-Fibrillation Blood Pressure Systolic: 0 Blood Pressure Diastolic: 0 Respiratory Rate: 0 O2 Sat by Pulse Oximetry: 0 EKG Rhythm: V-Fibrillation Comment NO PULSER 0408 Medications and Responses #9: Medication Time: 04:08 ADULT Medications Given ADULT: Epinephrine 1 mg Route of Administration: IV Heart Rate: 0 EKG Rhythm: V-Fibrillation Blood Pressure Systolic: 0 Blood Pressure Diastolic: 0 Respiratory Rate: 0 O2 Sat by Pulse Oximetry: 0 EKG Rhythm: Sinus Rhythm Comment ROSC 0411 VS 110/48, P 70 SAT 90, SECOND UNIT OF BOOD COMPLETED 3RD UNIT STARTED. 0416 PT ASYSTOLE NO PULSE Medications and Responses #10: Medication Time: 04:11 ADULT Medications Given ADULT: Epinephrine 1 mg, Sodium Bacarbinate 50 meq, Calcium Chloride 10 mL Route of Administration: IV Heart Rate: 0 EKG Rhythm: Asystole Blood Pressure Systolic: 0 Blood Pressure Diastolic: 0 Respiratory Rate: 0 O2 Sat by Pulse Oximetry: 0 EKG Rhythm: Asystole Comment NO PULSE 0419 Medications and Responses #11: Medication Time: 04:19 ADULT Medications Given ADULT: Epinephrine 1 mg Route of Administration: IV Heart Rate: 0 EKG Rhythm: Asystole Blood Pressure Systolic: 0 Blood Pressure Diastolic: 0 Respiratory Rate: 0 O2 Sat by Pulse Oximetry: 0 EKG Rhythm: Asystole Comment NO PULSE 0421, 3RD UNIT OF BLOOD COMPLETED Medications and Responses #12: Medication Time: 04:21 ADULT Medications Given ADULT: Epinephrine 1 mg Route of Administration: IV Heart Rate: 0 EKG Rhythm: Asystole Blood Pressure Systolic: 0 Blood Pressure Diastolic: 0 Respiratory Rate: 0 O2 Sat by Pulse Oximetry: 0 EKG Rhythm: Asystole Comment NO PULSE 0423, PT PRONOUNCED Pacing Pacer Pads Applied and Pacing: Yes Nurses Notes [place] Coma Scale Eye Opening: None (1) [place] Coma Scale Verbal: None (1) [place] Coma Scale Motor: None (1) [place] Total: 3 Pupil Reaction: Non Reactive Bedside Blood Glucose: 182 EKG Rhythm: Asystole Time Code Ended Time Code Ended: 04:23 Post Arrest Status: Outcome of code: Unsuccessful Patient pronounced by: MARGOT Time patient pronounced: 04:23 Family notified: Yes Attending called: Yes Code Team Present: MARGOT YOU SACK SORTER, COLEMAN RN HS, CINDY RN NAMAN RN, SANTOS RN, ANA RN, ARACELIS RN, GERMAINE RN, OPAL RT, SOTERO RT Post Resuscitation Neurologica Pupil Size: 4 Comment: COLEMAN WAGONER Apr 05, 2025 06:21
--- NOTE | 2025-04-06 18:28 | DES ---
DATE OF DISCHARGE: 04/05/2025 HISTORY OF PRESENT ILLNESS: The patient is a 60-year-old gentleman who was admitted with history of altered level of consciousness and has history of hemodialysis, seizure disorder, hypertension, hyperlipidemia, congestive heart failure, COPD, and previous CVA. HOSPITAL COURSE: The patient had a chest x-ray that showed evidence of right lung infiltrate along with congestive heart failure. He was treated with intravenous antibiotics for possible pneumonia. His blood cultures were negative. The patient was seen in nephrology consult by Dr. Quinn and continued on hemodialysis. Echocardiogram done showed ejection fraction of 65%. The patient on 04/05 was noted to have bradycardia with a large amount of bleeding from his left fistula and no pulse could be obtained. CPR was initiated and the patient on 04/05/2025. FINAL DIAGNOSES: * End-stage renal disease on hemodialysis. * Right-sided aspiration pneumonia. * Bleeding from left fistula. * Hyperkalemia. * History of CVA with left weakness. * Diabetes mellitus. * Hypertension. * Seizure disorder. * Hypothyroidism. * COPD. * Encephalopathy, likely metabolic. * Anemia. MD LUCIO Edwards/KAREN TID: [id number] RECEIPT: [id number]
--- NOTE | 2025-04-08 04:42 | DVHNC2 ---
Intubation Indication: Respiratory Insufficiency, Altered Mental Status, Airway Protection Intubation size: cm (7.5) Informed consent obtained: No Risks/benefits/alt described: No UTO Consent Emergently intubated during code nadja Notes My hands were washed immediately prior to the procedure. I wore a surgical cap, mask with protective eyewear, gown and gloves throughout the procedure. The patient was placed on a groundwater monitoring technician including continuous pulse oximetry. Rapid Sequence Intubation was conducted. . Cricoid pressure was maintained from time induction agent was given to time of cuff balloon inflation. Using a MAC 4 laryngoscope and a size 7.5 endotracheal tube with stylet, the patient was intubated on the 1st attempt. The stylet was removed and cuff balloon was inflated. Appropriate endotracheal tube position was confirmed by direct visualization of vocal cord passage, fogging of the tube, CO2 colormetric indicator and symmetric breath sounds. Date of Service: Apr 05, 2025 Billing Provider: RANDY FROST Common Visit Codes: PROCEDURE ONLY Procedure Codes: [id number], [id number] CODE BLUE RANDY FROST Apr 08, 2025 04:42
== END 2025-04-05 04:24 | DRG 637 ==
LOC: EDBD 02:03 → ER 02:03 → OVERFLOW 07:33 → DOU 12:10 → TELE-WESTW 03-31 22:12
PROVIDERS: ADMIT Nurse Practitioner Acute Care; ATTEND Nurse Practitioner Acute Care
PROC: 5A1D70Z Performance of Urinary Filtration, Intermittent, Less than 6 Hours Per Day (ICD-10-PCS; 2025-03-30)
PROC: 5A1D70Z Performance of Urinary Filtration, Intermittent, Less than 6 Hours Per Day (ICD-10-PCS; 2025-04-01)
PROC: 5A12012 Performance of Cardiac Output, Single, Manual (ICD-10-PCS; principal; 2025-04-05)
PROC: 5A1D70Z Performance of Urinary Filtration, Intermittent, Less than 6 Hours Per Day (ICD-10-PCS; 2025-04-05)
PROC: 0BH17EZ Insertion of Endotracheal Airway into Trachea, Via Natural or Artificial Opening (ICD-10-PCS; 2025-04-05)
DX: E11.65 Type 2 diabetes mellitus with hyperglycemia (principal); G93.41 Metabolic encephalopathy; I50.33 Acute on chronic diastolic (congestive) heart failure; J96.21 Acute and chronic respiratory failure with hypoxia; N18.6 End stage renal disease; J69.0 Pneumonitis due to inhalation of food and vomit; J18.9 Pneumonia, unspecified organism; I13.2 Hypertensive heart and chronic kidney disease with heart failure and with stage 5 chronic kidney disease, or end stage renal disease; J44.0 Chronic obstructive pulmonary disease with (acute) lower respiratory infection; I69.354 Hemiplegia and hemiparesis following cerebral infarction affecting left non-dominant side; E87.5 Hyperkalemia; D63.1 Anemia in chronic kidney disease; E78.5 Hyperlipidemia, unspecified; E03.9 Hypothyroidism, unspecified; G40.909 Epilepsy, unspecified, not intractable, without status epilepticus; E11.22 Type 2 diabetes mellitus with diabetic chronic kidney disease; Z99.2 Dependence on renal dialysis; Z83.3 Family history of diabetes mellitus; Z80.8 Family history of malignant neoplasm of other organs or systems; Z74.01 Bed confinement status; Z90.49 Acquired absence of other specified parts of digestive tract; Z79.4 Long term (current) use of insulin
CPT/HCPCS: 36415; 71045; 80048; 80053; 80185; 80202; 82270; 82306; 82565; 82962; 83036; 83605; 83735; 83970; 84100; 84132; 84443; 84484; 85025; 85610; 85730; 86920; 87040; 87081; 87205; 87340; 90935; 93005; 93306; 94640; 96365; 99291; 99292; G0378; J0169; J1100; J1815; J1885; J2250; J2405; J2470; J2543; J2704